=== PATIENT | male | born 1975 | race Caucasian/White ===

== ENCOUNTER 2025-04-03 06:22 | Inpatient (IN) | payer MEDICAID, SELFPAY ==
[2025-04-03] VITALS (10 sets, daily range): BP systolic 154–206; BP diastolic 97–134; PULSE 54–82; RESP 16–21; TEMP 36.1–36.6; O2SAT 95–98; BMI 29.2
--- NOTE | 2025-04-03 | XR_ITS ---
Examinations: MRI Brain without intravenous contrast. MRA brain without intravenous contrast. MRA carotids without intravenous contrast 3-D vascular reconstructions Date and time of exam: April 03, 2025 1438 hours onset stroke alert findings today, onset focal neurologic deficit altered mental status ectasia Technique: Multiple axial and sagittal images of the brain have been obtained MRA brain carotid images without contrast obtained, including 3-D postprocessing, vascular maximum intensity projection images Findings: Sellaturcica is not enlarged. The optic chiasm and infundibular stalk are not remarkable. Prepontine and interpeduncular cisterns are not enlarged. No localized enlargement of the medulla or kevin. Fourth ventricle and cerebellar tonsils normal in position. Subacute hemorrhage is not seen. Fourth ventricle is midline. Mass in the cerebellopontine angle region is not evident. 7th and 8th nerve complexes exhibits symmetry. Globes are symmetrical with no retro-orbital mass. Increased white matter signal prominent Diffusion-weighted images demonstrate small acute infarcts in the right basal ganglia including caudate nucleus Mass-effect upon the ventricular system is not identified. MRA carotid images no significant stenoses. MRA brain images no cerebral large vessel arterial occlusions Impression: Multiple small acute infarcts right basal ganglia including caudate nucleus
--- NOTE | 2025-04-03 06:29 | XR_ITS ---
Examination: CT brain head without contrast. 2-D sagittal coronal reconstructions Date and time of exam:April 03, 2025 0653 hours INDICATIONS: Stroke alert, onset focal neurologic deficit including left-sided body weakness slurred speech today CTDI: vol (mGy):51.4 DLP: (mGycm):1008 Technique: Multiple CT axial sections of the brain have been obtained, 5 mm slice thickness. Contrast has not been administered. 2-D sagittal, coronal reconstructions have been obtained Low dose protocols were performed. One or more of the following dose reduction techniques were used; automated exposure control, adjustment of the mA and/or KV according to patient size, use of iterative reconstruction technique. Findings: No significant ventricular enlargement. Multiple tiny old basal ganglia and left caudate nucleus infarcts Intra-axial or extra-axial hemorrhage density is not seen. No mass effect or midline shift Basal cisterns are not remarkable. Fourth ventricle is midline. Cranial vault intact. Impression: Negative for acute hemorrhage, mass effect or midline shift
--- NOTE | 2025-04-03 06:29 | XR_ITS ---
Examination: CTA carotids with intravenous contrast CTA brain, head with intravenous contrast. 2-D sagittal, coronal reconstructions. 3-D reconstructions. Exam date and time: April 03, 2025, 0658 hours INDICATIONS: Stroke alert, onset left-sided body weakness slurred speech today CTDI: vol (mGy) 39.4 DLP: (mGycm) 490. Technique: Multiple CTA axial brain, head carotid images post intravenous contrast injection 75 cc, Isovue-370. 2-D sagittal, coronal reconstructions. 3-D reconstructions, 3-D post processing including vascular maximum intensity projection images. Low dose protocols were performed. One or more of the following dose reduction techniques were used; automated exposure control, adjustment of the mA and/or KV according to patient size, use of iterative reconstruction technique. Findings: No significant common carotid carotid bifurcation or internal carotid artery stenoses Dominant right vertebral artery in the neck with no critical stenoses Intracranial vertebral arteries basilar artery posterior cerebral branches fill with no large vessel occlusions Juxtasellar internal carotid arteries and M1 segments middle cerebral arteries middle cerebral artery trifurcation vessels and anterior cerebral arteries fill with no large vessel occlusions IMPRESSION: No significant neck arterial stenoses No cerebral large vessel arterial occlusions or thromboses As clinically warranted, brain MRI MRA without contrast, stroke protocol, would best assess for demyelinating disease as well as acute ischemic change
[2025-04-03 06:46] LABS: Basophils # (Auto) 0.1 Thou/mm3 (0.0-0.2); Basophils % (Auto) 1 % (0-2.5); Eosinophils # (Auto) 0.4 Thou/mm3 (0.0-0.5); Eosinophils % (Auto) 3 % (0-10); Hematocrit 50.1 % (41.0-53.0); Hemoglobin 16.3 g/dL (13.5-16.0); Immature Granulocytes Auto 0.06 Thou/mm3 (0.00-0.00); Lymphocytes # (Auto) 2.6 Thou/mm3 (1.0-4.8); Lymphocytes % (Auto) 20 % (10-50); Mean Corpuscular HGB Conc 32.5 g/dl (31.0-37.0); Mean Corpuscular Hemoglobin 30.6 pg (25.0-35.0); Mean Corpuscular Volume 94 fL (80-100); Monocytes # (Auto) 0.9 Thou/mm3 (0.0-0.8); Monocytes % (Auto) 7 % (0-12); Neutrophils # (Auto) 9.1 Thou/mm3 (1.8-7.7); Neutrophils % (Auto) 69 % (37-80); Nucleated Red Blood Cell # 0.00 Thou/mm3 (0.00-0.00); Nucleated Red Blood Cell % 0 /100 WBC (0); Platelet Count 469 Thou/mm3 (140-440); RDW Standard Deviation 48.2 fL (35.1-43.9); Red Blood Count 5.33 Miln/mm3 (4.50-5.90); White Blood Count 13.1 Thou/mm3 (3.8-10.6)
[2025-04-03 06:57] LABS: INR 1.0 (0.9-1.3); Partial Thromboplastin Time 30.4 Seconds (22.0-36.0); Prothrombin Time 10.7 Seconds (9.0-12.2)
[2025-04-03 07:02] LABS: Alanine Aminotransferase 13 U/L (10-49); Albumin, Serum 4.8 gm/dL (3.5-5.0); Albumin/Globulin Ratio 1.7 (1.2-2.2); Alcohol, Blood Medical < 3.0 mg/dL (0-10.0); Alkaline Phosphatase 136 U/L (46-116); Anion Gap 9 (7-16); Aspartate Amino Transferase 19 U/L (0-34); BUN/Creatinine Ratio 13 Ratio (12-20); Bilirubin,Total 0.4 mg/dL (0.3-1.2); Blood Urea Nitrogen 15 mg/dL (9-23); Calcium 10.4 mg/dL (8.3-10.6); Calcium (Corrected) 10.4 mg/dL (8.5-10.1); Carbon Dioxide 27.9 mMol/L (20.0-31.0); Chloride 105 mMol/L (98-107); Creatinine (Component) 1.2 mg/dL (0.6-1.3); Estimated Creatinine Clearance 87.7 mL/min (>60); Globulin 2.8 gm/dL (2.3-3.5); Glucose 110 mg/dL (74-106); Magnesium 1.6 mg/dL (1.6-2.6); Osmolality,Calculated 284 (275-295); Potassium 3.8 mMol/L (3.4-5.1); Sodium 142 mMol/L (136-145); Total Protein 7.6 gm/dL (5.7-8.2); Troponin I 0.021 ng/mL (0.0-0.045); eGFR > 60 See Note
[2025-04-03] MEDS: SODIUM CHLORIDE 0.9% 1000 ML 1,000 ML 60 ML IV ×2 (07:13→17:42)
--- NOTE | 2025-04-03 07:17 | EKG_ITS ---
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
[2025-04-03 07:29] LABS: B-Type Natriuretic Peptide 56 pg/mL (0-100)
--- NOTE | 2025-04-03 07:29 | PD.EDNEURO ---
Neuro Symptoms Deficit-RME/HPI General Chief Complaint: General Adult/Misc Complain Stated Complaint: POSS STROKE Time Seen by Provider: 04/03/25 06:29 Arrival date/time: 04/03/25 06:22 Limitations: no limitations RME / HPI RME / HPI Narrative: 49 year old male with history of hypertension and medication noncompliance presents to the ED for evaluation of stroke-like symptoms beginning just before 14:25h yesterday. Reports sudden onset of being unable to form sentences accompanied by a mild headache, mild loss of balance, left facial droop and left sided weakness. States his symptoms persisted all through the evening and night. This morning, noted symptoms appeared slightly worse and presented to the ED. Initially refused to come to the hospital yesterday. Patient denies any history of stroke though does report family history of strokes. Denies fevers, chills, chest pain, cough, shortness of breath, abdominal pain, nausea, vomiting, diarrhea, constipation, or urinary symptoms. Related Data Previous Rx's ?Medication ?Instructions ?Recorded hydrochlorothiazide 25 mg tablet 25 mg PO QAM #10 tabs 01/02/18 Allergies Allergy/AdvReac Type Severity Reaction Status Date / Time NKA* Allergy Uncoded 01/02/18 09:10 Review of Systems Review of Systems Systems Reviewed: All systems reviewed, normal except as documented Past Medical History Past Medical History CARDIAC: Positive Hypertension; Negative Congestive Heart Failure RESPIRATORY: Negative Chronic Obstructive Pulmonary Disease (COPD) GENITOURINARY: Negative Renal Disease ENDOCRINE: Negative Diabetes Mellitus Type 1 or Diabetes Mellitus Type 2 Social History SMOKING STATUS: Current some day smoker ED Exam General Limitations: Present no limitations General appearance: Present alert and other (emotional, tearful ) Head Head exam: Present atraumatic, normocephalic and normal inspection Eye Eye exam: Present normal appearance, PERRL and EOMI ENT ENT exam: Present normal exam, normal oropharynx and mucous membranes moist Neck Neck exam: Present normal inspection, full ROM and trachea midline Chest Chest inspection: Present normal inspection and symmetric chest wall rise Respiratory Respiratory exam: Present normal lung sounds bilaterally Cardiovascular Cardiovascular exam: Present regular rate, normal rhythm and normal heart sounds Abdominal Exam Abdominal exam: Present soft and normal bowel sounds Extremities Exam Extremities exam: Present normal inspection and full ROM Back Exam Back exam: Present normal inspection and full ROM Neurological Exam Neurological exam: Present alert, oriented X3 and other (Mild left facial droop, mild left upper and left lower extremity weakness, normal gait, mild to moderate expressive aphasia, no receptive aphasia) Psychiatric Psychiatric exam: Present normal affect and normal mood Skin Skin exam: Present warm, dry, intact and normal color Course Quality Measures Suspected type of Stroke: Acute Ischemic Last known well (date): 04/02/25 Last known well (time): 14:45 Tenecteplase given: Reason(s) TPA not given: Outside the time window not given stroke Orders Category Date Time Status Bedside Blood Glucose NOW Care 04/03/25 06:29 Active COVID-19 Screening Questionnaire NOW Care 04/03/25 07:24 Active Tail Sawyer NOW Care 04/03/25 06:29 Active Continuous Pulse Oximetry NOW Care 04/03/25 06:29 Completed Decision to Admit X1 Care 04/03/25 07:23 Completed EKG (ED ONLY) *Do not use* NOW Care 04/03/25 07:17 Completed Insert IV NOW Care 04/03/25 06:29 Active NIH Stroke Scale now Care 04/03/25 06:29 Active NPO NOW Care 04/03/25 06:29 Active Neuro Check Q15MIN Care 04/03/25 06:29 Active Nurse Swallow Screen x1 Care 04/03/25 06:29 Active Consult to Neurology / Tele-Neurology Routine Cons 04/03/25 06:[address] angio stroke protocol Stat Exams 04/03/25 06:[address] stroke protocol Stat Exams 04/03/25 06:29 Completed EKG (ED Only) Stat Exams 04/03/25 07:17 Draft Alcohol, Blood Medical Stat Lab 04/03/25 06:32 Completed B-Type Natriuretic Peptide Stat Lab 04/03/25 06:32 Completed CBC Stat Lab 04/03/25 06:32 Completed Comprehensive Metabolic Panel Stat Lab 04/03/25 06:32 Completed Drug Screen,Urine Stat Lab 04/03/25 06:29 Ordered Magnesium Stat Lab 04/03/25 06:32 Completed Partial Thromboplastin Time Stat Lab 04/03/25 06:32 Completed Prothrombin Time with INR Stat Lab 04/03/25 06:32 Completed Troponin I Stat Lab 04/03/25 06:32 Completed Urinalysis Stat Lab 04/03/25 06:29 Ordered Urine Culture Stat Lab 04/03/25 06:29 Ordered Aspirin Med 04/03/25 07:15 Discontinued 325 mg PO X1 ONE Clopidogrel [Plavix] Med 04/03/25 07:15 Discontinued 150 mg PO X1 ONE Sodium Chloride 0.9% 1000 ml [Ns] 1,000 ml Med 04/03/25 06:30 Active IV Q10H Oxygen Delivery NOW RT 04/03/25 06:29 Active Vital Signs Vital signs: Vital Signs Pulse Rate 76 04/03/25 06:22 Respiratory Rate 21 H 04/03/25 06:22 Blood Pressure 206/128 H 04/03/25 06:22 Pulse Oximetry (%) 95 04/03/25 06:22 Oxygen Delivery Method Room Air 04/03/25 06:22 Pulse ox is 95% on room air which is adequate. Neuro Symptoms / Deficit MDM Narrative MDM Narrative:: Tessa Dunham am scribing for and in the presence of Dr. Patton. Patient data External records reviewed:: [facility] previous records (I reviewed ED Visit on 01/02/2018 for uncontrolled hypertension ) Clinical information provided by:: patient and spouse ( adds to hpi) Social determinants that could affect healthcare access:: none Patient has the following chronic illnesses:: Hypertension with medication non-compliance How is presenting disease/condition affected by chronic disease/condition?: exacerbated by Evaluation data The following diagnostics were reviewed and interpreted by me:: lab results, radiology exam(s) and EKG tracing(s) (04/03/2025 @ 07:22h. NSR, rate 75, no STEMI. ) Lab and/or radiology exams considered but not ordered:: None Interpretation Summary: Ordering Physician: Jef Patton MD Date of Service: 04/03/25 Procedure(s): CT stroke protocol Accession Number(s): [id number] cc: Jef Patton MD; Humza Garcia MD; Temporary Provider,ED ~ Examination: CT brain head without contrast. 2-D sagittal coronal reconstructions Date and time of exam:April 03, 2025 0653 hours INDICATIONS: Stroke alert, onset focal neurologic deficit including left-sided body weakness slurred speech today CTDI: vol (mGy):51.4 DLP: (mGycm):1008 Technique: Multiple CT axial sections of the brain have been obtained, 5 mm slice thickness. Contrast has not been administered. 2-D sagittal, coronal reconstructions have been obtained Low dose protocols were performed. One or more of the following dose reduction techniques were used; automated exposure control, adjustment of the mA and/or KV according to patient size, use of iterative reconstruction technique. Findings: No significant ventricular enlargement. Multiple tiny old basal ganglia and left caudate nucleus infarcts Intra-axial or extra-axial hemorrhage density is not seen. No mass effect or midline shift Basal cisterns are not remarkable. Fourth ventricle is midline. Cranial vault intact. Impression: Negative for acute hemorrhage, mass effect or midline shift Dictated By: Humza Garcia MD Signed By: <Electronically signed by Humza Garcia MD in OV> 04/03/25 0644 Ordering Physician: Jef Patton MD Date of Service: 04/03/25 Procedure(s): CT angio stroke protocol Accession Number(s): [id number] cc: Jef Patton MD; Steven Green MD; Humza Garcia MD~ Examination: CTA carotids with intravenous contrast CTA brain, head with intravenous contrast. 2-D sagittal, coronal reconstructions. 3-D reconstructions. Exam date and time: April 03, 2025, 0658 hours INDICATIONS: Stroke alert, onset left-sided body weakness slurred speech today CTDI: vol (mGy) 39.4 DLP: (mGycm) 490. Technique: Multiple CTA axial brain, head carotid images post intravenous contrast injection 75 cc, Isovue-370. 2-D sagittal, coronal reconstructions. 3-D reconstructions, 3-D post processing including vascular maximum intensity projection images. Low dose protocols were performed. One or more of the following dose reduction techniques were used; automated exposure control, adjustment of the mA and/or KV according to patient size, use of iterative reconstruction technique. Findings: No significant common carotid carotid bifurcation or internal carotid artery stenoses Dominant right vertebral artery in the neck with no critical stenoses Intracranial vertebral arteries basilar artery posterior cerebral branches fill with no large vessel occlusions Juxtasellar internal carotid arteries and M1 segments middle cerebral arteries middle cerebral artery trifurcation vessels and anterior cerebral arteries fill with no large vessel occlusions IMPRESSION: No significant neck arterial stenoses No cerebral large vessel arterial occlusions or thromboses As clinically warranted, brain MRI MRA without contrast, stroke protocol, would best assess for demyelinating disease as well as acute ischemic change Dictated By: Humza Garcia MD Signed By: <Electronically signed by Humza Garcia MD in OV> 04/03/25 0741 Medications / Prescriptions Medications or Prescriptions considered but not ordered:: none Medication administrations:: Medication Administration History Sodium Chloride (Ns) 1,000 mls @ 60 mls/hr IV Q10H YAMILETH Stop: 05/03/25 06:29 Last Admin: 04/03/25 07:13 Dose: 60 mls/hr Documented By: DB Discontinued Medications Aspirin (Aspirin 325 Mg Tablet) 325 mg PO X1 ONE Stop: 04/03/25 07:16 Clopidogrel Bisulfate (Clopidogrel Bisulfate 75 Mg Tablet) 150 mg PO X1 ONE Stop: 04/03/25 07:16 See above Consultations Consultation(s) initiated? (list below): Yes Consultation #1 (Physician, Specialty, Details): I spoke with teleneurologist and recommends starting the patient on Plavix and Aspirin and admission from stroke work-up. Diagnosis Neuro Differential Diagnosis: subarachnoid hemorrhage, cerebrovascular accident and transient cerebral ischemia Most likely diagnosis given after review of the tests above:: Acute CVA Accelerated hypertension Admission Indicated Admission indicated?: indicated Admission Request Was there a request for admission?: Yes Admission Attestation Admission request attestation: Discussed case with [] from Hospitalist service regarding admission. Discussed patients ED course, exam findings, labs, and radiology results. The Hospitalist [agrees,declines] to accept the patient for admission. Disposition Plan Disposition Plan: Admit Critical Care Time Critical Care Time Critical Care Time: Yes Total Critical Care Time (min.): 45 Attestation: The high probability of sudden, clinically significant deterioration in the patient's condition required the highest level of my preparedness to intervene urgently. The services I provided to this patient were to treat and/or prevent clinically significant deterioration. Services included the following: chart data review, reviewing nursing notes and/or old charts, documentation time, customer support consultant collaboration regarding findings and treatment options, medication orders and management, direct patient care, vital sign assessments and ordering, interpreting and reviewing diagnostic studies and lab tests. Aggregate critical care time includes only time during which I was engaged in work directly related to the patient's care, as described above, whether at bedside or elsewhere in the Emergency Department. It did not include time spent performing other reported procedures or the services of residents, students, nurses or physician assistants. Discharge Plan Plan Patient Disposition: Admit Acute Care w/in Hospital Prescriptions/Referrals Prescriptions/Med Rec: No Action hydrochlorothiazide 25 mg tablet 25 mg PO QAM Qty: 10 0RF Referrals: Temporary Provider,ED [Physician] - In 1 week Problem List Clinical Impression: Acute cerebrovascular accident (CVA), Accelerated hypertension Patient/Caregiver Discharge Instructions Print Language: Iranian Stand Alone Forms: Yakelin Award Info., Patient Portal Info Letter
--- NOTE | 2025-04-03 07:51 | ESCONSULT_ITS ---
Tele Neuro Consultation Consultation Date 04/03/25 Most Recent Vital Signs Last Vital Signs Pulse 78 04/03/25 07:14 Resp 21 H 04/03/25 06:22 BP 206/128 H 04/03/25 06:22 Pulse Ox 95 04/03/25 06:22 O2 Del Method Room Air 04/03/25 06:22 Laboratory-Coagulation Panel PT 10.7 Seconds (9.0-12.2) 04/03/25 06:32 INR 1.0 (0.9-1.3) 04/03/25 06:32 APTT 30.4 Seconds (22.0-36.0) 04/03/25 06:32 Consultation Narrative [facility] Consult [facility] Patient Name:???Catalina Ching Date of :???1975 Identification Number:??? Date of Service:???04/03/2025 06:29:43 Diagnosis:?I63.00 - Cerebrovascular accident (CVA) due to thrombosis of precerebral artery (HCCC) Impression: ?Patient is a 49 year old male with history of hypertension who presents for dysarthria and left sided weakness. The symptoms have been ongoing since yesterday afternoon. He is hypertensive on arrival. Presentation concerning for a right subcortical small vessel stroke in setting of poorly controlled blood pressure. Patient states he has not been taking his medications. Admit for further imaging and stroke workup. Our recommendations are outlined below. Recommendations: ? Stroke/Telemetry Floor ? Neuro Checks (Q4) ? Bedside Swallow Eval ? DVT Prophylaxis ? IV Fluids, Normal Saline ? Head of Bed 30 Degrees ? Euglycemia and Avoid Hyperthermia (PRN Acetaminophen) ? Bolus with Clopidogrel 300 mg bolus x1 and initiate dual antiplatelet th erapy with Aspirin 81 mg daily and Clopidogrel 75 mg daily ? Antihypertensives PRN if Blood pressure is greater than 220/120 or there is a concern for End organ damage/contraindications for permissive HTN. If blood pressure is greater than 220/120 give labetalol PO or IV or Vasotec IV with a goal of 15% reduction in BP during the first 24 hours. ?MRI brain imaging ?2d echo with bubble study ?consider CINTHIA if negative ?telemetry monitoring ?check lipid panel and HgA1C ?lipitor 80mg ?smoking cessation ?PT/OT/speech ?npo until swallow eval performed ?fu with inpatient neurology Sign Out: ? Discussed with Emergency Department Provider Advanced Imaging: CTA Head and Neck Completed. LVO:No Patient is not a candidate for DANIELLE Metrics: Last Known Well: 04/02/2025 14:45:00 Dispatch Time: 04/03/2025 06:29:42 Arrival Time: 04/03/2025 06:22:00 Initial Response Time: 04/03/2025 06:35:00Symptoms: slurred speech and left sided weakness since 2:45pm yesterday. Initial patient interaction: 04/03/2025 06:42:30 NIHSS Assessment Completed: 04/03/2025 06:55:15Patient is not a candidate for Thrombolytic. Thrombolytic Medical Decision: 04/03/2025 06:55:16Patient was not deemed candidate for Thrombolytic because of following reasons: LKW outside 4.[address] Head: I personally reviewed all the CT images that were available to me and it showed: no acute abnormalities Primary Provider Notified of Diagnostic Impression and Management Plan on: 04/03/2025 06:55:27 History of Present Illness:Patient is a 49 year old Male. Patient was brought by private transportation with symptoms of slurred speech and left sided weakness since 2:45pm yesterday. Patient is a 49 year old male with history of hypertension who presents for dysarthria and left sided weakness. The symptoms began yesterday at 2:45 pm and have not improved. He is struggling to articulate and enunciate the words. He has numbness in left arm and face. Past Medical History: ?Hypertension ?There is no history of Diabetes Mellitus ?There is no history of Hyperlipidemia ?There is no history of Atrial Fibrillation ?There is no history of Stroke Medications: No Anticoagulant use? No Antiplatelet use Reviewed EMR for current medications Allergies:? Reviewed Social History: Smoking: Yes Alcohol Use: No Drug Use: No Family History: There is no family history of premature cerebrovascular disease pertinent to this consultation ROS : 14 Points Review of Systems was performed and was negative except mentioned in HPI. Past Surgical History: There Is No Surgical History Contributory To Today?s Visit Examination: BP(206/128),?Pulse(76),?Blood Glucose(121) 1A: Level of Consciousness - Alert; keenly responsive?+ 0 1B: Ask Month and Age - Both Questions Right?+ 0 1C: Blink Eyes & Squeeze Hands - Performs Both Tasks?+ 0 2: Test Horizontal Extraocular Movements - Normal?+ 0 3: Test Visual Robison - No Visual Loss?+ 0 4: Test Facial Palsy (Use Grimace if Obtunded) - Normal symmetry?+ 0 5A: Test Left Arm Motor Drift - Drift, but doesn't hit bed?+ 1 5B: Test Right Arm Motor Drift - No Drift for 10 Seconds?+ 0 6A: Test Left Leg Motor Drift - Drift, but doesn't hit bed?+ 1 6B: Test Right Leg Motor Drift - No Drift for 5 Seconds?+ 0 7: Test Limb Ataxia (FNF/Heel-Wright) - No Ataxia?+ 0 8: Test Sensation - Mild-Moderate Loss: Less Sharp/More Dull?+ 1 9: Test Language/Aphasia - Normal; No aphasia?+ 0 10: Test Dysarthria - Mild-Moderate Dysarthria: Slurring but can be understood?+ 1 11: Test Extinction/Inattention - No abnormality?+ 0 NIHSS Score:?4 Pre-Morbid Modified [place] Scale:0 Points = No symptoms at all Spoke with :?mira lopez This consult was conducted in real time using interactive audio and video technology. Patient was informed of the technology being used for this visit and agreed to proceed. Patient located in hospital and provider located at home/office setting. Patient is being evaluated for possible acute neurologic impairment and high probability of imminent or life-threatening deterioration. I spent total of -130 minutes providing care to this patient, including time for face to face visit via telemedicine, review of medical records, imaging studies and discussion of findings with providers, the patient and/or family. Dr Chaparrita Martinez [facility] For Inpatient follow-up with [facility] physician please call [facility] at . As we are not an outpatient service for any post hospital discharge needs please contact the hospital for assistance. If you have any questions for the [facility] physicians or need to reconsult for clinical or diagnostic changes please contact us via [facility] at . Signature :Yaw Martinez
[2025-04-03] MEDS: CLOPIDOGREL BISULFATE 75 MG TABLET 150 MG PO (07:56)
--- NOTE | 2025-04-03 08:39 | ECHO_ITS ---
Transthoracic Echo Report Ht (in): 71 Wt (lb): 210 Exam Location: Echo Lab Status: Emergency Liquid Sugar Melter: Indications: Procedure Performed: BP: 154 / 98 HR: MEASUREMENTS (Male / Female) Normal Values 2D ECHO LV Diastolic Diameter PLAX 4.8 cm 4.2 - 5.9 / 3.9 - 5.3 cm LV Systolic Diameter PLAX 3.0 cm IVS Diastolic Thickness 1.3 cm 0.6 - 1.0 / 0.6 - 0.9 cm LVPW Diastolic Thickness 1.5 cm 0.6 - 1.0 / 0.6 - 0.9 cm LV Relative Wall Thickness 0.6 LVOT Diameter 2.0 cm LA Volume Index 33.2 cm?/m? 16 - 28 cm?/m? Ascending Aorta Diameter 2.8 cm M-MODE AV Cusp Separation MM 2.0 cm DOPPLER AV Peak Velocity 189.0 cm/s AV Peak Gradient 14.3 mmHg AV Mean Gradient 7.0 mmHg AV Velocity Time Integral 40.3 cm LVOT Peak Velocity 109.0 cm/s LVOT Peak Gradient 4.8 mmHg LVOT Velocity Time Integral 25.9 cm AV Area Cont Eq vti 2.0 cm? AV Area Cont Eq pk 1.8 cm? MV Area PHT 4.3 cm? Mitral E Point Velocity 69.8 cm/s Mitral A Point Velocity 73.7 cm/s Mitral E to A Ratio 0.9 LV E' Lateral Velocity 7.3 cm/s Mitral E to LV E' Lateral Ratio 9.6 LV E' Septal Velocity 6.7 cm/s Mitral E to LV E' Septal Ratio 10.4 TR Peak Velocity 148.0 cm/s TR Peak Gradient 8.8 mmHg PV Peak Velocity 97.0 cm/s PV Peak Gradient 3.8 mmHg FINDINGS Left Ventricle Normal left ventricular size, wall thickness, systolic function with no obvious regional wall motion abnormalities. Normal left ventricular diastolic filling pattern for age. The ejection fraction is visually estimated at _65 %. Right Ventricle The right ventricle is normal in size and systolic function. T Left Atrium The left atrium is normal by two-dimensional, color flow and Doppler imaging with no structural abnormalities, no thrombus formation present. Right Atrium The right atrium is normal by two-dimensional imaging, color flow and Doppler imaging with no structural abnormalities, no thrombus formation present. Atrial Septum The interatrial septum appears normal with no evidence of a shunt. Aorta The aorta is normal by two-dimensional, color flow and Doppler interrogation. Mitral Valve The mitral valve is normal by two-dimensional, color flow and Doppler interrogation. There is no significant mitral valve regurgitation, stenosis or prolapse. Aortic Valve The aortic valve is trileaflet and normal by two-dimensional, color flow and Doppler interrogation. There is no significant aortic valve regurgitation. Tricuspid Valve The tricuspid valve is normal by two-dimensional, color flow and Doppler interrogation. There is no significant tricuspid valve regurgitation. Pulmonic Valve The pulmonic valve is not well visualized. There is no significant pulmonic valve regurgitation. Vessels The pulmonary artery appears normal. The inferior vena cava pulmonary and hepatic veins appear normal. Pericardium The pericardium is normal by two-dimensional imaging. There is no significant pericardial effusion. Other Findings negative bubble study CONCLUSIONS The transthoracic study is normal by two-dimensional, color flow imaging and Doppler interrogation . Normal left ventricular size and function. NEGATIVE BUBBLE STUDY No evidence of intrcardiac shunts Approximate ejection fraction is 50-55%. No wall motion abnormalities noted. Candace Villarreal (Electronically Signed) Final Date: 06 April 2025 12:07
[2025-04-03 08:41] LABS: Collection Type, Urine Catheter; Squamous Epithelial Cell,Urine 0 /hpf (0-5)
[2025-04-03 08:59] LABS: Bilirubin,Urine Negative (Negative); Blood,Urine Negative (Negative); Clarity,Urine Clear (Clear/Hazy); Color,Urine Lt-Yellow (Lt Yel-Yel); Glucose, Urine Negative (Negative); Ketones,Urine Negative (Negative); Leukocyte Esterase,Urine Negative (Negative); Nitrite,Urine Negative (Negative); PH,Urine 7.0 (5.0-7.0); Protein,Urine Negative (Neg - Trace); RBC,Urine 2 /hpf (0-3); Urobilinogen,Urine Negative mg/dL (0.0-1.0); WBC,Urine 1 /hpf (0-5)
[2025-04-03 09:04] LABS: Amphetamine/Methamp Scrn,U Positive (Negative); Barbiturate Screen,Urine Negative (Negative); Benzodiazepines Screen,Urine Negative (Negative); Benzoylecgonine Screen, Ur Negative (Negative); Fentanyl Screen,Urine Negative (Negative); Opiate Screen,Urine Negative (Negative); THC Screen,Urine Negative (Negative)
[2025-04-03] MEDS: LABETALOL INJ 5 MG/ML VIAL 20 ML 10 MG IVP (09:25)
[2025-04-03 09:28] LABS: Specific Gravity,Urine 1.015 (1.001-1.035)
[2025-04-03] MEDS: ENOXAPARIN SOD INJ 40 MG/0.4 ML SYRINGE SC (09:31)
--- NOTE | 2025-04-03 09:32 | ESHP_ITS ---
<Statement entered by Eric Green MD - 04/04/25 06:37> Patient was examined and case was reviewed with team including attending physician. Note reviewed, I agree with most of its contents and agree with the patient's care. Eric Green MD PGY-2 Documentation for date of: 04/03/25 HPI History of Present Illness History of present illness: Mr. Ching is a 49 y/o male with PMH of HTN on Lisinopril who presented to the ED with dysarthria and left facial droop. LKAW 04/02 2:30 PM. Symptoms began with dizziness, headache, mild loss of balance, left UE and LE weakness while he was building a horse gooden. Symptoms did not improve, and patient did not seek immediate medical attention. This morning, patient woke up and noticed the symptoms persisted, came to the ED. UDS + methamphetamine. Patient reports that his friend gave him a pill about an hour before symptom onset, thinks that it was an amphetamine. Denies habitual use of amphetamines. Denies hx of stroke, TIA, RI, arrhythmia, CHF, DM, cancer. Reports that he previously had chest pain previously, unknown if angina, was prescribed aspirin 81 mg daily. Denies subjective fever, chills, N/V/D/C, headache, photophobia. Patient evaluated at bedside. Left-sided weakness has improved, but pt continues to have slurred speech, left lower facial droop, decreased sensation to left upper and lower face. Failed bedside swallow study. Denies subjective ever, chills, headache, dizziness, falls, previous head trauma. Denies recent illness or sick contacts. ED course: Afebrile, BP 206/134. Consulted tele neuro, NIHSS 4 (Left arm motor drift, Left leg motor drift, less sharp/more dull sensation, slurring but can be understood). Patient deemed not a candidate for tPA. CT head negative for acute hemorrhage, midline shift, mass effect. CTA negative for LVO of neck arterial stenoses. MRI/MRA brain w/ and w/o contrast pending. Loaded with ASA and plavix. Given 1L NS at 60 mL/hr. PMHx: Hypertension Allergies: NKDA Home meds: ASA 81 mg daily (not confirmed by pharmacy), Lisinopril 10 mg daily (Rx Dr Feliz Melchor, last filled 05/19/23 by [facility] on [address]) SgHx: None SHx: Current smoker, 1PPD for at least 10 years. Denies EtOH or recreational drug use. UDS + methamphetamine. Lives at home with and kids. FHx: Mom - stroke, grandma - skin cancer Review of Systems Review of Systems Narrative Review of Systems: 14 point ROS negative other than HPI Exam Vital Signs Pulse Resp BP Pulse Ox O2 Del Method 73 18 201/124 H 97 Room Air 04/03/25 09:25 04/03/25 07:46 04/03/25 09:25 04/03/25 07:46 04/03/25 06:22 Narrative Exam General: No acute distress, well nourished Eye: PERRL, EOMI, normal conjunctiva, no scleral icterus HENT: Normocephalic, atraumatic, hearing intact to conversation at normal volume, moist oral mucosa Neck: Supple, non-tender, no JVD, no lymphadenopathy Lungs: CTAB, Non-labored respirations, symmetric chest rise Heart: Peripheral pulses intact bilaterally, S1 and S2 present, no MRG Abdomen: Soft, non-tender, non-distended Musculoskeletal: Normal range of motion and strength Skin: Skin is warm, dry, no rashes or lesions. Psychiatric: Cooperative, appropriate mood and affect Neurologic: Mental status: Orientation: Oriented to person, place, time, and situation Communication: Patient is cooperative and can follow simple instructions Language: Slurred speech, normal rate and volume, comprehension intact, naming intact, repetition intact Cranial nerves: CN II: Visual calero intact CN III: Pupils equal, round, and reactive to light CN III, IV, : No gaze deviation, no nystagmus Horizontal pursuit: intact Vertical pursuit: intact Ptosis: none CN V: Facial sensation to light touch intact at the forehead, cheeks, and jaw line L>R (more dull sensation to touch in V1, V2, V3 on the right) CN VII: Right lower facial droop CN VIII: Able to hear and respond to conversation at normal volume, intact to finger rub CN IX, X: Palate elevation symmetric, uvula midline CN XI: Head turn and shoulder shrug strong, symmetric bilaterally CN XII: Normal tongue protrusion without deviation, no fasciculations Motor: Normal bulk and tone No atrophy No abnormal movements or fasciculations Muscle strength: Shoulder abduction: R 5/5 L 5/5 Elbow flexion: R 5/5 L 5/5 Elbow extension: R 5/5 L 5/5 Hip flexion: R 5/5 L 5/5 Hip extension: R 5/5 L 5/5 Knee flexion: R 5/5 L 5/5 Knee extension: R 5/5 L 5/5 Sensory: RUE: Light touch intact LUE: Light touch intact RLE: Light touch intact LLE: Light touch intact No clonus Plantar reflex downgoing bilaterally Cerebellum: RUE: No dysmetria (finger to nose) LUE: No dysmetria (finger to nose) Results: Labs 04/04/25 05:28 04/04/25 05:28 Labs: Short CBC 04/03/25 Range/Units 06:32 WBC 13.1 H (3.8-10.6) Thou/mm3 Hgb 16.3 H (13.5-16.0) g/dL Hct 50.1 (41.0-53.0) % Plt Count 469 H (140-440) Thou/mm3 BMP 04/03/25 06:32 Sodium 142 Potassium 3.8 Chloride 105 Carbon Dioxide 27.9 BUN 15 Creatinine 1.2 Glucose 110 H Calcium 10.4 Cardiac Enzymes 04/03/25 Range/Units 06:32 Troponin I 0.021 (0.0-0.045) ng/mL Liver Function 04/03/25 Range/Units 06:32 Total Bilirubin 0.4 (0.3-1.2) mg/dL AST 19 (0-34) U/L ALT 13 (10-49) U/L Alkaline Phosphatase 136 H (46-116) U/L Albumin 4.8 (3.5-5.0) gm/dL Urine 04/03/25 Range/Units 08:20 Urine Color Lt-Yellow (Lt Yel-Yel) Urine Clarity Clear (Clear/Hazy) Urine pH 7.0 (5.0-7.0) Ur Specific Jones 1.015 (1.001-1.035) Urine Protein Negative (Neg - Trace) Urine Glucose (UA) Negative (Negative) Quality Measures Quality Measures stroke Suspected type of Stroke: Acute Ischemic Last known well (date): 04/02/25 Last known well (time): 14:45 Tenecteplase given: Reason(s) Tenecteplase not given: Outside the time window not given Rehab services: PT evaluation ordered and Speech Language Pathology eval ordered VTE Prophylaxis: pharmaceutical Antithrombotic by day 2:: not indicated (describe) Statin ordered: <75 y/o high intensity dose Anticoagulation ordered for A-fib or flutter (current or hx): not indicated Medications Home Medications and Allergies Allergies Allergy/AdvReac Type Severity Reaction Status Date / Time No Known Allergies Allergy Unverified 04/03/25 15:18 Visit Medications Acetaminophen (Acetaminophen 325 Mg Tablet) 650 mg PO Q6H PRN PRN Reason: Fever >101.5 Stop: 05/03/25 08:31 Acetaminophen (Acetaminophen 325 Mg Tablet) 650 mg PO Q6H PRN PRN Reason: PAIN SCALE 1-3 (mild Stop: 05/03/25 08:31 Atorvastatin Calcium (Atorvastatin Calcium 20 Mg Tablet) 80 mg PO HS [facility] Stop: 05/03/25 08:44 Last Admin: 04/03/25 09:28 Dose: Not Given Clopidogrel Bisulfate (Clopidogrel Bisulfate 75 Mg Tablet) 75 mg PO DAILY Y[facility] Stop: 05/03/25 08:59 Last Admin: 04/03/25 09:28 Dose: Not Given Enoxaparin Sodium (Enoxaparin Sod Inj 40 Mg/0.4 Ml Syringe) 40 mg SC QDAY [facility] Stop: 04/17/25 08:59 Sodium Chloride (Ns) 1,000 mls @ 60 mls/hr IV Q10H [facility] Stop: 05/03/25 06:29 Last Admin: 04/03/25 07:13 Dose: 60 mls/hr Ondansetron HCl (Ondansetron Inj 2 Mg/Ml Inj 2 Ml) 4 mg IVP Q6H PRN; Protocol PRN Reason: NAUSEA OR VOMITING Stop: 05/03/25 08:31 Discontinued Medications Aspirin (Aspirin 325 Mg Tablet) 325 mg PO X1 ONE Stop: 04/03/25 07:16 Last Admin: 04/03/25 07:55 Dose: 325 mg Aspirin (Aspirin Ec 81 Mg Tabec) 81 mg PO X1 ONE Stop: 04/03/25 08:37 Last Admin: 04/03/25 09:28 Dose: Not Given Atorvastatin Calcium (Atorvastatin Calcium 20 Mg Tablet) 40 mg PO HS Y[facility]ILETH Stop: 05/03/25 20:59 Clopidogrel Bisulfate (Clopidogrel Bisulfate 75 Mg Tablet) 150 mg PO X1 ONE Stop: 04/03/25 07:16 Last Admin: 04/03/25 07:56 Dose: 150 mg Labetalol HCl (Labetalol Inj 5 Mg/Ml Vial 20 Ml) 10 mg IVP X1 ONE Stop: 04/03/25 08:38 Last Admin: 04/03/25 09:25 Dose: 10 mg Assessment & Plan Plan Mr. Ching is a 49 y/o male with PMH of HTN who presented to the ED with dysarthria, left lower facial droop, and decreased sensation of left upper and lower face. Admitted for stroke w/u. UDS + methamphetamine, BP 206/134. # Acute ischemic infarct of right basal ganglia Not a candidate for tPA or thrombectomy given outside of tPA window, no LVO. Hx stroke/TIA: none Hx afib: none Smoking hx: 1PPD x at least 10 years Initial symptoms: dysarthria, left facial droop, left UE and LE weakness, dizziness, headache, mild loss of balance. 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 Continues to have dysarthria, left lower facial droop, decrease of sensation left face in V1, V2, V3 distribution LKAW: 04/02 at 14:30 Initial NIHSS: 4 (Left arm motor drift, Left leg motor drift, less sharp/more dull sensation, slurring but can be understood) Inital BP: 206/134 EKG: NSR HR 75, QTc 457 Initial glucose: 110 UDS: +methamphetamine EtOH: <3 A1C: 5.6 Lipids: Triglyceride 100, Cholesterol 234 high, LDL 131 high, HDL 83 TSH: 1.96 WNL Troponin: negative x1 CT head w/o: Negative for acute hemorrhage, mass effect, midline shift CTA head/neck w/: Negative for LVO, neck arterial stenoses MRI/MRA w/ and w/o: Multiple small acute infarcts of the right basal ganglia including caudate nucleus TTE: pending Meds given: Loaded with Aspirin and Plavix in ED. Given 1L NS at 60 mL/hr in ED. Labetalol 10 mg IV x1 given before UDS resulted. DDX: Large vessel atherosclerosis (thrombus), cardioembolic, small vessel (lacunar) disease, hypercoagulable state, arterial dissection, vasculitis, substance use Most likely small vessel (lacunar) disease 2/2 hypertension/hypertensive emergency Plan: - If NIHSS <=5 (minor) --> DAPT x 21 days followed by single antiplatelet therapy - ASA 81 mg daily - Plavix 75 mg daily x 21 days - Can use IV enalapril if sBP >220 or dBP > 120 (preferred in HTN i/s/o catecholamine excess, as it does not increase sympathetic outflow or unopposed alpha stimulation). If indicated, goal is to lower BP by 15% after 24 hours after stroke onset to avoid hypoperfusion and neuro deterioration. - Atorvastatin 80 mg daily - Pending TTE w/ bubble study - PT consulted - F/U outpatient neurology - Neuro Checks - Aspiration Precautions, Head of bed 30 degrees - Euglycemia and avoid Hyperthermia - Dysphagia 3 diet/regular liquids with precautions - Avoid beta blockers given meth use, as they can lead to unopposed alpha- adrenergic stimulation which can worsen vasospasms and cause reflex tachycardia - Avoid hydralazine given meth use. Hydralazine is a direct arterial vasodilator and can cause significant reflex sympathetic activation #Hypertensive emergency Initial BP 206/134, increased during evaluation at bedside, given labetalol 10 mg IV x1 Evidence of end-organ damage with possible stroke/TIA/focal neuro deficits Trop negative, BNP negative Plan: - CTM with telemetry - See above for BP management parameters #Leukocytosis Most likely 2/2 hypertensive emergency / TIA / stroke UA negative Plan: - CTM with daily CBC #Thrombocytosis Most likely reactive i/s/o hypertensive emergency / TIA / stroke Plan: - CTM with daily CBC Checklist Dispo: Pending stroke w/u Diet: Cardiac, Dysphagia 3 diet/regular liquids with precautions Bowel Reg: Doc-senna PRN VTE ppx: Lovenox 40 mg subQ daily GI ppx: none Pain mgmt: Tylenol PRN Code status: full Plan discussed with Dr. Segal and Clemencia Neal MD PGY1 Attending Provider Attestation/Addendum I, Clarice Khanna DO, attest that I was physically present for the curiel portions of the service and evaluated the patient with the resident and I reviewed and discussed the case with the resident and agree with the resident's findings and plans of care as documented above Patient is a 49-year-old male with past medical history of hypertension who presents to the ED with difficulty with speech and left facial droop. He states that the symptoms began yesterday in the afternoon when he was working on on a project. He reported dizziness, unsteadiness and left sided weakness at the time. Patient thought he would rest and symptoms would resolve. However, due to persistence of symptoms this morning, patient came to the ED. He continues to have difficulty finding words while speaking. Patient can respond to simple questions. He denies any active drug use. He is noted to have been positive for methamphetamine. Patient states that he takes lisinopril at home. Stroke alert was called in the ED and CT head which done showing no acute intracranial findings. CTA was also negative. On exam, patient has equal strength 4+ out of 5 in bilateral upper and lower extremities. Gross sensation is intact in bilateral upper and lower extremities. Speech is fragmented and delayed. Patient noted to have a left facial droop as well. Patient states that he drove himself to the ED himself. Blood pressure is significantly elevated at 206/134. Will admit patient to telemetry for further workup medical management of acute CVA. Pending MRI and echo at this time.Will f/u with neurology recommendations.
[2025-04-03 10:00] LABS: Cardiac Risk Estimate 2.8 RATIO (4.0-6.7); Cholesterol 234 mg/dL (132-200); HDL Cholesterol 83 mg/dL (40-60); LDL Cholesterol,Calculated 131 mg/dL (0-130); Thyroid Stimulating Hormone 1.96 uIU/mL (0.55-4.78); Triglycerides 100 mg/dL (30-150)
[2025-04-03 10:33] LABS: Glucose Estimated Average 114 mg/dL (80-131); Hemoglobin A1C 5.6 % Hgb (4.8-6.0)
--- NOTE | 2025-04-03 14:59 | PD.RESCONSUL ---
HPI Data of Consult Requesting Physician: Clarice Khanna DO Admitting Provider: Clarice Khanna DO Attending Provider: Clarice Khanna DO Primary Care Provider: Steven Green MD Consult Narrative History of present illness: CC: slurred speech and left extremity weakness. Patient is a 49-year-old male with a past medical history of hypertension medication not adherent and history of psoriasis who presented to the emergency room with a chief complaint of slurred speech that started approximately 2:30 PM on 04/02/2025. Patient also complaining of left upper and lower extremity weakness with headache. Patient did take an aspirin 81 mg p.o. patient is a current smoker [id number] history. Patient stated substance use disorder, drug of choice not, per patient has been abstinence for 6 years. Patient denied meth use currently, but U tox is positive for methamphetamines. Patient denied seizure-like activity. Patient denied any recent sick contacts or fevers. Denied shortness of breath or chest pain. Denied history of stroke. ER Course: BP 206/128, HR 76, RR 21, T 97.8, spO2 95% RA WBc 13.1 Hgb 16.3 Hct 50.1, Plt 469 Na 142, K 3.8, Chloride 105, BUN 15, Cr 1.2, GFR >60, Glucose 110, A1c 5.6 TSH 1.96 Lipid: Cholesterol 234, Triglycerides 100, LDL 131, HDL 83 Utox: positive for meth CT head : negative CTA Head/Neck: No cerebral Large vesel arterila Occlusion or thrombosis Tele neuro consulted: no thrombolytics >LKW 4.5 hr NIHSS 5 PMH: HTN (medication non adherent) Psoraiasis Past Surgical History: Denied surgical history Past Family History: Unsure Home Medication: none Social History: Denied Alcohol Use Substance Use Disorder, drug of choice meth (per patient has been abstient for 6 years, but test positive during admission and took a pill form his brother 10 Pack Year (10 years smoker, 1 pack per day) Allergies: None Neurology consulted given concern for stroke. cc:: cc: Clarice Khanna DO Review of Systems Review of Systems Narrative Review of Systems: General appearance: NO weight change, NO fatigue, NO weakness, NO fever, NO chills, NO night sweats, No cough Skin: NO rash, NO itching, NO sores, NO moles HEENT: NO Trauma, NO nausea, NO vomiting, NO visual changes, NO blurry vision, NO double vision, NO tinnitus, NO vertigo, NO ear discharge, NO rhinorrhea, NO stuffiness, NO sneezing, NO allergy, NO epistaxis. NO Hoarseness, NO sore throat, NO swollen neck. Cardiac: NO Palpitations, NO dyspnea on exertion, NO orthopnea, NO paroxysmal nocturnal dyspnea, NO edema Respiratory: NO Shortness of Breath, NO Wheezing, NO Cough, NO Sputum, NO hemoptysis GI:NO appetite, NO nausea, NO vomiting, NO dysphagia, NO changes in bowel frequency, NO stool color, NO diarrhea, NO constipation, NO hemetemesis, NO hemorrhoids, NO melena, NO hematechezia, NO abdominal pain, NO jaundice Renal: NO frequency, NO hesitancy, NO urgency, NO hematuria, NO nocturia, NO incontinence MSK: NO muscle weakness, NO gout, NO arthritis, NO muscle stiffness Neuro: NO headaches, NO tremors, YES weakness, YES slurred speech, Floaters, NO paralysis, NO seizures, NO loss of consciousness, NO numbness. Hem: NO anemia, NO easy bruising/bleeding, NO petechiae, NO purpura Endo: NO heat/cold intolerance, NO excessive sweating, NO polyuria, NO polydipsia, NO polyphagia, NO thyroid problems, NO diabetes Pysch: NO mood, NO anxiety, NO depression Exam Vital Signs Temp Pulse Resp BP Pulse Ox O2 Del Method 97.8 F 54 L 16 154/98 H 95 Room Air 04/03/25 10:02 04/03/25 12:00 04/03/25 12:00 04/03/25 12:00 04/03/25 12:04/03/25 12:00 Narrative Exam General Appearance: Alert & Oriented X3, well-nourished male who is lying in bed in no acute distress. erythema noted on left lower extremtiy, not warm to touch HEENT: Skull symmetrical and atraumatic. Conjunctivae pink and moist. Pupils equal, round, reactive to light and accommodation (PERRL). External ear without lesion or discharge. Straight, nares patient, mucosa pink, no discharge. Cardio: Normal Rate and Rhythm with S1 and S2 heart sounds. No murmurs or extra heart sounds auscultated. No bruits on carotid auscultation. No peripheral edema or cyanosis. Lungs: Symmetric with good expansion. Chest and back non-tender. Breath sounds vesicular without crackles, wheezing or rhonchi Abdomen: Non-tender, Non-distended, Normal Reactive Bowel Sounds Neuro: Alert, cooperative, oriented to person, place, and time. Speech clear. CN grossly intact. Upper motor strength 5/5 and Lower motor strength 5/5. Sensation intact. Results Labs 04/04/25 05:28 04/04/25 05:28 Labs: Short CBC 04/03/25 Range/Units 06:32 WBC 13.1 H (3.8-10.6) Thou/mm3 Hgb 16.3 H (13.5-16.0) g/dL Hct 50.1 (41.0-53.0) % Plt Count 469 H (140-440) Thou/mm3 BMP 04/03/25 06:32 Sodium 142 Potassium 3.8 Chloride 105 Carbon Dioxide 27.9 BUN 15 Creatinine 1.2 Glucose 110 H Calcium 10.4 Cardiac Enzymes 04/03/25 Range/Units 06:32 Troponin I 0.021 (0.0-0.045) ng/mL Liver Function 04/03/25 Range/Units 06:32 Total Bilirubin 0.4 (0.3-1.2) mg/dL AST 19 (0-34) U/L ALT 13 (10-49) U/L Alkaline Phosphatase 136 H (46-116) U/L Albumin 4.8 (3.5-5.0) gm/dL Urine 04/03/25 Range/Units 08:20 Urine Color Lt-Yellow (Lt Yel-Yel) Urine Clarity Clear (Clear/Hazy) Urine pH 7.0 (5.0-7.0) Ur Specific [place] 1.015 (1.001-1.035) Urine Protein Negative (Neg - Trace) Urine Glucose (UA) Negative (Negative) Quality Measures Quality Measures stroke Suspected type of Stroke: Acute Ischemic Last known well (date): 04/02/25 Last known well (time): 14:45 Tenecteplase given: Reason(s) Tenecteplase not given: Outside the time window not given Rehab services: PT evaluation ordered and Speech Language Pathology eval ordered VTE Prophylaxis: pharmaceutical Antithrombotic by day 2:: ordered Statin ordered: <75 y/o high intensity dose Anticoagulation ordered for A-fib or flutter (current or hx): not indicated Medications Home Medications and Allergies Allergies Allergy/AdvReac Type Severity Reaction Status Date / Time No Known Allergies Allergy Unverified 04/03/25 15:18 Visit Medications Acetaminophen (Acetaminophen 325 Mg Tablet) 650 mg PO Q6H PRN PRN Reason: Fever >101.5 Stop: 05/03/25 08:31 Acetaminophen (Acetaminophen 325 Mg Tablet) 650 mg PO Q6H PRN PRN Reason: PAIN SCALE 1-3 (mild Stop: 05/03/25 08:31 Atorvastatin Calcium (Atorvastatin Calcium 20 Mg Tablet) 80 mg PO HS YAMILETH Stop: 05/03/25 08:44 Last Admin: 04/03/25 09:28 Dose: Not Given Clopidogrel Bisulfate (Clopidogrel Bisulfate 75 Mg Tablet) 75 mg PO DAILY YAMILETH Stop: 05/03/25 08:59 Last Admin: 04/03/25 09:28 Dose: Not Given Enoxaparin Sodium (Enoxaparin Sod Inj 40 Mg/0.4 Ml Syringe) 40 mg SC QDAY YAMILETH Stop: 04/17/25 08:59 Last Admin: 04/03/25 09:31 Dose: 40 mg Sodium Chloride (Ns) 1,000 mls @ 60 mls/hr IV Q10H YAMILETH Stop: 05/03/25 06:29 Last Admin: 04/03/25 07:13 Dose: 60 mls/hr Ondansetron HCl (Ondansetron Inj 2 Mg/Ml Inj 2 Ml) 4 mg IVP Q6H PRN; Protocol PRN Reason: NAUSEA OR VOMITING Stop: 05/03/25 08:31 Discontinued Medications Aspirin (Aspirin 325 Mg Tablet) 325 mg PO X1 ONE Stop: 04/03/25 07:16 Last Admin: 04/03/25 07:55 Dose: 325 mg Aspirin (Aspirin Ec 81 Mg Tabec) 81 mg PO X1 ONE Stop: 04/03/25 08:37 Last Admin: 04/03/25 09:28 Dose: Not Given Atorvastatin Calcium (Atorvastatin Calcium 20 Mg Tablet) 40 mg PO HS YAMILETH Stop: 05/03/25 20:59 Clopidogrel Bisulfate (Clopidogrel Bisulfate 75 Mg Tablet) 150 mg PO X1 ONE Stop: 04/03/25 07:16 Last Admin: 04/03/25 07:56 Dose: 150 mg Labetalol HCl (Labetalol Inj 5 Mg/Ml Vial 20 Ml) 10 mg IVP X1 ONE Stop: 04/03/25 08:38 Last Admin: 04/03/25 09:25 Dose: 10 mg Nicotine (Nicotine Patch 21 Mg/24 Hr Patch.Td24) 21 mg TOP X1 ONE Stop: 04/03/25 12:38 Assessment & Plan Plan Patient is a 49-year-old male with a past medical history of hypertension medication not adherent and history of psoriasis who was admitted for dsyarthic speech and stroke work up. #CVA, Acute infarct of right basal ganglia including caudate #Dysarthic Speech #Left upper and lower extremity weakness #Left Facial Droop Patient presented to the emergency room with chief complain of slurred speech and lower/upper extremity weakness. Patient CT head negative for hemorrhage and MRI noted for multiple small acute infarcts, likely secondary to uncontrolled blood pressure as patient presented with hypertensive emergency, medication non-adherent and positive for meth. Given positive for meth, avoid beta blockers and allow for permissive hypertension for the next 24 hours. Diagnostics: MRI :Multiple small acute infarcts right basal ganglia including caudate nucleus CT head: Negative for acute hemorrhage, mass effect or midline shift Head/Neck CTA: No significant neck arterial stenoses. No cerebral large vessel arterial occlusions or thromboses Lipid Panel: Cholesterol 234, Triglycerides 100, LDL 131, HDL 83 TSH 1.96 A1c 5.6 Plan: -Continue Aspirin 81 mg PO qday, Plavix 75 mg qday, and Atorvastatin 80 mg HS -Pending Echo w/ bubble study -Neuro Checks -Aspiration Precautions, Head of bed 30 degrees -Bedside swallow screen and evaluation -Euglycemia and avoid Hyperthermia -Acetaminophen PRN -NPO -Hydralazine IV Q6HR PRN, give if SBP >220 or DBP >110, allow for permissive HTN -avoid beta blockers given meth use. -PT/Speech #Hypertensive Emergency #Hypertesion #Leukocytosis #Thrombocytosis #Erythrocytosis #substance use disorder, meth #active smoker, 10 year pack history - The patient's plan was discussed with attending Dr. Jose Negron MD PGY2 Internal Medicine Attending Provider Attestation/Addendum I virtually have seen the patient with FaceTime and agreed with the residents findings, assessment and plan of care. Impression : Acute ischemic CVA: Presenting with left hemiparesis and slurred speech Symptoms resolving with exception of mild residual left facial weakness of upper motor neuron type Methamphetamine abuse Hypertension Plan/recommendations continue with aspirin, Plavix and statin Follow-up with rest of the workup Advised strongly about the importance of cessation of methamphetamine usage to prevent recurrent ischemic event/bleed.
[2025-04-03] MEDS: NICOTINE PATCH 21 MG/24 HR PATCH.TD24 TOP (15:52)
[2025-04-03] MEDS: ATORVASTATIN CALCIUM 20 MG TABLET 80 MG PO (20:39)
[2025-04-04] VITALS (8 sets, daily range): BP systolic 156–182; BP diastolic 97–108; PULSE 64–94; RESP 12–21; TEMP 36.1–36.7; O2SAT 95–98
[2025-04-04 06:13] LABS: Basophils # (Auto) 0.1 Thou/mm3 (0.0-0.2); Basophils % (Auto) 1 % (0-2.5); Eosinophils # (Auto) 0.3 Thou/mm3 (0.0-0.5); Eosinophils % (Auto) 3 % (0-10); Hematocrit 44.9 % (41.0-53.0); Hemoglobin 14.7 g/dL (13.5-16.0); Immature Granulocytes Auto 0.05 Thou/mm3 (0.00-0.00); Lymphocytes # (Auto) 2.3 Thou/mm3 (1.0-4.8); Lymphocytes % (Auto) 19 % (10-50); Mean Corpuscular HGB Conc 32.7 g/dl (31.0-37.0); Mean Corpuscular Hemoglobin 30.7 pg (25.0-35.0); Mean Corpuscular Volume 94 fL (80-100); Monocytes # (Auto) 0.9 Thou/mm3 (0.0-0.8); Monocytes % (Auto) 7 % (0-12); Neutrophils # (Auto) 8.8 Thou/mm3 (1.8-7.7); Neutrophils % (Auto) 71 % (37-80); Nucleated Red Blood Cell # 0.00 Thou/mm3 (0.00-0.00); Nucleated Red Blood Cell % 0 /100 WBC (0); Platelet Count 438 Thou/mm3 (140-440); RDW Standard Deviation 47.8 fL (35.1-43.9); Red Blood Count 4.79 Miln/mm3 (4.50-5.90); White Blood Count 12.4 Thou/mm3 (3.8-10.6)
[2025-04-04 06:40] LABS: Alanine Aminotransferase 10 U/L (10-49); Albumin, Serum 3.9 gm/dL (3.5-5.0); Albumin/Globulin Ratio 1.7 (1.2-2.2); Alkaline Phosphatase 115 U/L (46-116); Anion Gap 7 (7-16); Aspartate Amino Transferase 18 U/L (0-34); BUN/Creatinine Ratio 12 Ratio (12-20); Bilirubin,Total 0.4 mg/dL (0.3-1.2); Blood Urea Nitrogen 12 mg/dL (9-23); Calcium 8.9 mg/dL (8.3-10.6); Calcium (Corrected) 9.0 mg/dL (8.5-10.1); Carbon Dioxide 27.2 mMol/L (20.0-31.0); Chloride 109 mMol/L (98-107); Creatinine (Component) 1.0 mg/dL (0.6-1.3); Estimated Creatinine Clearance 105.7 mL/min (>60); Globulin 2.3 gm/dL (2.3-3.5); Glucose 92 mg/dL (74-106); Magnesium 1.8 mg/dL (1.6-2.6); Osmolality,Calculated 284 (275-295); Phosphorous 1.8 mg/dL (2.4-5.1); Potassium 3.9 mMol/L (3.4-5.1); Sodium 143 mMol/L (136-145); Total Protein 6.2 gm/dL (5.7-8.2); eGFR > 60 See Note
--- NOTE | 2025-04-04 07:24 | ESPR_ITS ---
<Statement entered by Rahel Garcia MD - 04/04/25 17:39> Mr. Ching is a 49-year-old male with past medical history significant for uncontrolled hypertension who presented to the ED initially with left lower facial droop and dysarthria and admitted for stroke workup. Patient seen and examined at bedside. No acute overnight events reported. MRI found multiple small acute infarcts of right basal ganglia including caudate nucleus. Patient's blood pressure after 24 hours has been around 160s over 90s. Patient will continue to be on dual antiplatelet therapy for 21 days, and then continue with aspirin daily and atorvastatin. Will continue with p.o. lisinopril 20 mg and IV hydralazine as needed for systolic blood pressure greater than 180, diastolic blood pressure greater than 105; will consider increasing lisinopril dose if blood pressure continues to be elevated. Pending TTE with bubble study and PT recommended acute rehab to regain further strength and functional activity tolerance. Anticipate discharge in 24 hours. I discussed with and supervised the actuarial intern physician who took care of this patient. I personally saw and examined the patient and discussed the assessment and plan with the entire medicine team, including my attending Dr. Khanna, I agree with most of the assessment and plan as documented below Rahel Garcia M.D. PGY-2 Disclaimer: Despite multiple revisions, due to the dictation software being used, the document bellow may not be free of grammatical errors including phonetic/typographic errors. However, this does not deter from our commitment to providing health care in the patient's best interest in mind. Documentation for date of: 04/04/25 Subjective Subjective Interval history: NAEO. VSS 171/98 this AM. Patient has slight improvement of dysarthria. Continues to have left lower facial droop. Denies new symptoms. Counseled patient on benefits of reading out loud to improve speech. Started lisinopril 20 mg PO daily for BP control. Exam Vital Signs Temp Pulse Resp BP Pulse Ox O2 Del Method 97.0 F 68 12 171/98 H 97 Room Air 04/04/25 04:00 04/04/25 04:00 04/04/25 04:00 04/04/25 04:00 04/04/25 04:00 04/04/25 04:00 Narrative Exam General: No acute distress, well nourished Eye: PERRL, EOMI, normal conjunctiva, no scleral icterus HENT: Normocephalic, atraumatic, hearing intact to conversation at normal volume, moist oral mucosa Neck: Supple, non-tender, no JVD, no lymphadenopathy Lungs: CTAB, Non-labored respirations, symmetric chest rise Heart: Peripheral pulses intact bilaterally, S1 and S2 present, no MRG Abdomen: Soft, non-tender, non-distended Musculoskeletal: Normal range of motion and strength Skin: Skin is warm, dry, no rashes or lesions. Psychiatric: Cooperative, appropriate mood and affect Neurologic: Mental status: Orientation: Oriented to person, place, time, and situation Communication: Patient is cooperative and can follow simple instructions Language: Slurred speech (slightly improved from yesterda), normal rate and volume, comprehension intact, naming intact, repetition intact Cranial nerves: CN II: Visual calero intact CN III: Pupils equal, round, and reactive to light CN III, IV, : No gaze deviation, no nystagmus Horizontal pursuit: intact Vertical pursuit: intact Ptosis: none CN V: Facial sensation to light touch intact at the forehead, cheeks, and jaw line L>R (more dull sensation to touch in V1, V2, V3 on the right, improved from previous exam) CN VII: Right lower facial droop (slight) CN VIII: Able to hear and respond to conversation at normal volume, intact to finger rub CN IX, X: Palate elevation symmetric, uvula midline CN XI: Head turn and shoulder shrug strong, symmetric bilaterally CN XII: Normal tongue protrusion without deviation, no fasciculations Motor: Normal bulk and tone No atrophy No abnormal movements or fasciculations Muscle strength: Shoulder abduction: R 5/5 L 5/5 Elbow flexion: R 5/5 L 5/5 Elbow extension: R 5/5 L 5/5 Hip flexion: R 5/5 L 5/5 Hip extension: R 5/5 L 5/5 Knee flexion: R 5/5 L 5/5 Knee extension: R 5/5 L 5/5 Sensory: RUE: Light touch intact LUE: Light touch intact RLE: Light touch intact LLE: Light touch intact No clonus Plantar reflex downgoing bilaterally Cerebellum: RUE: No dysmetria (finger to nose) LUE: No dysmetria (finger to nose) Objective Labs 04/05/25 04:56 04/05/25 04:56 Labs: Laboratory Results - last 24 hr 04/03/25 04/03/25 04/04/25 06:32 08:20 05:28 WBC 12.4 H RBC 4.79 Hgb 14.7 Hct 44.9 MCV 94 MCH 30.7 MCHC 32.7 RDW Std Deviation 47.8 H Plt Count 438 D Neut % (Auto) 71 Lymph % (Auto) 19 [place] % (Auto) 7 Eos % (Auto) 3 Baso % (Auto) 1 Neut # (Auto) 8.8 H Lymph # (Auto) 2.3 [place] # (Auto) 0.9 H Eos # (Auto) 0.3 Baso # (Auto) 0.1 Immature Gran # (Auto) 0.05 H Absolute Nucleated RBC 0.00 Immature Gran % 0 Nucleated RBC % 0 Sodium 143 Potassium 3.9 Chloride 109 H Carbon Dioxide 27.2 Anion Gap 7 BUN 12 Creatinine 1.0 Estim Creat Clear Calc 105.7 eGFR > 60 BUN/Creatinine Ratio [address] Glu mg/dL 114 Hemoglobin A1c 5.6 Calculated Osmolality 284 Calcium 8.9 D Corrected Calcium 9.0 Phosphorus 1.8 L Magnesium 1.8 Total Bilirubin 0.4 AST 18 ALT 10 Alkaline Phosphatase 115 D B-Natriuretic Peptide 56 Total Protein 6.2 Albumin 3.9 D Globulin 2.3 Albumin/Globulin Ratio 1.7 Triglycerides 100 Cholesterol 234 H LDL Cholesterol, Calc 131 H HDL Cholesterol 83 H Cholesterol/HDL Ratio 2.8 L TSH 1.96 Ur Collection Type Catheter Urine Color Lt-Yellow Urine Clarity Clear Urine pH 7.0 Ur Specific [place] 1.015 Urine Protein Negative Urine Glucose (UA) Negative Urine Ketones Negative Urine Blood Negative Urine Nitrite Negative Urine Bilirubin Negative Urine Urobilinogen (Auto) Negative Ur Leukocyte Esterase Negative Urine RBC 2 Urine WBC 1 Ur Squamous Epith Cells 0 Urine Bacteria None Urine Opiates Screen Negative Urine Fentanyl Screen Negative Ur Barbiturates Screen Negative U Amphetamin/Meth Scrn Positive A U Benzodiazepines Scrn Negative U Cocaine Metab Screen Negative U Marijuana (THC) Screen Negative Quality Measures Quality Measures stroke Suspected type of Stroke: Acute Ischemic Last known well (date): 04/02/25 Last known well (time): 14:45 Tenecteplase given: Reason(s) Tenecteplase not given: Outside the time window not given Rehab services: PT evaluation ordered VTE Prophylaxis: pharmaceutical Antithrombotic by day 2:: not indicated (describe) Statin ordered: <75 y/o high intensity dose Anticoagulation ordered for A-fib or flutter (current or hx): not indicated Assessment & Plan Assessment Current Active Medications: Generic Name Dose Route Start Last Admin Trade Name Freq PRN Reason Stop Dose Admin Acetaminophen 650 mg 04/03/25 08:32 Acetaminophen 325 Mg Tablet PO 05/03/25 08:31 Q6H PRN Fever >101.5 Acetaminophen 650 mg 04/03/25 08:32 Acetaminophen 325 Mg Tablet PO 05/03/25 08:31 Q6H PRN PAIN SCALE 1-3 (mild Aspirin 81 mg 04/04/25 09:00 Aspirin Ec 81 Mg Tabec PO 05/04/25 08:59 QDAY YAMILETH Atorvastatin Calcium 80 mg 04/03/25 08:45 04/03/25 20:39 Atorvastatin Calcium 20 Mg Tablet PO 05/03/25 08:44 80 mg HS YAIMLETH Administration Clopidogrel Bisulfate 75 mg 04/03/25 09:00 04/03/25 09:28 Clopidogrel Bisulfate 75 Mg Tablet PO 05/03/25 08:59 Not Given DAILY YAMILETH Enoxaparin Sodium 40 mg 04/03/25 09:00 04/03/25 09:31 Enoxaparin Sod Inj 40 Mg/0.4 Ml Syringe SC 04/17/25 08:59 40 mg QDAY YAMILETH Administration Sodium Chloride 1,000 mls @ 60 mls/hr 04/03/25 06:30 04/03/25 17:42 Ns IV 05/03/25 06:29 60 mls/hr Q10H YAMILETH Administration Ondansetron HCl 4 mg 04/03/25 08:32 Ondansetron Inj 2 Mg/Ml Inj 2 Ml IVP 05/03/25 08:31 Q6H PRN NAUSEA OR VOMITING Protocol Sennosides 1 tab 04/03/25 15:15 Senna/Docusate Sod 1 Tab Tablet PO 05/03/25 15:14 DAILY PRN constipation Protocol Plan Mr. Ching is a 49 y/o male with PMH of HTN who presented to the ED with dysarthria, left lower facial droop, and decreased sensation of left upper and lower face. Admitted for stroke w/u. UDS + methamphetamine, BP 206/134. # Acute ischemic infarct of right basal ganglia Not a candidate for tPA or thrombectomy given outside of tPA window, no LVO. Hx stroke/TIA: none Hx afib: none Smoking hx: 1PPD x at least 10 years Initial symptoms: dysarthria, left facial droop, left UE and LE weakness, dizziness, headache, mild loss of balance. 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 Continues to have dysarthria, left lower facial droop, decrease of sensation left face in V1, V2, V3 distribution LKAW: 04/02 at 14:30 Initial NIHSS: 4 (Left arm motor drift, Left leg motor drift, less sharp/more dull sensation, slurring but can be understood) Inital BP: 206/134 EKG: NSR HR 75, QTc 457 Initial glucose: 110 UDS: +methamphetamine EtOH: <3 A1C: 5.6 Lipids: Triglyceride 100, Cholesterol 234 high, LDL 131 high, HDL 83 TSH: 1.96 WNL Troponin: negative x1 CT head w/o: Negative for acute hemorrhage, mass effect, midline shift CTA head/neck w/: Negative for LVO, neck arterial stenoses MRI/MRA w/ and w/o: Multiple small acute infarcts of the right basal ganglia including caudate nucleus TTE: pending Meds given: Loaded with Aspirin and Plavix in ED. Given 1L NS at 60 mL/hr in ED. Labetalol 10 mg IV x1 given before UDS resulted. DDX: Large vessel atherosclerosis (thrombus), cardioembolic, small vessel (lacunar) disease, hypercoagulable state, arterial dissection, vasculitis, substance use Most likely small vessel (lacunar) disease 2/2 hypertension/hypertensive emergency Plan: - NIHSS <=5 (minor) --> DAPT x 21 days followed by single antiplatelet therapy - ASA 81 mg daily - Plavix 75 mg daily x 21 days - Atorvastatin 80 mg daily - Lisinopril 20 mg PO daily - Pending TTE w/ bubble study - PT consulted - F/U outpatient neurology - Dysphagia 3 diet/regular liquids with precautions - Avoid beta blockers given meth use, as they can lead to unopposed alpha- adrenergic stimulation which can worsen vasospasms and cause reflex tachycardia #Hypertensive emergency - resolved #Hypertension Home med: Lisinopril 10 mg PO daily, reported by pt, [facility] confirmed that pt has not filled Rx since 2022 Initial BP 206/134, increased during evaluation at bedside, given labetalol 10 mg IV x1 Evidence of end-organ damage with possible stroke/TIA/focal neuro deficits Trop negative, BNP negative Plan: - CTM with telemetry - Lisinopril 20 mg PO daily #Leukocytosis - resolved Most likely 2/2 hypertensive emergency / TIA / stroke UA negative Plan: - CTM with daily CBC #Thrombocytosis - resolved Most likely reactive i/s/o hypertensive emergency / TIA / stroke Plan: - CTM with daily CBC Checklist Dispo: Pending TTE, PT Diet: Cardiac, Dysphagia 3 diet/regular liquids with precautions Bowel Reg: Doc-senna PRN VTE ppx: Lovenox 40 mg subQ daily GI ppx: none Pain mgmt: Tylenol PRN Code status: full Plan discussed with Dr. Avel Garcia and Clemencia Neal MD PGY1 Attending Provider Attestation/Addendum IClarice DO, attest that I was physically present for the curiel portions of the service and evaluated the patient with the resident and I reviewed and discussed the case with the resident and agree with the resident's findings and plans of care as documented above Patient seen and evaluated this AM. Patient has mild left facial droop and some difficulty with articulating speech, but otherwise improved. Gross sensation is intact b/l and MS in 4+/5 in all four extremities. MRI showed evdience of multiple small infarcts in right basal ganglia. Pending echo and PT at this time. Patient was able to pass swallow study today and diet has been advanced. Continue with DAPT. Anticipate DC within next 24-48h.
--- NOTE | 2025-04-04 08:49 | PC.SS ---
Patient Catalina Ching is a 49 Year old male admitted for Stroke R/O. SS met with patient at bedside to discuss discharge plan and verify demographic information. Patient reports he lives at home with his family. Patient has listed his Cornell Ching a his surrogate decision maker, [phone]. Prior to patient being admitted he did not utilize any source of DME to assist with ambulation. Patient is able to complete all ADL's independently. Pharmacy of choice is [facility]. PCP is Steven Green. At time of discharge patient will return home. Family radha provide transportation. DM: , Cornell Ching [phone] Discharge plan Home PCP: Steven Green-Has not seen his PCP for about 1 Year ago.
[2025-04-04] MEDS: CLOPIDOGREL BISULFATE 75 MG TABLET PO (09:14)
[2025-04-04] MEDS: ASPIRIN EC 81 MG TABEC PO (09:14)
[2025-04-04] MEDS: ENOXAPARIN SOD INJ 40 MG/0.4 ML SYRINGE SC (09:14)
[2025-04-04] MEDS: NAPH,KPH MBDB 1 PACKET (1.5 GM) PO (09:15)
[2025-04-04] MEDS: SODIUM CHLORIDE 0.9% 1000 ML 1,000 ML 60 ML IV (09:20)
--- NOTE | 2025-04-04 09:56 | PC.SS ---
SS follow up note; Patient is pending an echo, possible discharge home tomorrow.
--- NOTE | 2025-04-04 10:08 | ESPR_ITS ---
Documentation for date of: 04/04/25 Subjective Subjective Interval history: Patient is a 49-year-old male with a past medical history of hypertension medication not adherent, history of psoriasis, substance use disorder who was admitted for left sided weakness and dysarthic speech who subsequently found positive for stroke. 04/04/2025: Patient denied overnight events. Patient denied dizziness or headache. Denied blurry vision. Improved dysarthric speech. Patient continues to be alert and orientated x3. PT-->recommending SNF. Pending echo. Exam Vital Signs Temp Pulse Resp BP Pulse Ox O2 Del Method 97.3 F 76 20 170/103 H 98 Room Air 04/04/25 08:00 04/04/25 08:00 04/04/25 08:00 04/04/25 08:00 04/04/25 08:00 04/04/25 08:00 Narrative Exam General Appearance: Alert & Oriented X3, well-nourished male who is lying in bed in no acute distress. erythema noted on left lower extremtiy, not warm to touch HEENT: Skull symmetrical and atraumatic. Conjunctivae pink and moist. Pupils equal, round, reactive to light and accommodation (PERRL). External ear without lesion or discharge. Straight, nares patient, mucosa pink, no discharge. Cardio: Normal Rate and Rhythm with S1 and S2 heart sounds. No murmurs or extra heart sounds auscultated. No bruits on carotid auscultation. No peripheral edema or cyanosis. Lungs: Symmetric with good expansion. Chest and back non-tender. Breath sounds vesicular without crackles, wheezing or rhonchi Abdomen: Non-tender, Non-distended, Normal Reactive Bowel Sounds Neuro: Alert, cooperative, oriented to person, place, and time. Improved dysarthric speech. CN grossly intact. Upper motor strength 5/5 and Lower motor strength 5/5. Sensation intact. Objective Labs 04/05/25 04:56 04/05/25 04:56 Labs: Laboratory Results - last 24 hr 04/03/25 04/04/25 06:32 05:28 WBC 12.4 H RBC 4.79 Hgb 14.7 Hct 44.9 MCV 94 MCH 30.7 MCHC 32.7 RDW Std Deviation 47.8 H Plt Count 438 D Neut % (Auto) 71 Lymph % (Auto) 19 [place] % (Auto) 7 Eos % (Auto) 3 Baso % (Auto) 1 Neut # (Auto) 8.8 H Lymph # (Auto) 2.3 [place] # (Auto) 0.9 H Eos # (Auto) 0.3 Baso # (Auto) 0.1 Immature Gran # (Auto) 0.05 H Absolute Nucleated RBC 0.00 Immature Gran % 0 Nucleated RBC % 0 Sodium 143 Potassium 3.9 Chloride 109 H Carbon Dioxide 27.2 Anion Gap 7 BUN 12 Creatinine 1.0 Estim Creat Clear Calc 105.7 eGFR > 60 BUN/Creatinine Ratio [address] Glu mg/dL 114 Hemoglobin A1c 5.6 Calculated Osmolality 284 Calcium 8.9 D Corrected Calcium 9.0 Phosphorus 1.8 L Magnesium 1.8 Total Bilirubin 0.4 AST 18 ALT 10 Alkaline Phosphatase 115 D Total Protein 6.2 Albumin 3.9 D Globulin 2.3 Albumin/Globulin Ratio 1.7 Quality Measures Quality Measures stroke Suspected type of Stroke: Acute Ischemic Last known well (date): 04/02/25 Last known well (time): 14:45 Tenecteplase given: Reason(s) Tenecteplase not given: Outside the time window not given Rehab services: PT evaluation ordered and Speech Language Pathology eval ordered VTE Prophylaxis: pharmaceutical Antithrombotic by day 2:: ordered Statin ordered: <75 y/o high intensity dose Anticoagulation ordered for A-fib or flutter (current or hx): not indicated Assessment & Plan Assessment Current Active Medications: Generic Name Dose Route Start Last Admin Trade Name Freq PRN Reason Stop Dose Admin Acetaminophen 650 mg 04/03/25 08:32 Acetaminophen 325 Mg Tablet PO 05/03/25 08:31 Q6H PRN Fever >101.5 Acetaminophen 650 mg 04/03/25 08:32 Acetaminophen 325 Mg Tablet PO 05/03/25 08:31 Q6H PRN PAIN SCALE 1-3 (mild Aspirin 81 mg 04/04/25 09:00 04/04/25 09:14 Aspirin Ec 81 Mg Tabec PO 05/04/25 08:59 81 mg QDAY YAMILETH Administration Atorvastatin Calcium 80 mg 04/03/25 08:45 04/03/25 20:39 Atorvastatin Calcium 20 Mg Tablet PO 05/03/25 08:44 80 mg HS YAMILETH Administration Clopidogrel Bisulfate 75 mg 04/03/25 09:00 04/04/25 09:14 Clopidogrel Bisulfate 75 Mg Tablet PO 05/03/25 08:59 75 mg DAILY YAMILETH Administration Enoxaparin Sodium 40 mg 04/03/25 09:00 04/04/25 09:14 Enoxaparin Sod Inj 40 Mg/0.4 Ml Syringe SC 04/17/25 08:59 40 mg QDAY YAMILETH Administration Lisinopril 20 mg 04/04/25 13:00 Lisinopril 20 Mg Tablet PO 05/04/25 12:59 QDAY YAMILETH Ondansetron HCl 4 mg 04/03/25 08:32 Ondansetron Inj 2 Mg/Ml Inj 2 Ml IVP 05/03/25 08:31 Q6H PRN NAUSEA OR VOMITING Protocol Sennosides 1 tab 04/03/25 15:15 Senna/Docusate Sod 1 Tab Tablet PO 05/03/25 15:14 DAILY PRN constipation Protocol Plan Patient is a 49-year-old male with a past medical history of hypertension medication not adherent and history of psoriasis who was admitted for dsyarthic speech and stroke work up. #CVA, Acute infarct of right basal ganglia including caudate #Dysarthic Speech #Left upper and lower extremity weakness #Left Facial Droop Patient presented to the emergency room with chief complain of slurred speech and lower/upper extremity weakness. Patient CT head negative for hemorrhage and MRI noted for multiple small acute infarcts, likely secondary to uncontrolled blood pressure as patient presented with hypertensive emergency, medication non- adherent and positive for meth. Given positive for meth, avoid beta blockers and allow for permissive hypertension for the next 24 hours. Diagnostics: MRI :Multiple small acute infarcts right basal ganglia including caudate nucleus CT head: Negative for acute hemorrhage, mass effect or midline shift Head/Neck CTA: No significant neck arterial stenoses. No cerebral large vessel arterial occlusions or thromboses Lipid Panel: Cholesterol 234, Triglycerides 100, LDL 131, HDL 83 TSH 1.96 A1c 5.6 Plan: -Continue Aspirin 81 mg PO qday, Plavix 75 mg qday, and Atorvastatin 80 mg HS -Pending Echo w/ bubble study -Neuro Checks -Aspiration Precautions, Head of bed 30 degrees -Euglycemia and avoid Hyperthermia -PT/Speech ordered--->SNF recommended #Hypertensive Emergency, resolved. #Hypertesion #Leukocytosis, resolved. #Thrombocytosis, resolved. #Erythrocytosis #substance use disorder, meth #active smoker, 10 year pack history - The patient's plan was discussed with attending Dr. Jose Negron MD PGY2 Internal Medicine Attending Provider Attestation/Addendum I personally have seen and examined the patient at the bedside and I agreed with resident's findings, assessment and plan of care. Impression: Acute ischemic CVA No significant focal neurological deficit Follow-up with echocardiogram, continue with aspirin, Plavix and statin and aggressive blood pressure control
--- NOTE | 2025-04-04 14:22 | PC.SS ---
Addendum entered by Cleopatra Sahu 04/04/25 15:20: SS follow up note; Patient did not get accepted to any Acute Reh[facility]. SS contacted Yunior and he informed SS patient could discharge home with HH for PT and Speech. SS contacted patient's PCP and scheduled patient a follow up appointment for Friday 04/06 @ 8:45AM with Dr. Aburto at [facility]. SS made patient aware. SS contacted transfer nurse, Jojo and updated her with information. SS contacted Dr. Khanna to input HH order. Original Note: SS follow up note; SS was notifed during rounding that patient will need Acute Rehab. SS contacted Yunior from PT that SS was awaiting PT note. SS sent Inquiry through [employer] platform to Acute Re[facility]. SS will present choices to patient once available.
--- NOTE | 2025-04-04 14:56 | PC.PT ---
Patient is safe to ambulate to the bathroom xI. Patient is safe to ambulate in the halls with the IV pole and 1 staff assist. RN made aware.
[2025-04-04] MEDS: ATORVASTATIN CALCIUM 20 MG TABLET 80 MG PO (21:43)
[2025-04-05] VITALS (7 sets, daily range): BP systolic 134–155; BP diastolic 77–104; PULSE 53–91; RESP 16–22; TEMP 36.2–36.7; O2SAT 95–98; BMI 28.4
[2025-04-05 05:58] LABS: Basophils # (Auto) 0.1 Thou/mm3 (0.0-0.2); Basophils % (Auto) 1 % (0-2.5); Eosinophils # (Auto) 0.3 Thou/mm3 (0.0-0.5); Eosinophils % (Auto) 2 % (0-10); Hematocrit 44.6 % (41.0-53.0); Hemoglobin 14.5 g/dL (13.5-16.0); Immature Granulocytes Auto 0.04 Thou/mm3 (0.00-0.00); Lymphocytes # (Auto) 2.7 Thou/mm3 (1.0-4.8); Lymphocytes % (Auto) 22 % (10-50); Mean Corpuscular HGB Conc 32.5 g/dl (31.0-37.0); Mean Corpuscular Hemoglobin 30.6 pg (25.0-35.0); Mean Corpuscular Volume 94 fL (80-100); Monocytes # (Auto) 0.8 Thou/mm3 (0.0-0.8); Monocytes % (Auto) 6 % (0-12); Neutrophils # (Auto) 8.5 Thou/mm3 (1.8-7.7); Neutrophils % (Auto) 68 % (37-80); Nucleated Red Blood Cell # 0.00 Thou/mm3 (0.00-0.00); Nucleated Red Blood Cell % 0 /100 WBC (0); Platelet Count 411 Thou/mm3 (140-440); RDW Standard Deviation 48.2 fL (35.1-43.9); Red Blood Count 4.74 Miln/mm3 (4.50-5.90); White Blood Count 12.4 Thou/mm3 (3.8-10.6)
[2025-04-05 06:48] LABS: Alanine Aminotransferase 8 U/L (10-49); Albumin, Serum 3.8 gm/dL (3.5-5.0); Albumin/Globulin Ratio 1.5 (1.2-2.2); Alkaline Phosphatase 113 U/L (46-116); Anion Gap 8 (7-16); Aspartate Amino Transferase 15 U/L (0-34); BUN/Creatinine Ratio 12 Ratio (12-20); Bilirubin,Total 0.3 mg/dL (0.3-1.2); Blood Urea Nitrogen 12 mg/dL (9-23); Calcium 9.6 mg/dL (8.3-10.6); Calcium (Corrected) 9.8 mg/dL (8.5-10.1); Carbon Dioxide 25.3 mMol/L (20.0-31.0); Chloride 108 mMol/L (98-107); Creatinine (Component) 1.0 mg/dL (0.6-1.3); Estimated Creatinine Clearance 103.7 mL/min (>60); Globulin 2.5 gm/dL (2.3-3.5); Glucose 90 mg/dL (74-106); Magnesium 1.6 mg/dL (1.6-2.6); Osmolality,Calculated 280 (275-295); Phosphorous 2.5 mg/dL (2.4-5.1); Potassium 4.0 mMol/L (3.4-5.1); Sodium 141 mMol/L (136-145); Total Protein 6.3 gm/dL (5.7-8.2); eGFR > 60 See Note
--- NOTE | 2025-04-05 07:42 | ESPR_ITS ---
<Statement entered by Wilfred Cleary MD - 04/05/25 16:52> Senior Resident Attestation: I supervised/discussed management plan with promotions intern physician Dr. Jay, and was involved in the care of this patient. I personally saw and examined the patient and discussed the assessment and plan with the entire medicine team, including my attending. I agree with the assessment and plan as documented. Patient continues to have slurred speech without significant improvement. He is pending echocardiogram today. Will continue current management and monitor patient. Patient's care was discussed with attending physician, Dr. Khanna. Wilfred Cleary MD PGY-3. Documentation for date of: 04/05/25 Subjective Subjective Interval history: NAEO. VSS. BP 130s/70 this AM. Did not need PRN hydralazine overnight. Will continue with lisinopril 20 mg PO QD. patient reports that the dysarthria continues to be frustrating, though he thinks that it is improved since on admission. He denies weakness, sensory deficit of the left face. Denies any symptoms. Exam Vital Signs Temp Pulse Resp BP Pulse Ox O2 Del Method 97.2 F 58 L 16 134/77 H 97 Room Air 04/05/25 04:00 04/05/25 04:00 04/05/25 04:00 04/05/25 04:00 04/05/25 04:00 04/05/25 04:00 Narrative Exam General: No acute distress, well nourished Eye: PERRL, EOMI, normal conjunctiva, no scleral icterus HENT: Normocephalic, atraumatic, hearing intact to conversation at normal volume, moist oral mucosa Neck: Supple, non-tender, no JVD, no lymphadenopathy Lungs: CTAB, Non-labored respirations, symmetric chest rise Heart: Peripheral pulses intact bilaterally, S1 and S2 present, no MRG Abdomen: Soft, non-tender, non-distended Musculoskeletal: Normal range of motion and strength Skin: Skin is warm, dry, no rashes or lesions. Psychiatric: Cooperative, appropriate mood and affect Neurologic: Mental status: Orientation: Oriented to person, place, time, and situation Communication: Patient is cooperative and can follow simple instructions Language: Slurred speech (slightly improved from yesterday), normal rate and volume, comprehension intact, naming intact, repetition intact Cranial nerves: CN II: Visual calero intact CN III: Pupils equal, round, and reactive to light CN III, IV, : No gaze deviation, no nystagmus Horizontal pursuit: intact Vertical pursuit: intact Ptosis: none CN V: Facial sensation to light touch intact and symmetric at the forehead, cheeks, and jaw line CN VII: Right lower facial droop (slight) CN VIII: Able to hear and respond to conversation at normal volume, intact to finger rub CN IX, X: Palate elevation symmetric, uvula midline CN XI: Head turn and shoulder shrug strong, symmetric bilaterally CN XII: Normal tongue protrusion without deviation, no fasciculations Motor: Normal bulk and tone No atrophy No abnormal movements or fasciculations Muscle strength: Shoulder abduction: R 5/5 L 5/5 Elbow flexion: R 5/5 L 5/5 Elbow extension: R 5/5 L 5/5 Hip flexion: R 5/5 L 5/5 Hip extension: R 5/5 L 5/5 Knee flexion: R 5/5 L 5/5 Knee extension: R 5/5 L 5/5 Sensory: RUE: Light touch intact LUE: Light touch intact RLE: Light touch intact LLE: Light touch intact No clonus Plantar reflex downgoing bilaterally Cerebellum: RUE: No dysmetria (finger to nose) LUE: No dysmetria (finger to nose) Objective Labs 04/05/25 04:56 04/05/25 04:56 Labs: Laboratory Results - last 24 hr 04/05/25 04:56 WBC 12.4 H RBC 4.74 Hgb 14.5 Hct 44.6 MCV 94 MCH 30.6 MCHC 32.5 RDW Std Deviation 48.2 H Plt Count 411 Neut % (Auto) 68 Lymph % (Auto) 22 [place] % (Auto) 6 Eos % (Auto) 2 Baso % (Auto) 1 Neut # (Auto) 8.5 H Lymph # (Auto) 2.7 [place] # (Auto) 0.8 Eos # (Auto) 0.3 Baso # (Auto) 0.1 Immature Gran # (Auto) 0.04 H Absolute Nucleated RBC 0.00 Immature Gran % 0 Nucleated RBC % 0 Sodium 141 Potassium 4.0 Chloride 108 H Carbon Dioxide 25.3 Anion Gap 8 BUN 12 Creatinine 1.0 Estim Creat Clear Calc 103.7 eGFR > 60 BUN/Creatinine Ratio 12 Glucose 90 Calculated Osmolality 280 Calcium 9.6 Corrected Calcium 9.8 Phosphorus 2.5 Magnesium 1.6 Total Bilirubin 0.3 AST 15 ALT 8 L Alkaline Phosphatase 113 Total Protein 6.3 Albumin 3.8 Globulin 2.5 Albumin/Globulin Ratio 1.5 Quality Measures Quality Measures stroke Suspected type of Stroke: Acute Ischemic Last known well (date): 04/02/25 Last known well (time): 14:45 Tenecteplase given: Reason(s) Tenecteplase not given: Outside the time window not given Rehab services: PT evaluation ordered and Speech Language Pathology eval ordered VTE Prophylaxis: pharmaceutical Antithrombotic by day 2:: not indicated (describe) Statin ordered: >75 y/o moderate or high intensity dose Anticoagulation ordered for A-fib or flutter (current or hx): not indicated Assessment & Plan Assessment Current Active Medications: Generic Name Dose Route Start Last Admin Trade Name Freq PRN Reason Stop Dose Admin Acetaminophen 650 mg 04/03/25 08:32 Acetaminophen 325 Mg Tablet PO 05/03/25 08:31 Q6H PRN Fever >101.5 Acetaminophen 650 mg 04/03/25 08:32 Acetaminophen 325 Mg Tablet PO 05/03/25 08:31 Q6H PRN PAIN SCALE 1-3 (mild Aspirin 81 mg 04/04/25 09:00 04/04/25 09:14 Aspirin Ec 81 Mg Tabec PO 05/04/25 08:59 81 mg QDAY YAMILETH Administration Atorvastatin Calcium 80 mg 04/03/25 08:45 04/04/25 21:43 Atorvastatin Calcium 20 Mg Tablet PO 05/03/25 08:44 80 mg HS YAMILETH Administration Clopidogrel Bisulfate 75 mg 04/03/25 09:00 04/04/25 09:14 Clopidogrel Bisulfate 75 Mg Tablet PO 05/03/25 08:59 75 mg DAILY YAMILETH Administration Enoxaparin Sodium 40 mg 04/03/25 09:00 04/04/25 09:14 Enoxaparin Sod Inj 40 Mg/0.4 Ml Syringe SC 04/17/25 08:59 40 mg QDAY YAMILETH Administration Hydralazine HCl 10 mg 04/04/25 16:27 Hydralazine Inj 20 Mg/Ml Vial IV 05/04/25 16:29 Q6H PRN sBP > 180, dBP > 105 Lisinopril 20 mg 04/04/25 13:00 04/04/25 12:22 Lisinopril 20 Mg Tablet PO 05/04/25 12:59 20 mg QDAY YAMILETH Administration Ondansetron HCl 4 mg 04/03/25 08:32 Ondansetron Inj 2 Mg/Ml Inj 2 Ml IVP 05/03/25 08:31 Q6H PRN NAUSEA OR VOMITING Protocol Sennosides 1 tab 04/03/25 15:15 Senna/Docusate Sod 1 Tab Tablet PO 05/03/25 15:14 DAILY PRN constipation Protocol Plan Mr. Ching is a 49 y/o male with PMH of HTN who presented to the ED with dysarthria, left lower facial droop, and decreased sensation of left upper and lower face. Admitted for stroke w/u. UDS + methamphetamine, initial BP 206/134. # Acute ischemic infarct of right basal ganglia Not a candidate for tPA or thrombectomy given outside of tPA window, no LVO. Hx stroke/TIA: none Hx afib: none Smoking hx: 1PPD x at least 10 years Initial symptoms: dysarthria, left facial droop, left UE and LE weakness, dizziness, headache, mild loss of balance. 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 Continues to have dysarthria, left lower facial droop, decrease of sensation left face in V1, V2, V3 distribution LKAW: 04/02 at 14:30 Initial NIHSS: 4 (Left arm motor drift, Left leg motor drift, less sharp/more dull sensation, slurring but can be understood) Inital BP: 206/134 EKG: NSR HR 75, QTc 457 Initial glucose: 110 UDS: +methamphetamine EtOH: <3 A1C: 5.6 Lipids: Triglyceride 100, Cholesterol 234 high, LDL 131 high, HDL 83 TSH: 1.96 WNL Troponin: negative x1 CT head w/o: Negative for acute hemorrhage, mass effect, midline shift CTA head/neck w/: Negative for LVO, neck arterial stenoses MRI/MRA w/ and w/o: Multiple small acute infarcts of the right basal ganglia including caudate nucleus TTE: pending Meds given: Loaded with Aspirin and Plavix in ED. Given 1L NS at 60 mL/hr in ED. Labetalol 10 mg IV x1 given before UDS resulted. DDX: Large vessel atherosclerosis (thrombus), cardioembolic, small vessel (lacunar) disease, hypercoagulable state, arterial dissection, vasculitis, substance use Most likely small vessel (lacunar) disease 2/2 hypertension/hypertensive emergency Plan: - NIHSS <=5 (minor) --> DAPT x 21 days followed by single antiplatelet therapy - ASA 81 mg daily - Plavix 75 mg daily x 21 days - Atorvastatin 80 mg daily - Lisinopril 20 mg PO daily - Pending TTE w/ bubble study - PT consulted - d/c to home with home health - F/U outpatient neurology - Dysphagia 3 diet/regular liquids with precautions - Avoid beta blockers given meth use, as they can lead to unopposed alpha- adrenergic stimulation which can worsen vasospasms and cause reflex tachycardia #Hypertensive emergency - resolved #Hypertension Home med: Lisinopril 10 mg PO daily, reported by pt, [facility] confirmed that pt has not filled Rx since 2022 Initial BP 206/134, increased during evaluation at bedside, given labetalol 10 mg IV x1 Evidence of end-organ damage with possible stroke/TIA/focal neuro deficits Trop negative, BNP negative Plan: - CTM with telemetry - Lisinopril 20 mg PO daily #Leukocytosis - resolved Most likely 2/2 hypertensive emergency / TIA / stroke UA negative Plan: - CTM with daily CBC #Thrombocytosis - resolved Most likely reactive i/s/o hypertensive emergency / TIA / stroke Plan: - CTM with daily CBC Checklist Dispo: Pending TTE Diet: Cardiac, Dysphagia 3 diet/regular liquids with precautions Bowel Reg: Doc-senna PRN VTE ppx: Lovenox 40 mg subQ daily GI ppx: none Pain mgmt: Tylenol PRN Code status: full Plan discussed with Dr. Cleary and Clemencia Neal MD PGY1 Attending Provider Attestation/Addendum Clarice Dunham, DO, attest that I was physically present for the curiel portions of the service and evaluated the patient with the resident and I reviewed and discussed the case with the resident and agree with the resident's findings and plans of care as documented above' Patient seen and evaluated this AM. No acute events overnight. Speech is much improved. He continues to have mild facial droop. Pending echocardiogram at this time.
[2025-04-05] MEDS: ASPIRIN EC 81 MG TABEC PO (08:00)
[2025-04-05] MEDS: ENOXAPARIN SOD INJ 40 MG/0.4 ML SYRINGE SC (08:01)
[2025-04-05] MEDS: CLOPIDOGREL BISULFATE 75 MG TABLET PO (08:01)
[2025-04-05] MEDS: Magnesium Sulfate 2 GM Ivpb 2 GM/50 ML BAG IV (10:12)
--- NOTE | 2025-04-05 13:25 | PC.SS ---
SS follow up note; Patient is pending an Echo. Patient will discharge home with .
--- NOTE | 2025-04-05 13:33 | PC.NURSE ---
Dr. Jay made aware of patients heart rate in the high 50's. Per Dr. Jay if heart rate drops below 55 please notify her.
--- NOTE | 2025-04-05 14:20 | PD.RESPRO ---
Documentation for date of: 04/05/25 Subjective Subjective Interval history: Patient is a 49-year-old male with a past medical history of hypertension medication not adherent, history of psoriasis, substance use disorder who was admitted for left sided weakness and dysarthic speech who subsequently found positive for stroke. 04/04/2025: Patient denied overnight events. Patient denied dizziness or headache. Denied blurry vision. Improved dysarthric speech. Patient continues to be alert and orientated x3. PT-->recommending SNF. 04/05/2025: No overnight events. 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 HH ordered. Continue Aspirin, plavix, and Atorvastatin. Patient deneid any changes . Denied any dizziness. Denied blurry vision. Patient overall feels ready to be discharge. Echo Pending. Exam Vital Signs Temp Pulse Resp BP Pulse Ox O2 Del Method 97.6 F 87 19 155/104 H 96 Room Air 04/05/25 12:00 04/05/25 12:00 04/05/25 12:00 04/05/25 12:00 04/05/25 12:00 04/05/25 12:00 Narrative Exam General Appearance: Alert & Oriented X3, well-nourished male who is lying in bed in no acute distress. erythema noted on left lower extremtiy, not warm to touch HEENT: Skull symmetrical and atraumatic. Conjunctivae pink and moist. Pupils equal, round, reactive to light and accommodation (PERRL). External ear without lesion or discharge. Straight, nares patient, mucosa pink, no discharge. Cardio: Normal Rate and Rhythm with S1 and S2 heart sounds. No murmurs or extra heart sounds auscultated. No bruits on carotid auscultation. No peripheral edema or cyanosis. Lungs: Symmetric with good expansion. Chest and back non-tender. Breath sounds vesicular without crackles, wheezing or rhonchi Abdomen: Non-tender, Non-distended, Normal Reactive Bowel Sounds Neuro: Alert, cooperative, oriented to person, place, and time. Improved dysarthric speech. CN grossly intact. Upper motor strength 5/5 and Lower motor strength 5/5. Sensation intact. Objective Labs 04/05/25 04:56 04/05/25 04:56 Labs: Laboratory Results - last 24 hr 04/05/25 04:56 WBC 12.4 H RBC 4.74 Hgb 14.5 Hct 44.6 MCV 94 MCH 30.6 MCHC 32.5 RDW Std Deviation 48.2 H Plt Count 411 Neut % (Auto) 68 Lymph % (Auto) 22 [place] % (Auto) 6 Eos % (Auto) 2 Baso % (Auto) 1 Neut # (Auto) 8.5 H Lymph # (Auto) 2.7 [place] # (Auto) 0.8 Eos # (Auto) 0.3 Baso # (Auto) 0.1 Immature Gran # (Auto) 0.04 H Absolute Nucleated RBC 0.00 Immature Gran % 0 Nucleated RBC % 0 Sodium 141 Potassium 4.0 Chloride 108 H Carbon Dioxide 25.3 Anion Gap 8 BUN 12 Creatinine 1.0 Estim Creat Clear Calc 103.7 eGFR > 60 BUN/Creatinine Ratio 12 Glucose 90 Calculated Osmolality 280 Calcium 9.6 Corrected Calcium 9.8 Phosphorus 2.5 Magnesium 1.6 Total Bilirubin 0.3 AST 15 ALT 8 L Alkaline Phosphatase 113 Total Protein 6.3 Albumin 3.8 Globulin 2.5 Albumin/Globulin Ratio 1.5 Quality Measures Quality Measures stroke Suspected type of Stroke: Acute Ischemic Last known well (date): 04/02/25 Last known well (time): 14:45 Tenecteplase given: Reason(s) Tenecteplase not given: Outside the time window not given Rehab services: PT evaluation ordered and Speech Language Pathology eval ordered VTE Prophylaxis: pharmaceutical Antithrombotic by day 2:: ordered Statin ordered: <75 y/o high intensity dose Anticoagulation ordered for A-fib or flutter (current or hx): not indicated Assessment & Plan Assessment Current Active Medications: Generic Name Dose Route Start Last Admin Trade Name Freq PRN Reason Stop Dose Admin Acetaminophen 650 mg 04/03/25 08:32 Acetaminophen 325 Mg Tablet PO 05/03/25 08:31 Q6H PRN Fever >101.5 Acetaminophen 650 mg 04/03/25 08:32 Acetaminophen 325 Mg Tablet PO 05/03/25 08:31 Q6H PRN PAIN SCALE 1-3 (mild Aspirin 81 mg 04/04/25 09:00 04/05/25 08:00 Aspirin Ec 81 Mg Tabec PO 05/04/25 08:59 81 mg QDAY YAMILETH Administration Atorvastatin Calcium 80 mg 04/03/25 08:45 04/04/25 21:43 Atorvastatin Calcium 20 Mg Tablet PO 05/03/25 08:44 80 mg HS YAMILETH Administration Clopidogrel Bisulfate 75 mg 04/03/25 09:00 04/05/25 08:01 Clopidogrel Bisulfate 75 Mg Tablet PO 05/03/25 08:59 75 mg DAILY YAMILETH Administration Enoxaparin Sodium 40 mg 04/03/25 09:00 04/05/25 08:01 Enoxaparin Sod Inj 40 Mg/0.4 Ml Syringe SC 04/17/25 08:59 40 mg QDAY YAMILETH Administration Hydralazine HCl 10 mg 04/04/25 16:27 Hydralazine Inj 20 Mg/Ml Vial IV 05/04/25 16:29 Q6H PRN sBP > 180, dBP > 105 Lisinopril 20 mg 04/04/25 13:00 04/05/25 08:00 Lisinopril 20 Mg Tablet PO 05/04/25 12:59 20 mg QDAY YAMILETH Administration Ondansetron HCl 4 mg 04/03/25 08:32 Ondansetron Inj 2 Mg/Ml Inj 2 Ml IVP 05/03/25 08:31 Q6H PRN NAUSEA OR VOMITING Protocol Sennosides 1 tab 04/03/25 15:15 Senna/Docusate Sod 1 Tab Tablet PO 05/03/25 15:14 DAILY PRN constipation Protocol Plan Patient is a 49-year-old male with a past medical history of hypertension medication not adherent and history of psoriasis who was admitted for dsyarthic speech and stroke work up. #CVA, Acute infarct of right basal ganglia including caudate #Dysarthic Speech #Left upper and lower extremity weakness #Left Facial Droop Patient presented to the emergency room with chief complain of slurred speech and lower/upper extremity weakness. Patient CT head negative for hemorrhage and MRI noted for multiple small acute infarcts, likely secondary to uncontrolled blood pressure as patient presented with hypertensive emergency, medication non-adherent and positive for meth. Given positive for meth, avoid beta blockers and allow for permissive hypertension for the next 24 hours. Diagnostics: MRI :Multiple small acute infarcts right basal ganglia including caudate nucleus CT head: Negative for acute hemorrhage, mass effect or midline shift Head/Neck CTA: No significant neck arterial stenoses. No cerebral large vessel arterial occlusions or thromboses Lipid Panel: Cholesterol 234, Triglycerides 100, LDL 131, HDL 83 TSH 1.96 A1c 5.6 Plan: -Continue Aspirin 81 mg PO qday, Plavix 75 mg qday, and Atorvastatin 80 mg HS -Pending Echo w/ bubble study -Continue to monitor BP -Neuro Checks -Aspiration Precautions, Head of bed 30 degrees -Euglycemia and avoid Hyperthermia -PT/Speech ordered--->SNF recommended #Hypertensive Emergency, resolved. #Hypertesion #Leukocytosis, resolved. #Thrombocytosis, resolved. #Erythrocytosis #substance use disorder, meth #active smoker, 10 year pack history - The patient's plan was discussed with attending Dr. Jose Negron MD PGY2 Internal Medicine Attending Provider Attestation/Addendum I personally have seen and examined the patient at the bedside and agree with resident's findings, assessment and plan of care. Impression: Acute ischemic CVA secondary to small vessel disease Hypertension Plan/recommendation: Patient does not have any significant focal neurological deficit on exam. Continue with aspirin plus Plavix and statin and blood pressure control. Follow-up with echocardiogram
[2025-04-05] MEDS: ATORVASTATIN CALCIUM 20 MG TABLET 80 MG PO (20:16)
[2025-04-06] VITALS (7 sets, daily range): BP systolic 137–170; BP diastolic 89–110; PULSE 57–87; RESP 16–21; TEMP 36.2–36.8; O2SAT 94–98
[2025-04-06 06:21] LABS: Basophils # (Auto) 0.1 Thou/mm3 (0.0-0.2); Basophils % (Auto) 1 % (0-2.5); Eosinophils # (Auto) 0.3 Thou/mm3 (0.0-0.5); Eosinophils % (Auto) 3 % (0-10); Hematocrit 45.7 % (41.0-53.0); Hemoglobin 15.1 g/dL (13.5-16.0); Immature Granulocytes Auto 0.05 Thou/mm3 (0.00-0.00); Lymphocytes # (Auto) 2.3 Thou/mm3 (1.0-4.8); Lymphocytes % (Auto) 20 % (10-50); Mean Corpuscular HGB Conc 33.0 g/dl (31.0-37.0); Mean Corpuscular Hemoglobin 31.0 pg (25.0-35.0); Mean Corpuscular Volume 94 fL (80-100); Monocytes # (Auto) 0.8 Thou/mm3 (0.0-0.8); Monocytes % (Auto) 7 % (0-12); Neutrophils # (Auto) 8.0 Thou/mm3 (1.8-7.7); Neutrophils % (Auto) 69 % (37-80); Nucleated Red Blood Cell # 0.00 Thou/mm3 (0.00-0.00); Nucleated Red Blood Cell % 0 /100 WBC (0); Platelet Count 468 Thou/mm3 (140-440); RDW Standard Deviation 47.1 fL (35.1-43.9); Red Blood Count 4.87 Miln/mm3 (4.50-5.90); White Blood Count 11.6 Thou/mm3 (3.8-10.6)
[2025-04-06 06:43] LABS: Alanine Aminotransferase 12 U/L (10-49); Albumin, Serum 4.1 gm/dL (3.5-5.0); Albumin/Globulin Ratio 1.5 (1.2-2.2); Alkaline Phosphatase 111 U/L (46-116); Anion Gap 11 (7-16); Aspartate Amino Transferase 16 U/L (0-34); BUN/Creatinine Ratio 14 Ratio (12-20); Bilirubin,Total 0.3 mg/dL (0.3-1.2); Blood Urea Nitrogen 14 mg/dL (9-23); Calcium 9.3 mg/dL (8.3-10.6); Calcium (Corrected) 9.3 mg/dL (8.5-10.1); Carbon Dioxide 25.1 mMol/L (20.0-31.0); Chloride 106 mMol/L (98-107); Creatinine (Component) 1.0 mg/dL (0.6-1.3); Estimated Creatinine Clearance 103.4 mL/min (>60); Globulin 2.8 gm/dL (2.3-3.5); Glucose 90 mg/dL (74-106); Magnesium 2.0 mg/dL (1.6-2.6); Osmolality,Calculated 283 (275-295); Phosphorous 2.5 mg/dL (2.4-5.1); Potassium 4.1 mMol/L (3.4-5.1); Sodium 142 mMol/L (136-145); Total Protein 6.9 gm/dL (5.7-8.2); eGFR > 60 See Note
--- NOTE | 2025-04-06 07:47 | PC.NURSE ---
Dr. Segal aware pt. verbalilzed plan to leave AMA if ECHO is not done today. Called warehouser to see if [facility] will be in house today. Waiting for response. Dr. Kate and no further orders at this time.
[2025-04-06] MEDS: ENOXAPARIN SOD INJ 40 MG/0.4 ML SYRINGE SC (08:52)
[2025-04-06] MEDS: ASPIRIN EC 81 MG TABEC PO (08:52)
[2025-04-06] MEDS: CLOPIDOGREL BISULFATE 75 MG TABLET PO (08:52)
--- NOTE | 2025-04-06 09:20 | PC.NURSE ---
Called Dr. Dunlap, Dr. Dunlap aware pt. family at bedside and is requesting to a doctor now. coming to bedside.
--- NOTE | 2025-04-06 10:34 | PC.NURSE ---
pt. tried to go AMA, Dr. Segal and Dr. Manzanares came to bedside and explained that ECHO is still pending and we do not have completed plan for pt. Pt. agreed to stay for now, pt. requesting Nicotine patch and Dr. Manzanares agrees to order.
[2025-04-06] MEDS: NICOTINE PATCH 21 MG/24 HR PATCH.TD24 TOP (10:39)
--- NOTE | 2025-04-06 11:45 | PC.NURSE ---
Dr. Manzanares aware pt. BP 155/98, orders to give PRN hydralazine, wait 30 mins, and then reassess. If BP improves, may resume DC.
[2025-04-06] MEDS: hydrALAZINE INJ 20 MG/ML VIAL 10 MG IV (11:49)
--- NOTE | 2025-04-06 12:04 | PC.NURSE ---
Dr. Manzanares aware there was no BP meds ordered for home. Pt. has high BP. states I will check to see if he needs anything for home with my team. no new orders at this time.
--- NOTE | 2025-04-06 17:06 | ESDS_ITS ---
<Statement entered by Clarice Khanna DO - 04/06/25 18:29> I, Clarice Khanna DO, attest that I was physically present for the curiel portions of the service and evaluated the patient with the resident and I reviewed and discussed the case with the resident and agree with the resident's findings and plans of care as documented above <Statement entered by Eric Green MD - 04/06/25 17:24> Patient was examined and case was reviewed with team including attending physician. Note reviewed, I agree with most of its contents and agree with the patient's care as documented by Dr. Germán Green MD PGY-2 Planned Discharge Date 04/06/25 DS: Providers Provider Date of admission: 04/03/25 08:32 Primary care physician: Steven Green MD Admitting Provider: Clarice Khanna DO Attending Provider on Admission: Clarice Khanna DO Consults: 04/03/25 06:29 Consult to Neurology / Tele-Neurology Routine Comment: Consulting Provider: [facility] 04/03/25 08:19 Referral Speech Therapy Stat Comment: 04/03/25 10:27 Referral Physical Therapy Stat Comment: Physician Instructions: 04/03/25 11:00 Consult to Neurology / Tele-Neurology Stat Comment: stroke r/o Consulting Provider: Jarvis Garcia Attending Provider on DC: Clarice Khanna DO Discharging Provider: Juan A Dunlap DO Anticipated date of discharge: 04/06/25 DS: Diagnosis Problem List Completed Was Problem List Reviewed/Reconciled?: Yes Hospital Course Hospital Course Hospital course: 49-year-old male with hypertension who presented on 04/03 with dysarthria and left facial droop. Symptoms began on 04/02 while working outside. Initial BP was 206/134, UDS was positive for methamphetamine. Imaging revealed multiple small acute infarcts in the right basal ganglia. He was not a candidate for tPA due to delayed presentation. He was started on dual antiplatelet therapy (aspirin + clopidogrel), high-dose statin, and antihypertensives. TTE with bubble study showed no shunt or wall motion abnormalities. Swallow evaluation initially failed but later improved. PT recommended discharge with home health. Neurologic deficits improved during hospitalization. He remained hemodynamically stable. Patient is medically and physically stable for discharge. Diagnosis: #Acute ischemic stroke #Hypertensive emergency #Hypertension #Methamphetamine use #Dysarthria, improving #Dysphagia, resolved #Leukocytosis #Thrombocytosis #Tobacco use disorder Discharge Plan: Start taking aspirin, clopidogrel, Losartan and atorvastatin daily. STOP Hydrocholothiazide. Follow up with neurology and primart care doctor within 2 weeks. Abstain from using any drugs. Return to the ED if symptoms recur or worsen. Case discussed with my senior resident Dr. Philipp Green and with my attending Dr. Khanna. Juan A Dunlap DO PGY 1 Status at Discharge Overall status at discharge: patient is progressing back to baseline Time Spent with Patient Time attestation: Total time spent providing and/or coordinating discharge services: Time spent: Greater than 30 minutes Quality: Stroke Pt Provided Written Stroke Discharge Instructions: Yes Exam Vital Signs Temp Pulse Resp BP Pulse Ox O2 Del Method 98.3 F 68 18 155/89 H 97 Room Air 04/06/25 12:37 04/06/25 12:37 04/06/25 12:37 04/06/25 12:37 04/06/25 12:37 04/06/25 12:37 Narrative Exam General: No acute distress, well nourished Eye: PERRL, EOMI, normal conjunctiva, no scleral icterus HENT: Normocephalic, atraumatic, hearing intact to conversation at normal volume, moist oral mucosa Neck: Supple, non-tender, no JVD, no lymphadenopathy Lungs: CTAB, Non-labored respirations, symmetric chest rise Heart: Peripheral pulses intact bilaterally, S1 and S2 present, no MRG Abdomen: Soft, non-tender, non-distended Musculoskeletal: Normal range of motion and strength Skin: Skin is warm, dry, no rashes or lesions. Psychiatric: Cooperative, appropriate mood and affect Neuro: improving slurred speech; Right lower facial droop. Discharge Plan Plan Patient Disposition: HOME (Self Care) Patient condition on transfer: Stable Care Plan Goals: Start taking aspirin, clopidogrel, Losartan and atorvastatin daily. STOP Hydrocholothiazide. Follow up with neurology and primart care doctor within 2 weeks. Abstain from using any drugs. Return to the ED if symptoms recur or worsen. Prescriptions/Referrals Prescriptions/Med Rec: New aspirin 81 mg capsule 81 mg PO QDAY Qty: 30 0RF clopidogrel [Plavix] 75 mg tablet 75 mg PO QDAY Qty: 30 0RF atorvastatin 80 mg tablet 80 mg PO QDAY Qty: 30 0RF losartan 25 mg tablet 25 mg PO QDAY Qty: 30 0RF Discontinued hydrochlorothiazide 25 mg tablet 25 mg PO QAM Qty: 10 0RF Referrals: Steven Green MD [Primary Care Provider] - Patient/Caregiver Discharge Instructions Education Materials: Effects of a Stroke on the ..., Stroke and Heart Disease, Stroke: Resources and Support, Stroke: Self-Care, Anatomy of the Brain, Hypertension Dc, Risk Factors for Stroke, Stroke Self Care After Print Language: Mauritian Stand Alone Forms: [facility] Award Info., Patient Portal Info Letter Discharge Order Discharge Orders: Discharge (Routine); Ordered 04/06/25 Ordered By: Eric Green Quality Discharge Quality Measures none
--- NOTE | 2025-04-06 23:16 | ESPR_ITS ---
Documentation for date of: 04/06/25 Subjective Subjective Interval history: Patient is in telemetry. No new symptoms reported. No recurrence of similar episodes after admission. His left-sided strength improved and dysarthria resolved Exam - Neurology Vital Signs Temp Pulse Resp BP Pulse Ox O2 Del Method 98.3 F 68 18 155/89 H 97 Room Air 04/06/25 12:37 04/06/25 12:37 04/06/25 12:37 04/06/25 12:37 04/06/25 12:37 04/06/25 12:37 Narrative Exam GENERAL APPEARANCE: Well hydrated, well-nourished in no acute distress. HEENT: Normocephalic, atraumatic, extraocular movements intact. Pupils: Equal reacting to light and accommodation NECK: Supple, no JVD or bruits. CARDIOVASULAR: Heart: S1, S2 heard, regular without S3-S4 or murmur no rubs or gallops. LUNGS/CHEST: Clear to auscultation bilaterally. No rails, rhonchi, or wheezing. Normal inspection. ABDOMEN: Soft, nontender, with normal bowel sounds. No pulsatile masses. No rebound, rigidity, or guarding. Normal inspection and palpation. EXTREMITIES: Normal inspection and palpation. No edema, clubbing or cyanosis. SKIN: Warm and dry without rashes. Normal inspection. MUSCULOSKELETAL: No cervical, thoracic, lumbar or midline bony tenderness. Normal inspection. NEURO: Alert, awake and oriented x3. Cranial nerves: II through XII grossly intact. Speech and language: Normal with no dysarthria or dysphasia. Motor system: Tone and bulk: Normal: Strength: 5 out of 5 in all 4 extremities; No pronator drift noted. Deep tendon reflexes: 2+ bilaterally symmetrical. Plantar reflex: Downgoing bilaterally. Sensory system: Intact to all modalities of sensation bilaterally. Coordination: Intact to [id number] and bzco-tbif-drzx test bilaterally. No ataxia, no dysmetria, or dysdiadochokinesia noted. No intention tremors noted. Gait: Normal. Toe, heel, tandem walk all are normal. Romberg: Negative. No signs of meningeal irritation noted. PSYCHIATRIC: Normal mood and affect. Objective Labs 04/06/25 05:24 04/06/25 05:24 Labs: Laboratory Results - last 24 hr 04/06/25 05:24 WBC 11.6 H RBC 4.87 Hgb 15.1 Hct 45.7 MCV 94 MCH 31.0 MCHC 33.0 RDW Std Deviation 47.1 H Plt Count 468 H D Neut % (Auto) 69 Lymph % (Auto) 20 [place] % (Auto) 7 Eos % (Auto) 3 Baso % (Auto) 1 Neut # (Auto) 8.0 H Lymph # (Auto) 2.3 [place] # (Auto) 0.8 Eos # (Auto) 0.3 Baso # (Auto) 0.1 Immature Gran # (Auto) 0.05 H Absolute Nucleated RBC 0.00 Immature Gran % 0 Nucleated RBC % 0 Sodium 142 Potassium 4.1 Chloride 106 Carbon Dioxide 25.1 Anion Gap 11 BUN 14 Creatinine 1.0 Estim Creat Clear Calc 103.4 eGFR > 60 BUN/Creatinine Ratio 14 Glucose 90 Calculated Osmolality 283 Calcium 9.3 Corrected Calcium 9.3 Phosphorus 2.5 Magnesium 2.0 Total Bilirubin 0.3 AST 16 ALT 12 Alkaline Phosphatase 111 Total Protein 6.9 Albumin 4.1 Globulin 2.8 Albumin/Globulin Ratio 1.5 Assessment & Plan Additional Assessment & Plan Additional Plan: Patient is a 49-year-old male with a past medical history of hypertension medication not adherent and history of psoriasis who was admitted for dsyarthic speech and stroke work up. #CVA, Acute infarct of right basal ganglia including caudate #Dysarthic Speech #Left upper and lower extremity weakness #Left Facial Droop Patient presented to the emergency room with chief complain of slurred speech and lower/upper extremity weakness. Patient CT head negative for hemorrhage and MRI noted for multiple small acute infarcts, likely secondary to uncontrolled blood pressure as patient presented with hypertensive emergency, medication non- adherent and positive for meth. Given positive for meth, avoid beta blockers and allow for permissive hypertension for the next 24 hours. Diagnostics: MRI :Multiple small acute infarcts right basal ganglia including caudate nucleus CT head: Negative for acute hemorrhage, mass effect or midline shift Head/Neck CTA: No significant neck arterial stenoses. No cerebral large vessel arterial occlusions or thromboses Lipid Panel: Cholesterol 234, Triglycerides 100, LDL 131, HDL 83 TSH 1.96 A1c 5.6 Plan: -Continue Aspirin 81 mg PO qday, Plavix 75 mg qday, and Atorvastatin 80 mg HS - Patient is stable for discharge from neurology standpoint. Substance abuse and smoking cessation: Strongly advised #Hypertensive Emergency, resolved. #Hypertesion #Leukocytosis, resolved. #Thrombocytosis, resolved. #Erythrocytosis #substance use disorder, meth #active smoker, 10 year pack history
--- NOTE | 2025-04-08 07:57 | PC.CM ---
Home health referral sent out via [facility], awaiting responses at this time.
--- NOTE | 2025-04-09 11:53 | PC.CC ---
[facility] accepted and booked, soc 04/09
== END 2025-04-06 12:37 | disposition home or self-care (01) | DRG 45 ==
LOC: SERX 07:40 → SERHOLD 08:42 → S2NX 16:43
PROVIDERS: Admitting Provider Internal Medicine; Emergency Provider Family Medicine; PCP Family Medicine; Visit Provider Internal Medicine
DX: I63.81 Other cerebral infarction due to occlusion or stenosis of small artery (principal); I10 Essential (primary) hypertension; Z91.148 Patient's other noncompliance with medication regimen for other reason; F17.210 Nicotine dependence, cigarettes, uncomplicated; R47.1 Dysarthria and anarthria; I16.1 Hypertensive emergency; D75.839 Thrombocytosis, unspecified; D72.829 Elevated white blood cell count, unspecified; F15.10 Other stimulant abuse, uncomplicated; G81.94 Hemiplegia, unspecified affecting left nondominant side; R13.10 Dysphagia, unspecified; R29.705 NIHSS score 5; R29.810 Facial weakness; Z79.02 Long term (current) use of antithrombotics/antiplatelets; D75.1 Secondary polycythemia; Z79.82 Long term (current) use of aspirin; Z79.899 Other long term (current) drug therapy; Z86.73 Personal history of transient ischemic attack (TIA), and cerebral infarction without residual deficits
CPT/HCPCS: 36415; 70450; 70496; 70498; 70544; 80053; 80061; 80307; 80320; 81001; 83036; 83735; 83880; 84100; 84443; 84484; 85025; 85610; 85730; 87086; 92507; 92523; 92526; 92610; 93005; 93306; 96361; 96374; 97162; 99284; A4649; J0360; J1650; J3475; J3490; J7030; Q9967; A9270; G0480; J1920

== ENCOUNTER 2025-04-19 15:51 | Inpatient (IN) | payer MEDICAID, SELFPAY ==
[2025-04-19 15:55] VITALS: BP 135/89; PULSE 124; RESP 18; RESP 20; TEMP 36.8; O2SAT 96; O2SAT 98; BMI 25.4; BMI 26.6
--- NOTE | 2025-04-19 16:24 | PD.EDGIBLD ---
ED GI Bleed RME/HPI General Chief complaint: GI Bleed Stated complaint: VOMITING BLOOD Time Seen by Provider: 04/19/25 16:22 Arrival date/time: 04/19/25 15:51 Limitations: no limitations RME / HPI RME / HPI Narrative: 49 year old male with history of hypertension, CVA (dx 04/06/2025) started on 81mg Aspirin and 75mg Plavix presents to the ED BIBA from home for evaluation of vomiting brown material today. Accompanied by abdominal discomfort, no true pain. Additionally states his stool is dark in color, no gross blood. No other associated symptoms or complaints reported. Denies fevers, chills, sweats, chest pain, cough, shortness of breath, or urinary symptoms. States last drank years ago. Related Data Previous Rx's ?Medication ?Instructions ?Recorded aspirin 81 mg capsule 81 mg PO QDAY #30 caps 04/04/25 atorvastatin 80 mg tablet 80 mg PO QDAY #30 tabs 04/04/25 clopidogrel 75 mg tablet (Plavix) 75 mg PO QDAY #30 tabs 04/04/25 losartan 25 mg tablet 25 mg PO QDAY #30 tabs 04/06/25 Allergies Allergy/AdvReac Type Severity Reaction Status Date / Time No Known Allergies Allergy Verified 04/19/25 15:55 Review of Systems Review of Systems Systems Reviewed: All systems reviewed, normal except as documented Past Medical History Past Medical History CARDIAC: Positive Cardiac Disorders and Hypertension OTHER HISTORY: Positive Falls and Blood Transfusions Surgical History SURGICAL: Negative Cardiac Surgery, Endocrine Surgery, Ear Surgery, Abdominal Surgery, Nephrectomy, Joint Replacement, Neurologic Surgery, Mastectomy or Vasectomy Social History SMOKING STATUS: Heavy (> 1 pack/day) ED Exam General Limitations: Present no limitations General appearance: Present alert and in no apparent distress Head Head exam: Present atraumatic, normocephalic and normal inspection Eye Eye exam: Present normal appearance, PERRL and EOMI ENT ENT exam: Present normal exam, normal oropharynx and mucous membranes moist Neck Neck exam: Present normal inspection, full ROM and trachea midline Chest Chest inspection: Present normal inspection and symmetric chest wall rise Respiratory Respiratory exam: Present normal lung sounds bilaterally Cardiovascular Cardiovascular exam: Present regular rate, normal rhythm and normal heart sounds Abdominal Exam Abdominal exam: Present soft and normal bowel sounds Extremities Exam Extremities exam: Present normal inspection and full ROM Back Exam Back exam: Present normal inspection and full ROM Neurological Exam Neurological exam: Present alert, oriented X3 and CN II-XII intact Psychiatric Psychiatric exam: Present normal affect and normal mood Skin Skin exam: Present warm, dry, intact and normal color Course Quality Measures none Orders Category Date Time Status X Ray Technician NOW Care 04/19/25 16:38 Active X Ray Technician STAT Care 04/19/25 16:36 Active Continuous Pulse Oximetry Care 04/19/25 16:38 Active Continuous Pulse Oximetry NOW Care 04/19/25 16:36 Active EKG (ED ONLY) *Do not use* NOW Care 04/19/25 16:01 Completed Insert IV STAT Care 04/19/25 16:36 Completed Intake and Output Routine Care 04/19/25 16:36 Ordered NPO NOW Care 04/19/25 16:36 Active Occult Blood,Stool (Nursing) NOW Care 04/19/25 16:37 Active Orthostatic Vitals NOW Care 04/19/25 16:36 Active EKG (ED Only) Stat Exams 04/19/25 16:01 Ordered CBC Stat Lab 04/19/25 16:09 Completed Comprehensive Metabolic Panel Stat Lab 04/19/25 16:09 Completed Lipase Stat Lab 04/19/25 16:09 Completed Magnesium Stat Lab 04/19/25 16:09 Completed Occult Blood, Stool (LAB) Stat Lab 04/19/25 17:18 Completed Partial Thromboplastin Time Stat Lab 04/19/25 16:09 Completed Prothrombin Time with INR Stat Lab 04/19/25 16:09 Completed Troponin I Stat Lab 04/19/25 16:09 Completed Metoclopramide Inj [Reglan Inj] Med 04/19/25 16:36 Discontinued 5 mg IVP X1 ONE Pantoprazole Inj [Protonix Inj] Med 04/19/25 16:36 Discontinued 80 mg IVP X1 ONE Sodium Chloride 0.9% 1000 ml [Ns] 1,000 ml Med 04/19/25 16:36 Discontinued IV 999 mls/hr Vital Signs Vital signs: Vital Signs Temperature 98.2 F 04/19/25 15:55 Pulse Rate 124 H 04/19/25 15:55 Respiratory Rate 18 04/19/25 15:55 Blood Pressure 135/89 H 04/19/25 15:55 Pulse Oximetry (%) 98 04/19/25 15:55 Oxygen Delivery Method Room Air 04/19/25 15:55 Pulse ox is 98% on room air which is adequate. GI Bleed MDM Narrative MDM Narrative:: ITessa, am scribing for and in the presence of Dr. Patton. Patient data External records reviewed:: [facility] previous records (I reviewed admission from 04/03-04/06/2025 for acute CVA ) and EMS form Clinical information provided by:: patient and EMS Social determinants that could affect healthcare access:: none Patient has the following chronic illnesses:: hypertension, CVA (dx 04/06/2025) started on 81mg Aspirin and 75mg Plavix How is presenting disease/condition affected by chronic disease/condition?: exacerbated by Evaluation data The following diagnostics were reviewed and interpreted by me:: lab results and EKG tracing(s) (EKG @ 16:00 Sinus tachycardia, rate 126, no acute ST changes ) Lab and/or radiology exams considered but not ordered:: None Interpretation Summary: Leukocytosis Hemoccult is guaiac negative Medications / Prescriptions Medications or Prescriptions considered but not ordered:: None Medication administrations:: Medication Administration History Discontinued Medications Sodium Chloride (Ns) 1,000 mls @ 999 mls/hr IV .Q1H1M ONE Stop: 04/19/25 17:36 Last Admin: 04/19/25 17:30 Dose: 999 mls/hr Documented By: Metoclopramide HCl (Metoclopramide Inj 5 Mg/Ml Vial 2 Ml) 5 mg IVP X1 ONE Stop: 04/19/25 16:37 Last Admin: 04/19/25 17:23 Dose: 5 mg Documented By: Pantoprazole Sodium (Pantoprazole Inj 40 Mg Vial) 80 mg IVP X1 ONE Stop: 04/19/25 16:37 Last Admin: 04/19/25 17:24 Dose: 80 mg Documented By: GM See above Consultations Consultation(s) initiated? (list below): Yes Consultation #1 (Physician, Specialty, Details): I spoke with hospitalist Dr. Castillo regarding admission. Consultation #2 (Physician, Specialty, Details): I spoke with GI Dr. Brandon. Discussed patients PMHx, HPI, ED course, exam findings, labs results. He agrees to consult. Diagnosis GI bleed differential diagnosis: esophageal varices, gastritis and Upper gastrointestinal hemorrhage Most likely diagnosis given after review of the tests above:: Upper GI bleed Admission Indicated Admission indicated?: indicated Admission Request Was there a request for admission?: Yes Admission Attestation Admission request attestation: Discussed case with [] from Hospitalist service regarding admission. Discussed patients ED course, exam findings, labs, and radiology results. The Hospitalist [agrees,declines] to accept the patient for admission. Disposition Plan Disposition Plan: Admit Critical Care Time Critical Care Time Critical Care Time: Yes Total Critical Care Time (min.): 35 Attestation: The high probability of sudden, clinically significant deterioration in the patient's condition required the highest level of my preparedness to intervene urgently. The services I provided to this patient were to treat and/or prevent clinically significant deterioration. Services included the following: chart data review, reviewing nursing notes and/or old charts, documentation time, data migration consultant collaboration regarding findings and treatment options, medication orders and management, direct patient care, vital sign assessments and ordering, interpreting and reviewing diagnostic studies and lab tests. Aggregate critical care time includes only time during which I was engaged in work directly related to the patient's care, as described above, whether at bedside or elsewhere in the Emergency Department. It did not include time spent performing other reported procedures or the services of residents, students, nurses or physician assistants. Discharge Plan Plan Patient Disposition: Admit Acute Care w/in Hospital Prescriptions/Referrals Prescriptions/Med Rec: No Action aspirin 81 mg capsule 81 mg PO QDAY Qty: 30 0RF clopidogrel [Plavix] 75 mg tablet 75 mg PO QDAY Qty: 30 0RF atorvastatin 80 mg tablet 80 mg PO QDAY Qty: 30 0RF losartan 25 mg tablet 25 mg PO QDAY Qty: 30 0RF Referrals: No Primary/Family,Physician [Primary Care Provider] - In 1 week Problem List Clinical Impression: Acute upper GI bleed Patient/Caregiver Discharge Instructions Print Language: Urdu Stand Alone Forms: [employer] Award Info., Patient Portal Info Letter
[2025-04-19 16:53] LABS: Basophils # (Auto) 0.1 Thou/mm3 (0.0-0.2); Basophils % (Auto) 1 % (0-2.5); Eosinophils # (Auto) 0.1 Thou/mm3 (0.0-0.5); Eosinophils % (Auto) 1 % (0-10); Hematocrit 31.5 % (41.0-53.0); Hemoglobin 10.3 g/dL (13.5-16.0); Immature Granulocytes Auto 0.65 Thou/mm3 (0.00-0.00); Lymphocytes # (Auto) 3.3 Thou/mm3 (1.0-4.8); Lymphocytes % (Auto) 14 % (10-50); Mean Corpuscular HGB Conc 32.7 g/dl (31.0-37.0); Mean Corpuscular Hemoglobin 30.8 pg (25.0-35.0); Mean Corpuscular Volume 94 fL (80-100); Monocytes # (Auto) 1.2 Thou/mm3 (0.0-0.8); Monocytes % (Auto) 5 % (0-12); Neutrophils # (Auto) 18.0 Thou/mm3 (1.8-7.7); Neutrophils % (Auto) 77 % (37-80); Nucleated Red Blood Cell # 0.00 Thou/mm3 (0.00-0.00); Nucleated Red Blood Cell % 0 /100 WBC (0); Platelet Count 454 Thou/mm3 (140-440); RDW Standard Deviation 46.4 fL (35.1-43.9); Red Blood Count 3.34 Miln/mm3 (4.50-5.90); White Blood Count 23.4 Thou/mm3 (3.8-10.6)
[2025-04-19 17:10] LABS: Alanine Aminotransferase 17 U/L (10-49); Albumin, Serum 3.8 gm/dL (3.5-5.0); Albumin/Globulin Ratio 1.7 (1.2-2.2); Alkaline Phosphatase 72 U/L (46-116); Anion Gap 12 (7-16); Aspartate Amino Transferase 14 U/L (0-34); BUN/Creatinine Ratio 35 Ratio (12-20); Bilirubin,Total 0.3 mg/dL (0.3-1.2); Blood Urea Nitrogen 46 mg/dL (9-23); Calcium 9.7 mg/dL (8.3-10.6); Calcium (Corrected) 9.9 mg/dL (8.5-10.1); Carbon Dioxide 21.7 mMol/L (20.0-31.0); Chloride 106 mMol/L (98-107); Creatinine (Component) 1.3 mg/dL (0.6-1.3); Estimated Creatinine Clearance 75.4 mL/min (>60); Globulin 2.2 gm/dL (2.3-3.5); Glucose 119 mg/dL (74-106); Lipase 33 U/L (12-53); Magnesium 1.6 mg/dL (1.6-2.6); Osmolality,Calculated 292 (275-295); Potassium 4.4 mMol/L (3.4-5.1); Sodium 140 mMol/L (136-145); Total Protein 6.0 gm/dL (5.7-8.2); Troponin I 0.030 ng/mL (0.0-0.045); eGFR > 60 See Note
[2025-04-19] MEDS: METOCLOPRAMIDE INJ 5 MG/ML VIAL 2 ML IVP (17:23)
[2025-04-19 17:29] LABS: OBS Developer Expiration Date 2026-09; OBS Developer Lot # 23003; OBS Performed By MADRG3; OBS QC OK? Yes; Occult Blood, Stool Positive (Negative)
[2025-04-19] MEDS: SODIUM CHLORIDE 0.9% 1000 ML 1,000 ML 999 ML IV (17:30)
[2025-04-19 17:53] LABS: INR 1.1 (0.9-1.3); Partial Thromboplastin Time 23.4 Seconds (22.0-36.0); Prothrombin Time 11.6 Seconds (9.0-12.2)
--- NOTE | 2025-04-19 17:58 | XR_ITS ---
Examination: AP chest single view Technique: AP portable upright chest single view Date and time: April 19, 2025, 1803 hrs., Comparison 02/25/2011. Indications: Chest pain coughing today. Findings: Mild prominence left ventricle Accentuation of the perihilar basilar bronchovascular markings. Old fracture right clavicle No lobar pneumonia or jackeline pulmonary edema Impression: Bronchitis pattern.
[2025-04-19 18:16] VITALS: BP 111/72; BP 148/74; PULSE 103; PULSE 126; PULSE 82; RESP 17; RESP 19; TEMP 36.8; O2SAT 100
[2025-04-19 18:18] VITALS: BP 101/76; BP 105/59; BP 90/70; PULSE 102; PULSE 112; PULSE 113
--- NOTE | 2025-04-19 18:46 | EVENTNT_ITS ---
Documentation for date of: 04/19/25 Event Note Event Note: Catalina Ching is a 49-year-old male with past medical history of CVA on 03/2025 (on aspirin and plavix) and hypertension who presents to the ED with dark- colored emesis and associated dark stools for last 1 to 2 days. Vital signs show initial BP of 135/89 and pulse of 124, drop in hemoglobin from 15.1-10.3 in less than 2 weeks, with a associated elevated BUN of 46. Of note, also has ALEJANDRA given creatinine of 1.3 with previous creatinine of 1.0. Given 1 L NS bolus in ED as well as 80 mg of IV pantoprazole. Recommend to consult GI for EGD and patient signed out directly to night team who will resume care. ----- Case discussed with attending physician Dr. Jonathan Chen MD PGY-2 Internal Medicine
--- NOTE | 2025-04-19 18:55 | PD.IMCONS ---
HPI Data of Consult Primary Care Provider: Physician No Primary/Family Consult Narrative Reason for consult: Hematemesis, melena History of present illness: 49 years old male positive obesity with coffee-ground hematemesis and melanotic stools presenting hemoglobin hematocrit 10.3 and 31.5 BUN/creatinine 46 and 1.3 patient does have a history of essential hypertension and CVA currently on aspirin and Plavix cc:: cc: Review of Systems Review of Systems Systems Reviewed: All systems reviewed, normal except as documented Past Medical History Surgical History OTHER SURGICAL HX: As in the history present illness Meds Home Medications and Allergies Allergies Allergy/AdvReac Type Severity Reaction Status Date / Time No Known Allergies Allergy Verified 04/19/25 15:55 Exam Vital Signs Temp Pulse Resp BP Pulse Ox O2 Del Method 98.3 F 102 H 19 105/59 L 100 Room Air 04/19/25 18:16 04/19/25 18:18 04/19/25 18:16 04/19/25 18:18 04/19/25 18:16 04/19/25 18:16 Constitutional Comments: Chronically ill-appearing Routine Respiratory Exam Comments: Normal to auscultation Routine Abdominal Exam Comments: Soft nontender Results Labs 04/19/25 16:09 04/19/25 16:09 Labs: Short CBC 04/19/25 Range/Units 16:09 WBC 23.4 H (3.8-10.6) Thou/mm3 Hgb 10.3 L (13.5-16.0) g/dL Hct 31.5 L (41.0-53.0) % Plt Count 454 H (140-440) Thou/mm3 BMP 04/19/25 16:09 Sodium 140 Potassium 4.4 Chloride 106 Carbon Dioxide 21.7 BUN 46 H Creatinine 1.3 Glucose 119 H Calcium 9.7 Cardiac Enzymes 04/19/25 Range/Units 16:09 Troponin I 0.030 (0.0-0.045) ng/mL Liver Function 04/19/25 Range/Units 16:09 Total Bilirubin 0.3 (0.3-1.2) mg/dL AST 14 (0-34) U/L ALT 17 (10-49) U/L Alkaline Phosphatase 72 (46-116) U/L Albumin 3.8 (3.5-5.0) gm/dL Assessment and Plan Additional Assessment & Plan Additional Plan: # Hematemesis # Melena Plan IV Protonix Serial CBC Transfuse PRBC if the hemoglobin drops below 7 g Aspirin and Plavix Hold off Consent obtained for fiberoptic esophagogastroduodenoscopy with possible biopsy possible therapeutic intervention under intravenous moderate sedation EGD other medical problems include Essential hypertension CVA on aspirin and Plavix Thank you very much for the opportunity to participate in the care of this patient
[2025-04-19 19:00] VITALS: BP 124/82; PULSE 85; RESP 20; TEMP 37; O2SAT 100
--- NOTE | 2025-04-19 19:30 | XR_ITS ---
Examination: CT brain head without contrast. 2-D sagittal coronal reconstructions Date and time of exam:April 19, 2025, 1957 hrs. Dizziness episodes 2 months, stroke alert April 03, 2025, multiple acute infarcts right basal ganglia and caudate nucleus on MRI brain April 03, 2025 CTDI: vol (mGy):50.5 DLP: (mGycm):1039 Technique: Multiple CT axial sections of the brain have been obtained, 5 mm slice thickness. Contrast has not been administered. 2-D sagittal, coronal reconstructions have been obtained Low dose protocols were performed. One or more of the following dose reduction techniques were used; automated exposure control, adjustment of the mA and/or KV according to patient size, use of iterative reconstruction technique. Findings: No significant ventricular enlargement. Multiple small basal ganglia infarcts Intra-axial or extra-axial hemorrhage density is not seen. No mass effect or midline shift Basal cisterns are not remarkable. Fourth ventricle is midline. Cranial vault intact. Impression: Negative for acute hemorrhage, mass effect or midline shift Recommend repeat brain MRI follow-up, stroke protocol, to assess progression of the basal ganglia infarcts noted on the MRI brain study April 03, 2025
[2025-04-19 19:34] LABS: Collection Type, Urine Clean Catch
[2025-04-19 19:44] LABS: Bacteria,Urine Rare; Bilirubin,Urine Negative (Negative); Blood,Urine Negative (Negative); Clarity,Urine Clear (Clear/Hazy); Color,Urine Lt-Yellow (Lt Yel-Yel); Culture Indicated,Urine Not Indicated; Glucose, Urine Negative (Negative); Hyaline Casts,Urine < 1 /hpf (0-1); Ketones,Urine Negative (Negative); Leukocyte Esterase,Urine Negative (Negative); Nitrite,Urine Negative (Negative); PH,Urine 6.0 (5.0-7.0); Protein,Urine Trace (Neg - Trace); RBC,Urine 1 /hpf (0-3); Specific Gravity,Urine 1.022 (1.001-1.035); Squamous Epithelial Cell,Urine 1 /hpf (0-5); Urobilinogen,Urine Negative mg/dL (0.0-1.0); WBC,Urine 4 /hpf (0-5)
[2025-04-19] MEDS: cefTRIAXone/D5w 1gm IV premix 1 GM/50 ML BAG IV (20:33)
[2025-04-19] MEDS: OCTREOTIDE ACET INJ 1,000 MCG in SODIUM CHLORIDE 0.9% 100 ML 5.1 MCG IV (21:27)
[2025-04-19 21:31] LABS: Hematocrit 25.9 % (41.0-53.0)
[2025-04-19 21:34] LABS: Hemoglobin 8.6 g/dL (13.5-16.0)
--- NOTE | 2025-04-19 21:39 | PD.RESHP ---
Documentation for date of: 04/19/25 [facility] History of Present Illness Chief complaint: Dark-colored emesis and stools History of present illness: Mr. Ching is a 49-year-old male past medical history of hypertension, CVA on 03/2025 (on aspirin and Plavix) presented to the ED on 04/19/2025 with chief complaint of hematemesis and dark stool. Patient reports that for the past 1 to 2 days has been having hematemesis and dark stools. Associated with dizziness. He denies shortness of breath, chills, sweats, chest pain, hematuria. ED Course: -Initial vitals were BP 135/89, pulse 74, resp rate 18, temp 90.2, O2 sat 90% on room air. -Labs significant for WBC 23.4, Hemoglobin 10.3, hematocrit 31.5, platelets 454, BUN 46, bun/creatinine 25, mg 1.6 -Imaging included chest x-ray showed showed no pneumonia nor pulmonary edema. Head CT Negative for acute hemorrhage -In the ED, patient was given metoclopramide, Protonix, 1L NS fluids, ceftriaxone -Patient was admitted for GI bleed work up. Review of Systems Review of systems otherwise negative except what is mentioned above. Past Medical History: CVA -March 2025 Family History: Noncontributory Surgical History: Noncontributory Social History: 1 pack/day for 20 years, former meth user, endorses excessive alcohol use but reports quit ~2 years ago Current Medications: (Source: ) Allergies: No known drug allergies Exam Vital Signs Temp Pulse Resp BP Pulse Ox O2 Del Method 98.6 F 124 H 20 124/82 100 Room Air 04/19/25 19:04/19/25 19:04/19/25 19:04/19/25 19:04/19/25 19:04/19/25 19:00 Narrative Exam General: Facial flushing noted, Alert, no acute distress. Skin: Warm, dry, intact. No rash or ecchymoses. Head: Normocephalic, atraumatic. Eye: Normal conjunctiva, PERRL. Throat: Oral mucosa moist. No obvious lesions in oropharynx. Cardiovascular: Regular rate and rhythm, no murmur, +S1/S2. Respiratory: Lungs are clear to auscultation, respirations unlabored, no crackles, no wheezing. Gastrointestinal: Soft, nontender, non-distended. No guarding or rebound tenderness. Extremities: No edema, no cyanosis, no clubbing. Neuro: Alert and oriented x3.No focal deficits observed. Conversant, moving all extremities. No overt cerebellar signs/incoordination. Psychiatric: Cooperative, sad affect Results: Labs 04/20/25 05:00 04/19/25 16:09 Labs: Short CBC 04/19/25 04/19/25 Range/Units 16:09 20:14 WBC 23.4 H (3.8-10.6) Thou/mm3 Hgb 10.3 L 8.6 L (13.5-16.0) g/dL Hct 31.5 L 25.9 L (41.0-53.0) % Plt Count 454 H (140-440) Thou/mm3 BMP 04/19/25 16:09 Sodium 140 Potassium 4.4 Chloride 106 Carbon Dioxide 21.7 BUN 46 H Creatinine 1.3 Glucose 119 H Calcium 9.7 Cardiac Enzymes 04/19/25 Range/Units 16:09 Troponin I 0.030 (0.0-0.045) ng/mL Liver Function 04/19/25 Range/Units 16:09 Total Bilirubin 0.3 (0.3-1.2) mg/dL AST 14 (0-34) U/L ALT 17 (10-49) U/L Alkaline Phosphatase 72 (46-116) U/L Albumin 3.8 (3.5-5.0) gm/dL Urine 04/19/25 Range/Units 19:08 Urine Color Lt-Yellow (Lt Yel-Yel) Urine Clarity Clear (Clear/Hazy) Urine pH 6.0 (5.0-7.0) Ur Specific [place] 1.022 (1.001-1.035) Urine Protein Trace (Neg - Trace) Urine Glucose (UA) Negative (Negative) Quality Measures Quality Measures none Medications Home Medications and Allergies Allergies Allergy/AdvReac Type Severity Reaction Status Date / Time No Known Allergies Allergy Verified 04/19/25 15:55 Visit Medications Ceftriaxone Sodium/Dextrose (Rocephin/D5w 1gm Iv Premix) 1 gm in 50 mls @ 100 mls/hr IV QDAY YAMILETH Stop: 04/26/25 20:12 Last Infusion: 04/19/25 21:09 Dose: Infused Octreotide Acetate 1,000 mcg/ (Sodium Chloride) 102 mls @ 5.1 mls/hr IV .Q20H YAMILETH; Protocol Stop: 04/24/25 20:35 Octreotide Acetate 1,000 mcg/ (Sodium Chloride) 102 mls @ 5.1 mls/hr IV .Q20H YAMILETH; Protocol Stop: 04/20/25 16:44 Last Admin: 04/19/25 21:27 Dose: 50 mcg/hr, 5.1 mls/hr Ondansetron HCl (Ondansetron Inj 2 Mg/Ml Inj 2 Ml) 4 mg IVP PRN PRN; Protocol PRN Reason: NAUSEA OR VOMITING Stop: 05/19/25 21:33 Pantoprazole Sodium (Pantoprazole Inj 40 Mg Vial) 40 mg IVP BID YAMILETH Stop: 05/20/25 08:59 Discontinued Medications Sodium Chloride (Ns) 1,000 mls @ 999 mls/hr IV .Q1H1M ONE Stop: 04/19/25 17:36 Last Infusion: 04/19/25 18:15 Dose: Infused Metoclopramide HCl (Metoclopramide Inj 5 Mg/Ml Vial 2 Ml) 5 mg IVP X1 ONE Stop: 04/19/25 16:37 Last Admin: 04/19/25 17:23 Dose: 5 mg Pantoprazole Sodium (Pantoprazole Inj 40 Mg Vial) 80 mg IVP X1 ONE Stop: 04/19/25 16:37 Last Admin: 04/19/25 17:24 Dose: 80 mg Assessment & Plan Plan Mr. Ching is a 49-year-old male past medical history of hypertension, CVA on 03/2025 (on aspirin and Plavix) presented to the ED on 04/19/2025 with chief complaint of hematemesis and dark stool. GI bleed workup and management. #Upper vs lower GI bleed work-up #Acute blood loss anemia Patient presented with episode of hematemesis and melena. History of extensive alcohol use; reports cessation approximately years ago. Clinical picture concerning for upper GI bleed. On admission Hgb 10.3-->8.6 Hb. Hct 31.5->25.9, concern for active bleeding - Started octreotide - GI Dr. Brandon consulted, NPO, likely EGD tomorrow - Protonix 40 mg twice daily - Ceftriaxone 1 gm (04/20/25)- -Zofran 4 mg for nausea - Repeat H&H -Type and screen - Transfuse if hemoglobin< 7 -Avoiding NSAIDs/ASA/chemical anticoagulation #Leukocytosis Leukocytosis likely reactive due to GI bleed. WBC 23.4. - continue to monitor CBC and CMP # Essential hypertension Patient has a history of hypertension which is managed with losartan 25 mg p.o. daily - Consider resuming home meds #Hx CVA, infarct of right basal ganglia(03/2025) Discharged on Plavix 75 mg, aspirin 81 mg. -Monitor Hospital management: Lines: peripheral IV Diet: NPO GI prophylaxis: pantoprazole DVT prophylaxis: SCDs Disposition: tele for management of GIB CODE STATUS: Full code Patient seen and assessed under supervision of attending physician and discuss with senior resident Dr. Moscoso PGY-2 Britney Rawls MD PGY-1, Internal Medicine Please note: this document was transcribed using voice recognition technology; minor inaccuracies may be present. Attending Provider Attestation/Addendum After examination of the patient and review of the clinical data I feel that this patient needs admission to the hospital for further treatment/evaluation. I Janet Chaudhary MD, attest that I was physically present for curiel portions of evaluation, and examined patient, labs and imagings and plan of care were discussed with IM residents team, and I agree with the findings and plans documented above.
--- NOTE | 2025-04-19 22:37 | PC.NURSE ---
report received from [facility].
[2025-04-19 22:42] VITALS: BP 110/72; PULSE 68; RESP 14; TEMP 37.1; O2SAT 97
[2025-04-20] VITALS (18 sets, daily range): BP systolic 108–162; BP diastolic 67–103; PULSE 74–121; RESP 15–21; TEMP 36.8–37.2; O2SAT 90–100; BMI 26.0
[2025-04-20] MEDS: Magnesium Sulfate 4 GM Ivpb 4 GM/50 ML BAG IV (00:59)
[2025-04-20 03:03] LABS: Alcohol, Urine Negative (Negative); Amphetamine/Methamp Scrn,U Positive (Negative); Barbiturate Screen,Urine Negative (Negative); Benzodiazepines Screen,Urine Negative (Negative); Benzoylecgonine Screen, Ur Negative (Negative); Fentanyl Screen,Urine Negative (Negative); Opiate Screen,Urine Negative (Negative); THC Screen,Urine Negative (Negative)
[2025-04-20 06:21] LABS: Basophils # (Auto) 0.1 Thou/mm3 (0.0-0.2); Basophils % (Auto) 0 % (0-2.5); Eosinophils # (Auto) 0.3 Thou/mm3 (0.0-0.5); Eosinophils % (Auto) 2 % (0-10); Hematocrit 24.9 % (41.0-53.0); Immature Granulocytes Auto 0.25 Thou/mm3 (0.00-0.00); Lymphocytes # (Auto) 3.2 Thou/mm3 (1.0-4.8); Lymphocytes % (Auto) 18 % (10-50); Mean Corpuscular HGB Conc 32.9 g/dl (31.0-37.0); Mean Corpuscular Hemoglobin 31.2 pg (25.0-35.0); Mean Corpuscular Volume 95 fL (80-100); Monocytes # (Auto) 1.2 Thou/mm3 (0.0-0.8); Monocytes % (Auto) 7 % (0-12); Neutrophils # (Auto) 12.7 Thou/mm3 (1.8-7.7); Neutrophils % (Auto) 71 % (37-80); Nucleated Red Blood Cell # 0.00 Thou/mm3 (0.00-0.00); Nucleated Red Blood Cell % 0 /100 WBC (0); Platelet Count 414 Thou/mm3 (140-440); RDW Standard Deviation 46.7 fL (35.1-43.9); Red Blood Count 2.63 Miln/mm3 (4.50-5.90); White Blood Count 17.8 Thou/mm3 (3.8-10.6)
[2025-04-20 06:24] LABS: Hemoglobin 8.2 g/dL (13.5-16.0)
[2025-04-20 06:53] LABS: Alanine Aminotransferase 12 U/L (10-49); Albumin, Serum 3.2 gm/dL (3.5-5.0); Albumin/Globulin Ratio 1.8 (1.2-2.2); Alkaline Phosphatase 63 U/L (46-116); Anion Gap 11 (7-16); Aspartate Amino Transferase 10 U/L (0-34); BUN/Creatinine Ratio 35 Ratio (12-20); Bilirubin,Total 0.2 mg/dL (0.3-1.2); Blood Urea Nitrogen 38 mg/dL (9-23); Calcium 8.6 mg/dL (8.3-10.6); Calcium (Corrected) 9.2 mg/dL (8.5-10.1); Carbon Dioxide 25.0 mMol/L (20.0-31.0); Chloride 107 mMol/L (98-107); Creatinine (Component) 1.1 mg/dL (0.6-1.3); Estimated Creatinine Clearance 89.2 mL/min (>60); Globulin 1.8 gm/dL (2.3-3.5); Glucose 138 mg/dL (74-106); Magnesium 2.2 mg/dL (1.6-2.6); Osmolality,Calculated 295 (275-295); Phosphorous 2.8 mg/dL (2.4-5.1); Potassium 4.4 mMol/L (3.4-5.1); Sodium 143 mMol/L (136-145); Total Protein 5.0 gm/dL (5.7-8.2); eGFR > 60 See Note
[2025-04-20] MEDS: cefTRIAXone/D5w 1gm IV premix 1 GM/50 ML BAG IV (08:44)
--- NOTE | 2025-04-20 09:38 | ESPR_ITS ---
<Statement entered by Grupo Castillo MD - 04/26/25 07:13> I reviewed above note and agree with findings and plans. I have also personally examined the patient with medicine team and went over assessment and plan with medical team including policy intern and resident physician. <Statement entered by Paul Chen MD - 04/20/25 13:53> Note reviewed and agree with care plan as documented. Please refer to the note below for further details. Plan discussed with attending physician Paul Chen MD PGY-2 Internal Medicine Documentation for date of: 04/20/25 Subjective Subjective Interval history: 49-year-old male past medical history of hypertension, CVA on 03/2025 (on aspirin and Plavix) presented to the ED on 04/19/2025 with chief complaint of hematemesis and dark stool, on admission day 2 for acute blood loss anemia secondary to upper GI bleed. No acute overnight events. Patient was seen at bedside today morning. Has not had any vomiting or bowel moments since 11:00 am yesterday. Patient reported he slept fine, and currently in no pain or discomfort. Patient has not had any food since 11:00 am yesterday. Patient had some difficulty speaking, noted sticky/dry mouth. Patient shows understanding of the plan for EGD. Exam Vital Signs Temp Pulse Resp BP Pulse Ox O2 Del Method 98.6 F 87 19 123/77 90 L Room Air 04/20/25 08:00 04/20/25 08:00 04/20/25 08:00 04/20/25 08:00 04/20/25 08:00 04/20/25 08:00 Narrative Exam General: Patient is fully alert and oriented. In no acute distress. Cardio: RRR, no mumurs, gallops or rubs appreciated. Resp: Normal lung sounds, no rales, wheezing, or stridor. MSK: Low back pain when patient asked to sit, no other muscle or joint pain. GI: No abdomen distension, no tenderness to palpation in all quadrants, soft to palpation. Extremities: No presence of trace or pitting edema in lower extremities bilaterally, dorsalis pedis pulses +2 bilaterally. RLE medial malleolus skin desquamation (looks like psoriasis). Neuro: AAOx3, no focal motor or sensory deficits in the UE or LE bilat Psych: Good judgement, thought and behavior. Cooperative Objective Labs 04/20/25 05:00 04/20/25 05:00 Labs: Laboratory Results - last 24 hr 04/19/25 04/19/25 04/19/25 16:09 17:18 18:18 WBC 23.4 H RBC 3.34 L Hgb 10.3 L Hct 31.5 L MCV 94 MCH 30.8 MCHC 32.7 RDW Std Deviation 46.4 H Plt Count 454 H Neut % (Auto) 77 Lymph % (Auto) 14 [place] % (Auto) 5 Eos % (Auto) 1 Baso % (Auto) 1 Neut # (Auto) 18.0 H Lymph # (Auto) 3.3 [place] # (Auto) 1.2 H Eos # (Auto) 0.1 Baso # (Auto) 0.1 Immature Gran # (Auto) 0.65 H Absolute Nucleated RBC 0.00 Immature Gran % 3 H Nucleated RBC % 0 PT 11.6 INR 1.1 APTT 23.4 Sodium 140 Potassium 4.4 Chloride 106 Carbon Dioxide 21.7 Anion Gap 12 BUN 46 H Creatinine 1.3 Estim Creat Clear Calc 75.4 eGFR > 60 BUN/Creatinine Ratio 35 H Glucose 119 H Calculated Osmolality 292 Calcium 9.7 Corrected Calcium 9.9 Phosphorus Magnesium 1.6 Total Bilirubin 0.3 AST 14 ALT 17 Alkaline Phosphatase 72 Troponin I 0.030 Total Protein 6.0 Albumin 3.8 Globulin 2.2 L Albumin/Globulin Ratio 1.7 Lipase 33 Ur Collection Type Urine Color Urine Clarity Urine pH Ur Specific [place] Urine Protein Urine Glucose (UA) Urine Ketones Urine Blood Urine Nitrite Urine Bilirubin Urine Urobilinogen (Auto) Ur Leukocyte Esterase Urine RBC Urine WBC Ur Squamous Epith Cells Urine Bacteria Hyaline Casts Ur Culture Indicated? Stool Occult Blood Positive A Urine Opiates Screen Urine Fentanyl Screen Ur Barbiturates Screen U Amphetamin/Meth Scrn U Benzodiazepines Scrn U Cocaine Metab Screen U Marijuana (THC) Screen Urine Alcohol Blood Type O Positive Antibody Screen NEGATIVE Crossmatch See Detail Blood Bank Wristband ID Yes 04/19/25 04/19/25 04/20/25 19:08 20:14 01:50 WBC RBC Hgb 8.6 L Hct 25.9 L MCV MCH MCHC RDW Std Deviation Plt Count Neut % (Auto) Lymph % (Auto) [place] % (Auto) Eos % (Auto) Baso % (Auto) Neut # (Auto) Lymph # (Auto) [place] # (Auto) Eos # (Auto) Baso # (Auto) Immature Gran # (Auto) Absolute Nucleated RBC Immature Gran % Nucleated RBC % PT INR APTT Sodium Potassium Chloride Carbon Dioxide Anion Gap BUN Creatinine Estim Creat Clear Calc eGFR BUN/Creatinine Ratio Glucose Calculated Osmolality Calcium Corrected Calcium Phosphorus Magnesium Total Bilirubin AST ALT Alkaline Phosphatase Troponin I Total Protein Albumin Globulin Albumin/Globulin Ratio Lipase Ur Collection Type Clean Catch Urine Color Lt-Yellow Urine Clarity Clear Urine pH 6.0 Ur Specific [place] 1.022 Urine Protein Trace Urine Glucose (UA) Negative Urine Ketones Negative Urine Blood Negative Urine Nitrite Negative Urine Bilirubin Negative Urine Urobilinogen (Auto) Negative Ur Leukocyte Esterase Negative Urine RBC 1 Urine WBC 4 Ur Squamous Epith Cells 1 Urine Bacteria Rare Hyaline Casts < 1 Ur Culture Indicated? Not Indicated Stool Occult Blood Urine Opiates Screen Negative Urine Fentanyl Screen Negative Ur Barbiturates Screen Negative U Amphetamin/Meth Scrn Positive A U Benzodiazepines Scrn Negative U Cocaine Metab Screen Negative U Marijuana (THC) Screen Negative Urine Alcohol Negative Blood Type Antibody Screen Crossmatch Blood Bank Wristband ID 04/20/25 05:00 WBC 17.8 H D RBC 2.63 L Hgb 8.2 L Hct 24.9 L MCV 95 MCH 31.2 MCHC 32.9 RDW Std Deviation 46.7 H Plt Count 414 D Neut % (Auto) 71 Lymph % (Auto) 18 [place] % (Auto) 7 Eos % (Auto) 2 Baso % (Auto) 0 Neut # (Auto) 12.7 H Lymph # (Auto) 3.2 [place] # (Auto) 1.2 H Eos # (Auto) 0.3 Baso # (Auto) 0.1 Immature Gran # (Auto) 0.25 H Absolute Nucleated RBC 0.00 Immature Gran % 1 H Nucleated RBC % 0 PT INR APTT Sodium 143 Potassium 4.4 Chloride 107 Carbon Dioxide 25.0 Anion Gap 11 BUN 38 H Creatinine 1.1 Estim Creat Clear Calc 89.2 eGFR > 60 BUN/Creatinine Ratio 35 H Glucose 138 H Calculated Osmolality 295 Calcium 8.6 Corrected Calcium 9.2 Phosphorus 2.8 Magnesium 2.2 Total Bilirubin 0.2 L AST 10 ALT 12 Alkaline Phosphatase 63 Troponin I Total Protein 5.0 L Albumin 3.2 L D Globulin 1.8 L Albumin/Globulin Ratio 1.8 Lipase Ur Collection Type Urine Color Urine Clarity Urine pH Ur Specific [place] Urine Protein Urine Glucose (UA) Urine Ketones Urine Blood Urine Nitrite Urine Bilirubin Urine Urobilinogen (Auto) Ur Leukocyte Esterase Urine RBC Urine WBC Ur Squamous Epith Cells Urine Bacteria Hyaline Casts Ur Culture Indicated? Stool Occult Blood Urine Opiates Screen Urine Fentanyl Screen Ur Barbiturates Screen U Amphetamin/Meth Scrn U Benzodiazepines Scrn U Cocaine Metab Screen U Marijuana (THC) Screen Urine Alcohol Blood Type Antibody Screen Crossmatch Blood Bank Wristband ID Quality Measures Quality Measures none Assessment & Plan Assessment Current Active Medications: Generic Name Dose Route Start Last Admin Trade Name Freq PRN Reason Stop Dose Admin Ceftriaxone Sodium/Dextrose 1 gm in 50 mls @ 100 mls/hr 04/19/25 20:13 04/20/25 08:44 Rocephin/D5w 1gm Iv Premix IV 04/26/25 20:12 100 mls/hr QDAY YAMILETH Administration Octreotide Acetate 1,000 mcg/ 102 mls @ 5.1 mls/hr 04/20/25 16:44 Sodium Chloride IV 05/20/25 16:43 .Q20H YAMILETH Protocol 50 MCG/HR Octreotide Acetate 1,000 mcg/ 102 mls @ 5.1 mls/hr 04/19/25 20:45 04/19/25 21:27 Sodium Chloride IV 04/20/25 16:44 50 mcg/hr .Q20H YAMILETH 5.1 mls/hr Protocol Administration 50 MCG/HR Ondansetron HCl 4 mg 04/20/25 03:16 Ondansetron Inj 2 Mg/Ml Inj 2 Ml IVP 05/19/25 21:33 Q6H PRN NAUSEA OR VOMITING Protocol Pantoprazole Sodium 40 mg 04/20/25 09:00 04/20/25 08:44 Pantoprazole Inj 40 Mg Vial IVP 05/20/25 08:59 40 mg BID YAMILETH Administration Plan Mr. Ching is a 49-year-old male past medical history of hypertension, CVA on 03/2025 (on aspirin and Plavix) presented to the ED on 04/19/2025 with chief complaint of hematemesis and dark stool, on admission day 2 for acute blood loss anemia secondary to upper GI bleed. #Acute blood loss anemia secondary to upper GI bleed - Patient presented with episode of hematemesis and melena. - History of extensive alcohol use; reports cessation approximately years ago. - Clinical picture concerning for upper GI bleed. - Concern for active bleed. HgB trending down 8.2 <- 8.6 <- 10.3 <- 15.1 Plan - D/c octreotide: no concern for liver cirrhosis and vericeal bleeding, AST 10, ALT 12 - GI Dr. Brandon consulted, NPO, likely EGD today - Protonix 40 mg twice daily - D/c Ceftriaxone low risk of SBP -Zofran 4 mg for nausea - Repeat H&H -Type and screen - Transfuse if hemoglobin< 7 -Avoiding NSAIDs/ASA/chemical anticoagulation, stopped asprin and plavx - Patient is s/p CVA, will resume plavix as soon as GI clears. #Leukocytosis- improving Leukocytosis likely reactive due to GI bleed. WBC 17.8 (23.4 yesterday). - continue to monitor CBC and CMP # Essential hypertension Patient has a history of hypertension which is managed with losartan 25 mg p.o. daily - Consider resuming home meds #Hx CVA, infarct of right basal ganglia(03/2025) Discharged on Plavix 75 mg, aspirin 81 mg. -Monitor Health Maintenance: Code Status: Full DVT Prophylaxis: SCDs (holding asprin and plavix) GI Prophylaxis: Protonix Diet: NPO pending EGD Ferreira: None Lines: PIV Supplemental O2: None Disposition: Tele, waiting on EGD and GI recommendation. Patient seen and care discussed with my attending physician, Dr. Castillo and my senior residents, Dr. Nino and Dr. Fracisco Hurst, OMS-IV
[2025-04-20 12:22] LABS: Hematocrit 23.9 % (41.0-53.0)
[2025-04-20 12:30] LABS: Hemoglobin 7.9 g/dL (13.5-16.0)
--- NOTE | 2025-04-20 15:13 | PC.SS ---
Patient is alert/oriented. Patient was able to verify demographics. Patient was admitted for a gi bleed. Patient states he resides at home with is kids. Patient is independent with ADL's. No DmE. Transportation is provided by family. PCP: [facility]. Last appt. was last month. Patient is pending EGD pending. Patient had a prior stroke in March. Patient states he will return home. Alt medical decision maker: Ivana Alas, transportation: family/[facility] d/c plan: home with family
[2025-04-20 17:08] LABS: Basophils # (Auto) 0.1 Thou/mm3 (0.0-0.2); Basophils % (Auto) 0 % (0-2.5); Eosinophils # (Auto) 0.4 Thou/mm3 (0.0-0.5); Eosinophils % (Auto) 3 % (0-10); Hematocrit 24.8 % (41.0-53.0); Immature Granulocytes Auto 0.15 Thou/mm3 (0.00-0.00); Lymphocytes # (Auto) 2.4 Thou/mm3 (1.0-4.8); Lymphocytes % (Auto) 16 % (10-50); Mean Corpuscular HGB Conc 33.1 g/dl (31.0-37.0); Mean Corpuscular Hemoglobin 31.3 pg (25.0-35.0); Mean Corpuscular Volume 95 fL (80-100); Monocytes # (Auto) 0.9 Thou/mm3 (0.0-0.8); Monocytes % (Auto) 6 % (0-12); Neutrophils # (Auto) 10.9 Thou/mm3 (1.8-7.7); Neutrophils % (Auto) 74 % (37-80); Nucleated Red Blood Cell # 0.00 Thou/mm3 (0.00-0.00); Nucleated Red Blood Cell % 0 /100 WBC (0); Platelet Count 424 Thou/mm3 (140-440); RDW Standard Deviation 47.1 fL (35.1-43.9); Red Blood Count 2.62 Miln/mm3 (4.50-5.90); White Blood Count 14.8 Thou/mm3 (3.8-10.6)
[2025-04-20 17:20] LABS: Hemoglobin 8.2 g/dL (13.5-16.0)
[2025-04-20] MEDS: EPINEPHrine INJ 0.1 MG/ML SYRINGE 10ML 1 MG SUBMUCOSAL (18:30)
--- NOTE | 2025-04-20 18:41 | SUR.PHASEI ---
1841: pt received from OR [facility] received report from CHAS Huggins. pt drifts back to sleep but arousable when called his name. no s/s of resp. distress or discomfort. no s/s of pain or discomfort.
--- NOTE | 2025-04-20 19:06 | SUR.PHASEI ---
1905: report given to CHAS Cunningham.
--- NOTE | 2025-04-20 19:12 | SUR.PHASEI ---
1911: pt transferred back to room 268. pt alert and oriented. no s/s of resp. distress or discomfort. no s/s of pain or discomfort.
[2025-04-21] VITALS (10 sets, daily range): BP systolic 116–137; BP diastolic 71–99; PULSE 69–91; RESP 15–20; TEMP 36.2–36.9; O2SAT 94–98; BMI 26.0
[2025-04-21 05:57] LABS: Basophils # (Auto) 0.0 Thou/mm3 (0.0-0.2); Basophils % (Auto) 0 % (0-2.5); Eosinophils # (Auto) 0.4 Thou/mm3 (0.0-0.5); Eosinophils % (Auto) 3 % (0-10); Hematocrit 23.1 % (41.0-53.0); Immature Granulocytes Auto 0.14 Thou/mm3 (0.00-0.00); Lymphocytes # (Auto) 3.0 Thou/mm3 (1.0-4.8); Lymphocytes % (Auto) 18 % (10-50); Mean Corpuscular HGB Conc 32.0 g/dl (31.0-37.0); Mean Corpuscular Hemoglobin 30.7 pg (25.0-35.0); Mean Corpuscular Volume 96 fL (80-100); Monocytes # (Auto) 1.0 Thou/mm3 (0.0-0.8); Monocytes % (Auto) 6 % (0-12); Neutrophils # (Auto) 11.8 Thou/mm3 (1.8-7.7); Neutrophils % (Auto) 72 % (37-80); Nucleated Red Blood Cell # 0.00 Thou/mm3 (0.00-0.00); Nucleated Red Blood Cell % 0 /100 WBC (0); Platelet Count 452 Thou/mm3 (140-440); RDW Standard Deviation 46.6 fL (35.1-43.9); Red Blood Count 2.41 Miln/mm3 (4.50-5.90); White Blood Count 16.4 Thou/mm3 (3.8-10.6)
[2025-04-21 06:03] LABS: Hemoglobin 7.4 g/dL (13.5-16.0)
[2025-04-21 06:30] LABS: Albumin, Serum 3.2 gm/dL (3.5-5.0); Albumin/Globulin Ratio 1.6 (1.2-2.2); Alkaline Phosphatase 65 U/L (46-116); Anion Gap 9 (7-16); Aspartate Amino Transferase < 8 U/L (0-34); BUN/Creatinine Ratio 20 Ratio (12-20); Bilirubin,Total 0.2 mg/dL (0.3-1.2); Blood Urea Nitrogen 20 mg/dL (9-23); Calcium 8.6 mg/dL (8.3-10.6); Calcium (Corrected) 9.2 mg/dL (8.5-10.1); Carbon Dioxide 28.3 mMol/L (20.0-31.0); Chloride 106 mMol/L (98-107); Creatinine (Component) 1.0 mg/dL (0.6-1.3); Estimated Creatinine Clearance 98.1 mL/min (>60); Globulin 2.0 gm/dL (2.3-3.5); Glucose 92 mg/dL (74-106); Magnesium 1.9 mg/dL (1.6-2.6); Osmolality,Calculated 287 (275-295); Phosphorous 3.1 mg/dL (2.4-5.1); Potassium 4.0 mMol/L (3.4-5.1); Sodium 143 mMol/L (136-145); Total Protein 5.2 gm/dL (5.7-8.2); eGFR > 60 See Note
[2025-04-21 06:31] LABS: Alanine Aminotransferase 9 U/L (10-49)
--- NOTE | 2025-04-21 09:23 | ESPR_ITS ---
<Statement entered by Grupo Castillo MD - 04/26/25 07:13> I reviewed above note and agree with findings and plans. I have also personally examined the patient with medicine team and went over assessment and plan with medical team including industrial design intern and resident physician. <Statement entered by Paul Chen MD - 04/21/25 16:52> No acute overnight events. Seen and examined at bedside and patient resting comfortably in bed. Underwent EGD and found esophageal ulcers, Anna-Malhotra tears that were treated with bipolar cautery and clips. Discussed case with GI and safe to resume dual antiplatelet therapy and if he can tolerate his diet then cleared from GI perspective to be discharged tomorrow. ----- Note reviewed and agree with care plan as documented. Please refer to the note below for further details. Plan discussed with attending physician Dr. Jonathan Chen MD PGY-2 Internal Medicine Documentation for date of: 04/21/25 Subjective Subjective Interval history: 49-year-old male past medical history of hypertension, CVA on 03/2025 (on aspirin and Plavix) presented to the ED on 04/19/2025 with chief complaint of hematemesis and dark stool, on admission day 3 for acute blood loss anemia secondary to upper GI bleed. [place] (04/20/25) EGD was done: Esophageal ulcers, Anna Malhotra tears (injected, treated with bipolar cautery. Clip placed). Gastritis. Normal duodenum. No acute events overnight. Patient was seen at bedside today morning, resting comfortably in the bed, eating jello. Patient reports he feels well, and slept fine. Discussed EGD results with patient, demonstrates good understanding. Exam Vital Signs Temp Pulse Resp BP Pulse Ox O2 Del Method O2 Flow Rate 97.2 F 89 20 116/73 94 L Room Air 3 04/21/25 08:00 04/21/25 08:00 04/21/25 08:00 04/21/25 08:00 04/21/25 08:00 04/21/25 08:00 04/20/25 18:35 Narrative Exam General: Patient is fully alert and oriented. In no acute distress. Cardio: RRR, no mumurs, gallops or rubs appreciated. Resp: Normal lung sounds, no rales, wheezing, or stridor. MSK: Low back pain when patient asked to sit, no other muscle or joint pain. GI: No abdomen distension, no tenderness to palpation in all quadrants, soft to palpation. Extremities: No presence of trace or pitting edema in lower extremities bilaterally, dorsalis pedis pulses +2 bilaterally. RLE medial malleolus skin desquamation (looks like psoriasis). Neuro: AAOx3, no focal motor or sensory deficits in the UE or LE bilat Psych: Good judgement, thought and behavior. Cooperative Objective Labs 04/21/25 16:00 04/21/25 05:15 Labs: Laboratory Results - last 24 hr 04/20/25 04/20/25 04/21/25 12:00 16:59 05:15 WBC 14.8 H 16.4 H RBC 2.62 L 2.41 L Hgb 7.9 L 8.2 L 7.4 L Hct 23.9 L 24.8 L 23.1 L MCV 95 96 MCH 31.3 30.7 MCHC 33.1 32.0 RDW Std Deviation 47.1 H 46.6 H Plt Count 424 452 H Neut % (Auto) 74 72 Lymph % (Auto) 16 18 [place] % (Auto) 6 6 Eos % (Auto) 3 3 Baso % (Auto) 0 0 Neut # (Auto) 10.9 H 11.8 H Lymph # (Auto) 2.4 3.0 [place] # (Auto) 0.9 H 1.0 H Eos # (Auto) 0.4 0.4 Baso # (Auto) 0.1 0.0 Immature Gran # (Auto) 0.15 H 0.14 H Absolute Nucleated RBC 0.00 0.00 Immature Gran % 1 H 1 H Nucleated RBC % 0 0 Sodium 143 Potassium 4.0 Chloride 106 Carbon Dioxide 28.3 Anion Gap 9 BUN 20 Creatinine 1.0 Estim Creat Clear Calc 98.1 eGFR > 60 BUN/Creatinine Ratio 20 Glucose 92 Calculated Osmolality 287 Calcium 8.6 Corrected Calcium 9.2 Phosphorus 3.1 Magnesium 1.9 Total Bilirubin 0.2 L AST < 8 ALT 9 L Alkaline Phosphatase 65 Total Protein 5.2 L Albumin 3.2 L Globulin 2.0 L Albumin/Globulin Ratio 1.6 Quality Measures Quality Measures none Assessment & Plan Assessment Current Active Medications: Generic Name Dose Route Start Last Admin Trade Name Freq PRN Reason Stop Dose Admin Ondansetron HCl 4 mg 04/20/25 03:16 Ondansetron Inj 2 Mg/Ml Inj 2 Ml IVP 05/19/25 21:33 Q6H PRN NAUSEA OR VOMITING Protocol Pantoprazole Sodium 40 mg 04/20/25 09:00 04/21/25 08:15 Pantoprazole Inj 40 Mg Vial IVP 05/20/25 08:59 40 mg BID YAMILETH Administration Plan Mr. Ching is a 49-year-old male past medical history of hypertension, CVA on 03/2025 (on aspirin and Plavix) presented to the ED on 04/19/2025 with chief complaint of hematemesis and dark stool, on admission day 3 for acute blood loss anemia secondary to upper GI bleed. #Acute blood loss anemia secondary to upper GI bleed - Patient presented with episode of hematemesis and melena. - History of extensive alcohol use; reports cessation approximately about 2 years ago. - Clinical picture concerning for upper GI bleed. - Concern for active bleed. HgB trending down 7.4 < 8.2 <- 8.6 <- 10.3 <- 15.1 - EGD (04/21/25): Esophageal ulcers, Anna Malhotra tears (injected, treated with bipolar cautery. Clip placed). Gastritis. Normal duodenum. - D/c octreotide: no concern for liver cirrhosis and vericeal bleeding, AST 10, ALT 12 - D/c Ceftriaxone low risk of SBP Plan - GI (Dr. Brandon) onboard - Anna Malhotra tears treated with cautery and clipped. - Per GI, safe to resume aspirin and Plavix - Protonix 40 mg twice daily - Zofran 4 mg PRN for nausea - Monitor daily CBC and CMP - Transfuse if hemoglobin< 7 - Clear liquid diet, advance as tolerated. #Hx CVA, infarct of right basal ganglia(03/2025) Discharged on Plavix 75 mg, aspirin 81 mg. - Resumed Plavix and asprin - Resumed home atorvastatin #Leukocytosis- stable Leukocytosis likely reactive due to GI bleed. WBC 16.4 (23.4 on arrival). - continue to monitor CBC and CMP #Essential hypertension- stable Patient has a history of hypertension which is managed with losartan 25 mg p.o. daily - Consider resuming home meds Health Maintenance: Code Status: Full DVT Prophylaxis: SCDs (holding asprin and plavix) GI Prophylaxis: Protonix Diet: Clear liquid diet Ferreira: None Lines: PIV Supplemental O2: None Disposition: Tele, monitoring CBC, discharge if CBC stabalizes Patient seen and care discussed with my attending physician, Dr. Castillo and my senior resident, Dr. Fracisco Chen. Nicole Hurst, OMS-IV
--- NOTE | 2025-04-21 14:58 | PC.SS ---
Rounding: Pending Dr. Brandon reccs, DC plan home
[2025-04-21 16:47] LABS: Basophils # (Auto) 0.0 Thou/mm3 (0.0-0.2); Basophils % (Auto) 0 % (0-2.5); Eosinophils # (Auto) 0.3 Thou/mm3 (0.0-0.5); Eosinophils % (Auto) 2 % (0-10); Hematocrit 21.9 % (41.0-53.0); Immature Granulocytes Auto 0.07 Thou/mm3 (0.00-0.00); Lymphocytes # (Auto) 2.5 Thou/mm3 (1.0-4.8); Lymphocytes % (Auto) 18 % (10-50); Mean Corpuscular HGB Conc 32.9 g/dl (31.0-37.0); Mean Corpuscular Hemoglobin 31.2 pg (25.0-35.0); Mean Corpuscular Volume 95 fL (80-100); Monocytes # (Auto) 1.0 Thou/mm3 (0.0-0.8); Monocytes % (Auto) 7 % (0-12); Neutrophils # (Auto) 9.6 Thou/mm3 (1.8-7.7); Neutrophils % (Auto) 71 % (37-80); Nucleated Red Blood Cell # 0.00 Thou/mm3 (0.00-0.00); Nucleated Red Blood Cell % 0 /100 WBC (0); Platelet Count 406 Thou/mm3 (140-440); RDW Standard Deviation 45.6 fL (35.1-43.9); Red Blood Count 2.31 Miln/mm3 (4.50-5.90); White Blood Count 13.5 Thou/mm3 (3.8-10.6)
[2025-04-21 16:50] LABS: Hemoglobin 7.2 g/dL (13.5-16.0)
--- NOTE | 2025-04-21 18:46 | PD.IMPROG ---
Documentation for date of: 04/21/25 Subjective Subjective Interval history: Status post endoscopic intervention for bleeding Anna-Malhotra tear large along with distal esophageal ulcers Hemoglobin hematocrit are normal at 7.2 and 21.9 point Exam Vital Signs Temp Pulse Resp BP Pulse Ox O2 Del Method O2 Flow Rate 97.8 F 74 18 137/74 H 96 Room Air 3 04/21/25 12:00 04/21/25 16:21 04/21/25 12:00 04/21/25 12:00 04/21/25 12:00 04/21/25 08:15 04/20/25 18:35 Objective Labs 04/21/25 16:00 04/21/25 05:15 Labs: Laboratory Results - last 24 hr 04/21/25 04/21/25 05:15 16:00 WBC 16.4 H 13.5 H RBC 2.41 L 2.31 L Hgb 7.4 L 7.2 L Hct 23.1 L 21.9 L* MCV 96 95 MCH 30.7 31.2 MCHC 32.0 32.9 RDW Std Deviation 46.6 H 45.6 H Plt Count 452 H 406 D Neut % (Auto) 72 71 Lymph % (Auto) 18 18 [place] % (Auto) 6 7 Eos % (Auto) 3 2 Baso % (Auto) 0 0 Neut # (Auto) 11.8 H 9.6 H Lymph # (Auto) 3.0 2.5 [place] # (Auto) 1.0 H 1.0 H Eos # (Auto) 0.4 0.3 Baso # (Auto) 0.0 0.0 Immature Gran # (Auto) 0.14 H 0.07 H Absolute Nucleated RBC 0.00 0.00 Immature Gran % 1 H 1 H Nucleated RBC % 0 0 Sodium 143 Potassium 4.0 Chloride 106 Carbon Dioxide 28.3 Anion Gap 9 BUN 20 Creatinine 1.0 Estim Creat Clear Calc 98.1 eGFR > 60 BUN/Creatinine Ratio 20 Glucose 92 Calculated Osmolality 287 Calcium 8.6 Corrected Calcium 9.2 Phosphorus 3.1 Magnesium 1.9 Total Bilirubin 0.2 L AST < 8 ALT 9 L Alkaline Phosphatase 65 Total Protein 5.2 L Albumin 3.2 L Globulin 2.0 L Albumin/Globulin Ratio 1.6 Impressions Impression: Bleeding Anna-Malhotra tear along with ulceration requiring endoscopic intervention with epinephrine injection bipolar gold heater probe and placement of Endo Clip Advance diet If the hemoglobin hematocrit stable tomorrow patient can be discharged home on a PPI Assessment & Plan A&P Narrative # Hematemesis # Melena Plan IV Protonix Serial CBC Transfuse PRBC if the hemoglobin drops below 7 g Aspirin and Plavix Hold off Consent obtained for fiberoptic esophagogastroduodenoscopy with possible biopsy possible therapeutic intervention under intravenous moderate sedation EGD other medical problems include Essential hypertension CVA on aspirin and Plavix Thank you very much for the opportunity to participate in the care of this patient Time Spent With Patient Time: Total time spent is greater than 50% in coordination of care (as documented) at patient's floor/unit and/or counseling patient:
[2025-04-22] VITALS (7 sets, daily range): BP systolic 116–135; BP diastolic 54–81; PULSE 76–92; RESP 16–21; TEMP 36.3–36.8; O2SAT 94–96
[2025-04-22 06:21] LABS: Basophils # (Auto) 0.0 Thou/mm3 (0.0-0.2); Basophils % (Auto) 0 % (0-2.5); Eosinophils # (Auto) 0.3 Thou/mm3 (0.0-0.5); Eosinophils % (Auto) 2 % (0-10); Hematocrit 22.7 % (41.0-53.0); Immature Granulocytes Auto 0.11 Thou/mm3 (0.00-0.00); Lymphocytes # (Auto) 2.5 Thou/mm3 (1.0-4.8); Lymphocytes % (Auto) 18 % (10-50); Mean Corpuscular HGB Conc 33.0 g/dl (31.0-37.0); Mean Corpuscular Hemoglobin 31.4 pg (25.0-35.0); Mean Corpuscular Volume 95 fL (80-100); Monocytes # (Auto) 0.9 Thou/mm3 (0.0-0.8); Monocytes % (Auto) 7 % (0-12); Neutrophils # (Auto) 10.3 Thou/mm3 (1.8-7.7); Neutrophils % (Auto) 73 % (37-80); Nucleated Red Blood Cell # 0.00 Thou/mm3 (0.00-0.00); Nucleated Red Blood Cell % 0 /100 WBC (0); Platelet Count 488 Thou/mm3 (140-440); RDW Standard Deviation 44.8 fL (35.1-43.9); Red Blood Count 2.39 Miln/mm3 (4.50-5.90); White Blood Count 14.1 Thou/mm3 (3.8-10.6)
[2025-04-22 06:29] LABS: Hemoglobin 7.5 g/dL (13.5-16.0)
[2025-04-22 07:59] LABS: Alanine Aminotransferase 10 U/L (10-49); Albumin, Serum 3.5 gm/dL (3.5-5.0); Anion Gap 10 (7-16); Aspartate Amino Transferase 12 U/L (0-34); BUN/Creatinine Ratio 12 Ratio (12-20); Bilirubin,Total 0.3 mg/dL (0.3-1.2); Blood Urea Nitrogen 12 mg/dL (9-23); Calcium 8.8 mg/dL (8.3-10.6); Calcium (Corrected) 9.2 mg/dL (8.5-10.1); Carbon Dioxide 27.2 mMol/L (20.0-31.0); Chloride 105 mMol/L (98-107); Creatinine (Component) 1.0 mg/dL (0.6-1.3); Estimated Creatinine Clearance 98.1 mL/min (>60); Glucose 96 mg/dL (74-106); Magnesium 1.8 mg/dL (1.6-2.6); Osmolality,Calculated 282 (275-295); Phosphorous 3.2 mg/dL (2.4-5.1); Potassium 3.9 mMol/L (3.4-5.1); Sodium 142 mMol/L (136-145); Total Protein 5.7 gm/dL (5.7-8.2); eGFR > 60 See Note
[2025-04-22 08:00] LABS: Albumin/Globulin Ratio 1.6 (1.2-2.2); Alkaline Phosphatase 69 U/L (46-116); Globulin 2.2 gm/dL (2.3-3.5)
[2025-04-22] MEDS: CLOPIDOGREL BISULFATE 75 MG TABLET PO (08:38)
[2025-04-22] MEDS: ATORVASTATIN CALCIUM 20 MG TABLET 80 MG PO (08:38)
[2025-04-22] MEDS: ASPIRIN EC 81 MG TABEC PO (08:38)
[2025-04-22] MEDS: LOSARTAN POTASSIUM 25 MG TABLET PO (10:47)
[2025-04-22] MEDS: Magnesium Sulfate 2 GM Ivpb 2 GM/50 ML BAG IV (10:47)
[2025-04-22] MEDS: IRON SUCROSE CPLX INJ 20 MG/ML VIAL 5 ML 200 MG IVP (11:03)
--- NOTE | 2025-04-22 17:06 | ESPR_ITS ---
<Statement entered by Grupo Castillo MD - 04/26/25 14:17> I reviewed above note and agree with findings and plans. I have also personally examined the patient with medicine team and went over assessment and plan with medical team including policy intern and resident physician. <Statement entered by Gopal Nino MD - 04/23/25 08:03> Patient examined and case discussed with the team including attending physician. Note reviewed, I agree with the care plan as documented. Please refer to the note below for further details. - Gopal Nino MD, PGY 3 Disclaimer: The document may contain phonetic/typographic errors due to voice recognition software. These errors are purely due to imperfections in the software program. Documentation for date of: 04/22/25 Subjective Subjective Interval history: No overnight events. H&H and vitals stable. Will check H&H tomorrow and anticipate discharge then. Will resume regular diet. Exam Vital Signs Temp Pulse Resp BP Pulse Ox O2 Del Method O2 Flow Rate 98.3 F 90 17 116/72 96 Room Air 3 04/22/25 16:00 04/22/25 16:00 04/22/25 16:00 04/22/25 16:00 04/22/25 16:00 04/22/25 16:00 04/20/25 18:35 Narrative Exam General: Awake and in no acute distress. Conversational and non-toxic appearing. Neurologic: GCS 15. Alert and oriented x3, no gross neurological deficit, and patient able to move all 4 extremities. HEENT: Normocephalic, atraumatic, mucous membranes moist. Pupils reactive to light. Heart: Regular rate and rhythm, normal S1 and S2, no murmurs. Lungs: Clear to auscultation bilaterally with no wheezing or crackles. Abdomen: Soft, nondistended, nontender, positive bowel sounds. No guarding or rebound tenderness. Extremities: Right lower extremity medial malleolus skin disclamation, possibly psoriasis. No edema. 2+ radial and dorsalis pedis pulses bilaterally. Skin: Warm. Dry. No rash or ecchymoses. Objective Labs 04/22/25 05:45 04/22/25 05:45 Labs: Laboratory Results - last 24 hr 04/22/25 05:45 WBC 14.1 H RBC 2.39 L Hgb 7.5 L Hct 22.7 L MCV 95 MCH 31.4 MCHC 33.0 RDW Std Deviation 44.8 H Plt Count 488 H D Neut % (Auto) 73 Lymph % (Auto) 18 [place] % (Auto) 7 Eos % (Auto) 2 Baso % (Auto) 0 Neut # (Auto) 10.3 H Lymph # (Auto) 2.5 [place] # (Auto) 0.9 H Eos # (Auto) 0.3 Baso # (Auto) 0.0 Immature Gran # (Auto) 0.11 H Absolute Nucleated RBC 0.00 Immature Gran % 1 H Nucleated RBC % 0 ESR Cancelled Sodium 142 Potassium 3.9 Chloride 105 Carbon Dioxide 27.2 Anion Gap 10 BUN 12 Creatinine 1.0 Estim Creat Clear Calc 98.1 eGFR > 60 BUN/Creatinine Ratio 12 Glucose 96 Calculated Osmolality 282 Calcium 8.8 Corrected Calcium 9.2 Phosphorus 3.2 Magnesium 1.8 Total Bilirubin 0.3 AST 12 ALT 10 Alkaline Phosphatase 69 Total Protein 5.7 Albumin 3.5 Globulin 2.2 L Albumin/Globulin Ratio 1.6 Quality Measures Quality Measures none Assessment & Plan Assessment Current Active Medications: Generic Name Dose Route Start Last Admin Trade Name Freq PRN Reason Stop Dose Admin Aspirin 81 mg 04/22/25 09:00 04/22/25 08:38 Aspirin Ec 81 Mg Tabec PO 05/22/25 08:59 81 mg QDAY YAMILETH Administration Atorvastatin Calcium 80 mg 04/22/25 09:00 04/22/25 08:38 Atorvastatin Calcium 20 Mg Tablet PO 05/22/25 08:59 80 mg QDAY YAMILETH Administration Clopidogrel Bisulfate 75 mg 04/22/25 09:00 04/22/25 08:38 Clopidogrel Bisulfate 75 Mg Tablet PO 05/22/25 08:59 75 mg QDAY YAMILETH Administration Iron Sucrose 200 mg 04/22/25 09:55 04/22/25 11:03 Iron Sucrose Cplx Inj 20 Mg/Ml Vial 5 Ml IVP 04/26/25 09:01 200 mg DAILY YAMILETH Administration Losartan Potassium 25 mg 04/22/25 10:00 04/22/25 10:47 Losartan Potassium 25 Mg Tablet PO 05/22/25 09:59 25 mg QDAY YAMILETH Administration Ondansetron HCl 4 mg 04/20/25 03:16 Ondansetron Inj 2 Mg/Ml Inj 2 Ml IVP 05/19/25 21:33 Q6H PRN NAUSEA OR VOMITING Protocol Pantoprazole Sodium 40 mg 04/20/25 09:00 04/22/25 08:38 Pantoprazole Inj 40 Mg Vial IVP 05/20/25 08:59 40 mg BID YAMILETH Administration Plan Mr. Ching is a 49-year-old male past medical history of hypertension, CVA on 03/2025 (on aspirin and Plavix) presented to the ED on 04/19/2025 with chief complaint of hematemesis and dark stool, on admission day 3 for acute blood loss anemia secondary to upper GI bleed. #Acute blood loss anemia secondary to upper GI bleed - Patient presented with episode of hematemesis and melena. - History of extensive alcohol use; reports cessation approximately about 2 years ago. - Clinical picture concerning for upper GI bleed. - There was concern for active bleed. HgB trended down 7.4 < 8.2 <- 8.6 <- 10.3 <- 15.1, currently 7.5 and stable - EGD (04/21/25): Esophageal ulcers, Anna Malhotra tears (injected, treated with bipolar cautery. Clip placed). Gastritis. Normal duodenum. - D/c octreotide: no concern for liver cirrhosis and vericeal bleeding, AST 10, ALT 12 - D/c Ceftriaxone low risk of SBP Plan - GI (Dr. Brandon) onboard - Anna Malhotra tears treated with cautery and clipped. - Per GI, safe to resume aspirin and Plavix - Protonix 40 mg twice daily - Zofran 4 mg PRN for nausea - Monitor daily CBC and CMP - Transfuse if hemoglobin< 7 - Regular diet - MiraLAX 1 packet ordered #Hx CVA, infarct of right basal ganglia(03/2025) Discharged on Plavix 75 mg, aspirin 81 mg. Plan - Resumed Plavix and asprin - Resumed home atorvastatin #Leukocytosis- stable Leukocytosis likely reactive due to GI bleed. WBC 23.4 on arrival. Downtrended to 14.1 Plan: - continue to monitor CBC and CMP #Essential hypertension- stable Patient has a history of hypertension which is managed with losartan 25 mg p.o. daily Plan: - Resumed home losartan Health Maintenance: Code Status: Full DVT Prophylaxis: Aspirin, Plavix Diet: Regular diet Ferreira: None Lines: PIV Supplemental O2: None Disposition: Tele, monitoring CBC, pending H&H is stable and patient has a bowel movement, anticipate discharge tomorrow. Patient was seen and discussed with my attending physician Dr. Castillo and my senior resident Dr. Gopal Nino MD PGY-3. Leon Merida DO PGY-1.
[2025-04-22] MEDS: POLYETHYLENE GLYCOL 17 GM PACKET PO (18:22)
--- NOTE | 2025-04-22 20:22 | PD.IMPROG ---
Documentation for date of: 04/22/25 Subjective Subjective Interval history: Hemoglobin Mattock at 7.5 and 22.7 Status post repair of a large Anna-Malhotra tear with epinephrine injection bipolar gold heater probe and placement of endoclips Exam Vital Signs Temp Pulse Resp BP Pulse Ox O2 Del Method O2 Flow Rate 98.3 F 90 17 116/72 96 Room Air 3 04/22/25 16:00 04/22/25 16:00 04/22/25 16:00 04/22/25 16:00 04/22/25 16:00 04/22/25 16:00 04/20/25 18:35 Objective Labs 04/22/25 05:45 04/22/25 05:45 Labs: Laboratory Results - last 24 hr 04/19/25 04/22/25 18:18 05:45 WBC 14.1 H RBC 2.39 L Hgb 7.5 L Hct 22.7 L MCV 95 MCH 31.4 MCHC 33.0 RDW Std Deviation 44.8 H Plt Count 488 H D Neut % (Auto) 73 Lymph % (Auto) 18 [place] % (Auto) 7 Eos % (Auto) 2 Baso % (Auto) 0 Neut # (Auto) 10.3 H Lymph # (Auto) 2.5 [place] # (Auto) 0.9 H Eos # (Auto) 0.3 Baso # (Auto) 0.0 Immature Gran # (Auto) 0.11 H Absolute Nucleated RBC 0.00 Immature Gran % 1 H Nucleated RBC % 0 ESR Cancelled Sodium 142 Potassium 3.9 Chloride 105 Carbon Dioxide 27.2 Anion Gap 10 BUN 12 Creatinine 1.0 Estim Creat Clear Calc 98.1 eGFR > 60 BUN/Creatinine Ratio 12 Glucose 96 Calculated Osmolality 282 Calcium 8.8 Corrected Calcium 9.2 Phosphorus 3.2 Magnesium 1.8 Total Bilirubin 0.3 AST 12 ALT 10 Alkaline Phosphatase 69 Total Protein 5.7 Albumin 3.5 Globulin 2.2 L Albumin/Globulin Ratio 1.6 Crossmatch See Detail Impressions Impression: Large Anna-Malhotra tear status post endoscopic intervention Advance diet Assessment & Plan A&P Narrative # Hematemesis # Melena Plan IV Protonix Serial CBC Transfuse PRBC if the hemoglobin drops below 7 g Aspirin and Plavix Hold off Consent obtained for fiberoptic esophagogastroduodenoscopy with possible biopsy possible therapeutic intervention under intravenous moderate sedation EGD other medical problems include Essential hypertension CVA on aspirin and Plavix Thank you very much for the opportunity to participate in the care of this patient Time Spent With Patient Time: Total time spent is greater than 50% in coordination of care (as documented) at patient's floor/unit and/or counseling patient:
[2025-04-23] VITALS (8 sets, daily range): BP systolic 104–142; BP diastolic 67–90; PULSE 70–94; RESP 18–20; TEMP 36.1–36.8; O2SAT 96–100; BMI 26.6
[2025-04-23] MEDS: ASPIRIN EC 81 MG TABEC PO (10:07)
[2025-04-23] MEDS: ATORVASTATIN CALCIUM 20 MG TABLET 80 MG PO (10:07)
[2025-04-23] MEDS: LOSARTAN POTASSIUM 25 MG TABLET PO (10:08)
[2025-04-23] MEDS: IRON SUCROSE CPLX INJ 20 MG/ML VIAL 5 ML 200 MG IVP (10:09)
[2025-04-23] MEDS: CLOPIDOGREL BISULFATE 75 MG TABLET PO (10:10)
--- NOTE | 2025-04-23 10:47 | PD.RESDS ---
Planned Discharge Date 04/23/25 DS: Providers Provider Date of admission: 04/19/25 21:30 Primary care physician: Physician No Primary/Family Admitting Provider: Janet Chaudhary MD Attending Provider on Admission: Grupo Castillo MD Consults: 04/19/25 17:57 Consult to Gastroenterology Stat Comment: Consulting Provider: Shannan Brandon Attending Provider on DC: Rosa Isela Hernandez Discharging Provider: Rosa Isela Hernandez Hospital Course Hospital Course Hospital course: Hemoglobin Mattock at 7.5 and 22.7 Status post repair of a large Anna-Malhotra tear with epinephrine injection bipolar gold heater probe and placement of endoclips Time Spent with Patient Time attestation: Total time spent providing and/or coordinating discharge services: Exam Vital Signs Temp Pulse Resp BP Pulse Ox O2 Del Method O2 Flow Rate 97.3 F 78 18 129/87 H 98 Room Air 3 04/23/25 07:47 04/23/25 10:08 04/23/25 07:47 04/23/25 10:08 04/23/25 07:47 04/23/25 07:47 04/20/25 18:35 Discharge Plan Prescriptions/Referrals Prescriptions/Med Rec: No Action aspirin 81 mg capsule 81 mg PO QDAY Qty: 30 0RF clopidogrel [Plavix] 75 mg tablet 75 mg PO QDAY Qty: 30 0RF atorvastatin 80 mg tablet 80 mg PO QDAY Qty: 30 0RF losartan 25 mg tablet 25 mg PO QDAY Qty: 30 0RF Referrals: No Primary/Family,Physician [Primary Care Provider] Patient/Caregiver Discharge Instructions Print Language: Angolan Discharge Order Discharge Orders: Discharge (Routine); Ordered 04/23/25 Ordered By: Paul Chen
[2025-04-23 11:00] LABS: Basophils # (Auto) 0.0 Thou/mm3 (0.0-0.2); Basophils % (Auto) 0 % (0-2.5); Eosinophils # (Auto) 0.2 Thou/mm3 (0.0-0.5); Eosinophils % (Auto) 1 % (0-10); Hematocrit 24.0 % (41.0-53.0); Immature Granulocytes Auto 0.09 Thou/mm3 (0.00-0.00); Lymphocytes # (Auto) 2.0 Thou/mm3 (1.0-4.8); Lymphocytes % (Auto) 12 % (10-50); Mean Corpuscular HGB Conc 32.9 g/dl (31.0-37.0); Mean Corpuscular Hemoglobin 31.3 pg (25.0-35.0); Mean Corpuscular Volume 95 fL (80-100); Monocytes # (Auto) 1.1 Thou/mm3 (0.0-0.8); Monocytes % (Auto) 7 % (0-12); Neutrophils # (Auto) 13.1 Thou/mm3 (1.8-7.7); Neutrophils % (Auto) 79 % (37-80); Nucleated Red Blood Cell # 0.00 Thou/mm3 (0.00-0.00); Nucleated Red Blood Cell % 0 /100 WBC (0); Platelet Count 500 Thou/mm3 (140-440); RDW Standard Deviation 45.6 fL (35.1-43.9); Red Blood Count 2.52 Miln/mm3 (4.50-5.90); White Blood Count 16.6 Thou/mm3 (3.8-10.6)
[2025-04-23 11:09] LABS: Hemoglobin 7.9 g/dL (13.5-16.0)
[2025-04-23] MEDS: RINGERS LACTATED 1000 ML 1,000 ML 999 ML IV (11:55)
[2025-04-23] MEDS: POLYETHYLENE GLYCOL 17 GM PACKET PO (14:20)
[2025-04-23 15:11] LABS: Basophils # (Auto) 0.1 Thou/mm3 (0.0-0.2); Basophils % (Auto) 0 % (0-2.5); Eosinophils # (Auto) 0.2 Thou/mm3 (0.0-0.5); Eosinophils % (Auto) 1 % (0-10); Hematocrit 22.9 % (41.0-53.0); Immature Granulocytes Auto 0.10 Thou/mm3 (0.00-0.00); Lymphocytes # (Auto) 2.0 Thou/mm3 (1.0-4.8); Lymphocytes % (Auto) 12 % (10-50); Mean Corpuscular HGB Conc 32.8 g/dl (31.0-37.0); Mean Corpuscular Hemoglobin 30.9 pg (25.0-35.0); Mean Corpuscular Volume 94 fL (80-100); Monocytes # (Auto) 1.4 Thou/mm3 (0.0-0.8); Monocytes % (Auto) 8 % (0-12); Neutrophils # (Auto) 13.8 Thou/mm3 (1.8-7.7); Neutrophils % (Auto) 79 % (37-80); Nucleated Red Blood Cell # 0.00 Thou/mm3 (0.00-0.00); Nucleated Red Blood Cell % 0 /100 WBC (0); Platelet Count 536 Thou/mm3 (140-440); RDW Standard Deviation 45.0 fL (35.1-43.9); Red Blood Count 2.43 Miln/mm3 (4.50-5.90); White Blood Count 17.5 Thou/mm3 (3.8-10.6)
[2025-04-23 15:17] LABS: Hemoglobin 7.5 g/dL (13.5-16.0)
--- NOTE | 2025-04-23 16:09 | ESPR_ITS ---
<Statement entered by Grupo Castillo MD - 04/26/25 14:18> I reviewed above note and agree with findings and plans. I have also personally examined the patient with medicine team and went over assessment and plan with medical team including sport internship and resident physician. <Statement entered by Paul Chen MD - 04/23/25 17:51> No acute overnight events. Seen and examined at bedside resting comfortably in bed. Vital signs stable, hemoglobin stable, however noted increasing WBC. Repeat CBC throughout day continue to show increasing leukocytosis. At this time we will start IV antibiotics and continue to monitor. He denies any dysuria, hematuria, abdominal pain, SOB, cough, or sore throat. Repeat CXR showed no pneumonia. ----- Note reviewed and agree with care plan as documented. Please refer to the note below for further details. Plan discussed with attending physician Dr. Jonathan Chen MD PGY-2 Internal Medicine Documentation for date of: 04/23/25 Subjective Subjective Interval history: 49-year-old male past medical history of hypertension, CVA on 03/2025 (on aspirin and Plavix) presented to the ED on 04/19/2025 with chief complaint of hematemesis and dark stool, on admission day 5 for acute blood loss anemia secondary to upper GI bleed. Stay is currently complicated by leukocytosis. No acute overnight events. Patient was seen at bedside today morning. Patient was walking in the room and then sitting in the chair. Patient was fully alert, oriented, and in no distress. Patient notes that he lives with his 4 daughters at home and has good support. Later in the day patient reported that he had a bowel moment (first in last 4-5 days). Patient had leukocytosis 16.6, recheck post 1L LR was 17.5. Exam Vital Signs Temp Pulse Resp BP Pulse Ox O2 Del Method O2 Flow Rate 97.0 F 79 18 142/86 H 100 Room Air 3 04/23/25 12:04/23/25 12:04/23/25 12:04/23/25 12:04/23/25 12:04/23/25 12:04/20/25 18:35 Narrative Exam General: Patient is fully alert and oriented. In no acute distress. Cardio: RRR, no mumurs, gallops or rubs appreciated. Resp: Normal lung sounds, no rales, wheezing, or stridor. MSK/extremities: No muscle or joint pain on movement. No presence of trace or pitting edema in lower extremities bilaterally, dorsalis pedis pulses +2 bilaterally. RLE medial malleolus skin desquamation (looks like psoriasis). GI: No abdomen distension, no tenderness to palpation in all quadrants, soft to palpation. Neuro: AAOx3, no focal motor or sensory deficits in the UE or LE bilat Psych: Good judgement, thought and behavior. Cooperative Objective Labs 04/23/25 14:54 04/22/25 05:45 Labs: Laboratory Results - last 24 hr 04/19/25 04/23/25 04/23/25 18:18 10:22 14:54 WBC 16.6 H 17.5 H RBC 2.52 L 2.43 L Hgb 7.9 L 7.5 L Hct 24.0 L 22.9 L MCV 95 94 MCH 31.3 30.9 MCHC 32.9 32.8 RDW Std Deviation 45.6 H 45.0 H Plt Count 500 H 536 H D Neut % (Auto) 79 79 Lymph % (Auto) 12 12 [place] % (Auto) 7 8 Eos % (Auto) 1 1 Baso % (Auto) 0 0 Neut # (Auto) 13.1 H 13.8 H Lymph # (Auto) 2.0 2.0 [place] # (Auto) 1.1 H 1.4 H Eos # (Auto) 0.2 0.2 Baso # (Auto) 0.0 0.1 Immature Gran # (Auto) 0.09 H 0.10 H Absolute Nucleated RBC 0.00 0.00 Immature Gran % 1 H 1 H Nucleated RBC % 0 0 Crossmatch See Detail Quality Measures Quality Measures none Assessment & Plan Assessment Current Active Medications: Generic Name Dose Route Start Last Admin Trade Name Freq PRN Reason Stop Dose Admin Aspirin 81 mg 04/22/25 09:00 04/23/25 10:07 Aspirin Ec 81 Mg Tabec PO 05/22/25 08:59 81 mg QDAY YAMILETH Administration Atorvastatin Calcium 80 mg 04/22/25 09:00 04/23/25 10:07 Atorvastatin Calcium 20 Mg Tablet PO 05/22/25 08:59 80 mg QDAY YAMILETH Administration Clopidogrel Bisulfate 75 mg 04/22/25 09:00 04/23/25 10:10 Clopidogrel Bisulfate 75 Mg Tablet PO 05/22/25 08:59 75 mg QDAY YAMILETH Administration Iron Sucrose 200 mg 04/22/25 09:55 04/23/25 10:09 Iron Sucrose Cplx Inj 20 Mg/Ml Vial 5 Ml IVP 04/26/25 09:01 200 mg DAILY YAMILETH Administration Losartan Potassium 25 mg 04/22/25 10:00 04/23/25 10:08 Losartan Potassium 25 Mg Tablet PO 05/22/25 09:59 25 mg QDAY YAMILETH Administration Ondansetron HCl 4 mg 04/20/25 03:16 Ondansetron Inj 2 Mg/Ml Inj 2 Ml IVP 05/19/25 21:33 Q6H PRN NAUSEA OR VOMITING Protocol Pantoprazole Sodium 40 mg 04/20/25 09:00 04/23/25 10:07 Pantoprazole Inj 40 Mg Vial IVP 05/20/25 08:59 40 mg BID YAMILETH Administration Plan Mr. Ching is a 49-year-old male past medical history of hypertension, CVA on 03/2025 (on aspirin and Plavix) presented to the ED on 04/19/2025 with chief complaint of hematemesis and dark stool, on admission day 5 for acute blood loss anemia secondary to upper GI bleed. Stay complicated/extended due to worsening leukocytosis. #Leukocytosis Patient is s/p EGD and clip placement for anna youssef tears. WBC 17.5 (16.6 today morning and 14.1 yesterday). On arrival was 23.4 but had improved and now worsening again. Patient is afebrile. - Chest x-ray ordered - Zosyn 3.375 gm IV Qday - Cont monitor WBC - Stopped IV iron as patient has worsening leukocytosis and could have underlying infection. #Acute blood loss anemia secondary to upper GI bleed Patient presented with episode of hematemesis and melena. History of extensive alcohol use; reports cessation approximately about 2 years ago. Clinical picture concerning for upper GI bleed. - EGD (04/21/25): Esophageal ulcers, Anna Youssef tears (injected, treated with bipolar cautery. Clip placed). Gastritis. Normal duodenum. D/c octreotide: no concern for liver cirrhosis and vericeal bleeding, AST 10, ALT 12 D/c Ceftriaxone low risk of SBP - GI (Dr. Brandon) onboard - Anna Youssef tears treated with cautery and clipped. - Per GI, safe to resume aspirin and Plavix - Protonix 40 mg twice daily - Zofran 4 mg PRN for nausea - Monitor daily CBC and CMP - Transfuse if hemoglobin< 7 - Regular diet - D/c IV iron due to leukocutosis #Hx CVA, infarct of right basal ganglia(03/2025) Discharged on Plavix 75 mg, aspirin 81 mg. - Resumed Plavix and asprin - Resumed home atorvastatin #Essential hypertension- stable Patient has a history of hypertension which is managed with losartan 25 mg p.o. daily - Consider resuming home meds Health Maintenance: Code Status: Full DVT Prophylaxis: SCDs (asprin and plavix) GI Prophylaxis: Protonix Diet: Regular Diet Ferreira: None Lines: PIV Supplemental O2: None Disposition: Med Surg, monitoring WBC, discharge if WBC stabalizes Patient seen and care discussed with my attending physician, Dr. Castillo and my senior residents Dr. Fracisco Chen and Dr Nino. Nicole Hurst, S-IV
--- NOTE | 2025-04-23 16:30 | XR_ITS ---
Examination: AP chest single view. Technique: AP portable upright chest single view Date and time: April,, 1644 hrs. Comparison: 04/19/2025. Indications: Fever and leukocytosis today. Findings: Minimal prominence of ventricle. No pneumonia or pulmonary edema. 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 Impression: No pneumonia identified.
[2025-04-23] MEDS: PIPER/TAZO 3.375 GM PREMIX 3.375 GM/50 ML BAG IV ×2 (17:04→21:24)
--- NOTE | 2025-04-23 21:48 | PD.IMPROG ---
Documentation for date of: 04/23/25 Subjective Subjective Interval history: Hemoglobin hematocrit 7.5 and 22.9 Exam Vital Signs Temp Pulse Resp BP Pulse Ox O2 Del Method O2 Flow Rate 97.0 F 75 20 137/90 H 98 Room Air 3 04/23/25 16:00 04/23/25 16:00 04/23/25 16:00 04/23/25 16:00 04/23/25 16:00 04/23/25 16:00 04/20/25 18:35 Objective Labs 04/23/25 14:54 04/22/25 05:45 Labs: Laboratory Results - last 24 hr 04/23/25 04/23/25 10:22 14:54 WBC 16.6 H 17.5 H RBC 2.52 L 2.43 L Hgb 7.9 L 7.5 L Hct 24.0 L 22.9 L MCV 95 94 MCH 31.3 30.9 MCHC 32.9 32.8 RDW Std Deviation 45.6 H 45.0 H Plt Count 500 H 536 H D Neut % (Auto) 79 79 Lymph % (Auto) 12 12 [place] % (Auto) 7 8 Eos % (Auto) 1 1 Baso % (Auto) 0 0 Neut # (Auto) 13.1 H 13.8 H Lymph # (Auto) 2.0 2.0 [place] # (Auto) 1.1 H 1.4 H Eos # (Auto) 0.2 0.2 Baso # (Auto) 0.0 0.1 Immature Gran # (Auto) 0.09 H 0.10 H Absolute Nucleated RBC 0.00 0.00 Immature Gran % 1 H 1 H Nucleated RBC % 0 0 Impressions Impression: Very large Anna-Malhotra tear status post endoscopic intervention Hemoglobin hematocrit relatively stable Leukocytosis Continue current management Assessment & Plan A&P Narrative # Hematemesis # Melena Plan IV Protonix Serial CBC Transfuse PRBC if the hemoglobin drops below 7 g Aspirin and Plavix Hold off Consent obtained for fiberoptic esophagogastroduodenoscopy with possible biopsy possible therapeutic intervention under intravenous moderate sedation EGD other medical problems include Essential hypertension CVA on aspirin and Plavix Thank you very much for the opportunity to participate in the care of this patient Time Spent With Patient Time: Total time spent is greater than 50% in coordination of care (as documented) at patient's floor/unit and/or counseling patient:
--- NOTE | 2025-04-23 22:10 | PC.NURSE ---
Patient transferred via bed from room 376 to room 371
[2025-04-24] VITALS: BP 125/69; PULSE 69; PULSE 92; RESP 19; TEMP 36.8; O2SAT 99
[2025-04-24 04:00] VITALS: BP 124/76; PULSE 70; PULSE 78; RESP 16; TEMP 36.2; O2SAT 96
[2025-04-24] MEDS: PIPER/TAZO 3.375 GM PREMIX 3.375 GM/50 ML BAG IV (05:18)
[2025-04-24 06:18] LABS: Basophils # (Auto) 0.0 Thou/mm3 (0.0-0.2); Basophils % (Auto) 0 % (0-2.5); Eosinophils # (Auto) 0.2 Thou/mm3 (0.0-0.5); Eosinophils % (Auto) 2 % (0-10); Hematocrit 22.0 % (41.0-53.0); Immature Granulocytes Auto 0.13 Thou/mm3 (0.00-0.00); Lymphocytes # (Auto) 2.1 Thou/mm3 (1.0-4.8); Lymphocytes % (Auto) 14 % (10-50); Mean Corpuscular HGB Conc 33.6 g/dl (31.0-37.0); Mean Corpuscular Hemoglobin 31.6 pg (25.0-35.0); Mean Corpuscular Volume 94 fL (80-100); Monocytes # (Auto) 0.9 Thou/mm3 (0.0-0.8); Monocytes % (Auto) 6 % (0-12); Neutrophils # (Auto) 11.4 Thou/mm3 (1.8-7.7); Neutrophils % (Auto) 77 % (37-80); Nucleated Red Blood Cell # 0.00 Thou/mm3 (0.00-0.00); Nucleated Red Blood Cell % 0 /100 WBC (0); Platelet Count 552 Thou/mm3 (140-440); RDW Standard Deviation 45.2 fL (35.1-43.9); Red Blood Count 2.34 Miln/mm3 (4.50-5.90); White Blood Count 14.8 Thou/mm3 (3.8-10.6)
[2025-04-24 06:19] LABS: Hemoglobin 7.4 g/dL (13.5-16.0)
[2025-04-24 06:49] LABS: Alanine Aminotransferase 8 U/L (10-49); Albumin, Serum 3.4 gm/dL (3.5-5.0); Albumin/Globulin Ratio 1.5 (1.2-2.2); Alkaline Phosphatase 71 U/L (46-116); Anion Gap 11 (7-16); Aspartate Amino Transferase 11 U/L (0-34); BUN/Creatinine Ratio 10 Ratio (12-20); Bilirubin,Total 0.2 mg/dL (0.3-1.2); Blood Urea Nitrogen 10 mg/dL (9-23); Calcium 8.7 mg/dL (8.3-10.6); Calcium (Corrected) 9.2 mg/dL (8.5-10.1); Carbon Dioxide 26.9 mMol/L (20.0-31.0); Chloride 104 mMol/L (98-107); Creatinine (Component) 1.0 mg/dL (0.6-1.3); Estimated Creatinine Clearance 98.1 mL/min (>60); Globulin 2.2 gm/dL (2.3-3.5); Glucose 92 mg/dL (74-106); Magnesium 1.8 mg/dL (1.6-2.6); Osmolality,Calculated 282 (275-295); Phosphorous 3.5 mg/dL (2.4-5.1); Potassium 3.9 mMol/L (3.4-5.1); Sodium 142 mMol/L (136-145); Total Protein 5.6 gm/dL (5.7-8.2); eGFR > 60 See Note
[2025-04-24 07:25] VITALS: BP 128/73; PULSE 72; RESP 17; TEMP 36.2; O2SAT 97
[2025-04-24 08:00] VITALS: PULSE 72
[2025-04-24] MEDS: CLOPIDOGREL BISULFATE 75 MG TABLET PO (08:39)
[2025-04-24] MEDS: ASPIRIN EC 81 MG TABEC PO (08:39)
[2025-04-24 08:40] VITALS: BP 128/73; PULSE 72
[2025-04-24] MEDS: LOSARTAN POTASSIUM 25 MG TABLET PO (08:40)
[2025-04-24] MEDS: ATORVASTATIN CALCIUM 20 MG TABLET 80 MG PO (08:40)
[2025-04-24] MEDS: Milk Of Magnesia Susp 30 ML UDC PO (10:00)
--- NOTE | 2025-04-24 11:51 | ESDS_ITS ---
<Statement entered by Grupo Castillo MD - 04/26/25 14:19> I reviewed above note and agree with findings and plans. I have also personally examined the patient with medicine team and went over assessment and plan with medical team including rn international and resident physician. <Statement entered by Paul Chen MD - 04/24/25 15:38> Note reviewed and agree with care plan as documented. Please refer to the note below for further details. Plan discussed with attending physician Dr. Jonathan Chen MD PGY-2 Internal Medicine Planned Discharge Date 04/24/25 DS: Providers Provider Date of admission: 04/19/25 21:30 Primary care physician: Physician No Primary/Family Admitting Provider: Janet Chaudhary MD Attending Provider on Admission: Grupo Castillo MD Consults: 04/19/25 17:57 Consult to Gastroenterology Stat Comment: Consulting Provider: Shannan Brandon Attending Provider on DC: Rosa Isela Hernandez Discharging Provider: Rosa Isela Hernandez DS: Diagnosis Problem List Completed Was Problem List Reviewed/Reconciled?: Yes Hospital Course Hospital Course Hospital course: Catalina Ching, 49 y/o male, with past medical history of hypertension, CVA on 04/2025 (on asprin and plavix) was admitted to [facility] on 04/19/25 for acute blood loss anemia secondary to upper GI bleed. Patient presented due to vomiting brown material and dark stools. In the ED patient had remarkable vital of heart rate of 124. Initial labs were remarkable for WBC 23.4, Hemoglobin 10.3, Hematocrit 31.5. In the ED patient was given metoclopramide, Protonix, 1L NS and the patient was admitted for GI bleed workup. On 04/20/25, Dr. Brandon (GI) did EGD, found esophageal ulcers, gastritis, Anna Malhotra tears (injected, treated with bipolar cautery and placed a clip). Post EGD, H and H stabilized but patient's stay was extended due to Leukocytosis (WBC 17.5), patient was started on Zosyn. On 04/24/25, WBC improved to 14.8, no fever or other signs of infection. Patient to be discharged on 5 days of empiric Augmentin and to be followed outpatient with PCP and GI (Dr. Brandon) within [address] [place] of discharge. Problem List: #Acute blood loss anemia secondary to upper GI bleed #Esophageal ulcers #Anna Malhotra tear #Leukocytosis #Hx CVA, infarct of right basal ganglia #Essential hypertension Discharge instructions: - Please take prescribed antibiotic (Augmentin) for 5 days 2 times a day as prescribed. - Continue taking other medication as prescribed: asprin, Plavix, atorvastatin, and losartan. - Follow up with you primary doctor within 1 week of discharge. - Follow up with Dr. Brandon (GI doctor you saw in the hospital) within 1 week of discharge. - Call 911 or come to the emergency department if you see any blood in stool (could look bright red or dark brown/tarry) or in vomiting. - Come to the hospital if you have high fevers or worsening of symtpoms. Time Spent with Patient Time attestation: Total time spent providing and/or coordinating discharge services: Time spent: Greater than 30 minutes Exam Vital Signs Temp Pulse Resp BP Pulse Ox O2 Del Method O2 Flow Rate 97.2 F 72 17 128/73 97 Room Air 3 04/24/25 07:25 04/24/25 08:40 04/24/25 07:25 04/24/25 08:40 04/24/25 07:25 04/24/25 07:25 04/20/25 18:35 Discharge Plan Plan Patient Disposition: HOME (Self Care) Care Plan Goals: - Please take prescribed antibiotic (Augmentin) for 5 days 2 times a day as prescribed. - Continue taking other medication as prescribed: asprin, Plavix, atorvastatin, and losartan. - Follow up with you primary doctor within 1 week of discharge. - Follow up with Dr. Brandon (GI doctor you saw in the hospital) within 1 week of discharge. - Call 911 or come to the emergency department if you see any blood in stool (could look bright red or dark brown/tarry) or in vomiting. - Come to the hospital if you have high fevers or worsening of symtpoms. Prescriptions/Referrals Prescriptions/Med Rec: New amoxicillin-pot clavulanate 875-125 mg tablet 1 tab PO BID 5 Days Qty: 10 0RF Continued aspirin 81 mg capsule 81 mg PO QDAY Qty: 30 0RF clopidogrel [Plavix] 75 mg tablet 75 mg PO QDAY Qty: 30 0RF atorvastatin 80 mg tablet 80 mg PO QDAY Qty: 30 0RF losartan 25 mg tablet 25 mg PO QDAY Qty: 30 0RF Referrals: No Primary/Family,Physician [Primary Care Provider] Patient/Caregiver Discharge Instructions Print Language: Mongolian Stand Alone Forms: [facility]ak[facility] Award Info., Patient Portal Info Letter Discharge Order Discharge Orders: Discharge (Routine); Ordered 04/24/25 Ordered By: Pual Chen Quality Discharge Quality Measures VTE prophylaxis
[2025-04-24 12:00] VITALS: BP 126/76; PULSE 72; RESP 17; TEMP 36.2; O2SAT 97
== END 2025-04-24 12:14 | disposition home or self-care (01) | DRG 242 ==
LOC: SERX 18:03 → SERHOLD 21:44 → S2NX 22:58 → S3SX 04-21 07:29
PROVIDERS: Emergency Medicine; Specialist; Student in an Organized Health Care Education/Training Program; Admitting Provider Student in an Organized Health Care Education/Training Program; Emergency Provider Family Medicine; Visit Provider Internal Medicine
PROC: (CPT 43239; principal; 2025-04-20 17:30)
DX: K22.6 Gastro-esophageal laceration-hemorrhage syndrome (principal); K22.11 Ulcer of esophagus with bleeding; I10 Essential (primary) hypertension; F17.210 Nicotine dependence, cigarettes, uncomplicated; D62 Acute posthemorrhagic anemia; D72.829 Elevated white blood cell count, unspecified; N17.9 Acute kidney failure, unspecified; Z79.02 Long term (current) use of antithrombotics/antiplatelets; Z86.73 Personal history of transient ischemic attack (TIA), and cerebral infarction without residual deficits; Z79.82 Long term (current) use of aspirin; Z87.19 Personal history of other diseases of the digestive system
CPT/HCPCS: 36415; 70450; 71045; 80053; 80307; 80320; 81001; 82270; 83690; 83735; 84100; 84484; 85014; 85018; 85025; 85610; 85652; 85730; 86850; 86900; 86901; 86923; 87081; 93005; 93225; 96361; 96365; 96375; 96376; 99285; A4649; J0168; J0696; J1200; J1756; J2250; J2354; J2470; J2543; J2765; J3010; J3475; J7030; J7050; J7120; A9270; G0480